=== PATIENT | female | born 1960 | race Caucasian/White ===

== ENCOUNTER → 2018-08-06 | Outpatient (CLI) | payer OTHER ==
--- NOTE | 2018-08-07 08:54 | MM ---
Reason for exam: screening (asymptomatic). Last mammogram was performed 2 years and 10 months ago. History: Patient history of endometrial cancer. Family history of breast cancer in mother. Excisional biopsy of the right breast. Physical Findings: A clinical breast exam by your physician is recommended on an annual basis and results should be correlated with mammographic findings. MG 3D Screening Mammo W/Cad Bilateral CC and MLO view(s) were taken. Prior study comparison: October 12, 2015, bilateral MG screening mammo w CAD. February 17, 2014, mammogram, performed at [facility]. The breast tissue is heterogeneously dense. This may lower the sensitivity of mammography. No suspicious abnormality. No significant changes when compared with prior studies. ASSESSMENT: Negative, BI-RAD 1 RECOMMENDATION: Routine screening mammogram of both breasts in 1 year.
== END | disposition home or self-care (01) ==
LOC: RADMAMWWP 07:30
PROVIDERS: ATTEND Family Medicine
DX: Z12.31 Encounter for screening mammogram for malignant neoplasm of breast (principal)
CPT/HCPCS: 77063; 77067

== ENCOUNTER → 2019-09-16 | Outpatient (CLI) | payer OTHER ==
--- NOTE | 2019-09-16 14:07 | US ---
EXAMINATION TYPE: US thyroid st tissue head/neck DATE OF EXAM: 09/16/2019 COMPARISON: NONE CLINICAL HISTORY: R13.10 dysphagia. Difficulty swallowing medication per patient GLAND SIZE: Right Lobe: 3.7 x 1.4 x 1.8 cm Overall Parenchyma: homogenous Left Lobe: 3.2 x 1.2 x 1.1 cm Overall Parenchyma: homogeneous Isthmus Thickness: 0.3 cm NODULES RIGHT: # of nodules measured on right: 2 largest of multiple 1. 0.7 X 0.8 x 0.4 cm hypoechoic mixed nodule at the mid pole with well-defined margins; present wi th microcalcifications. This nodule is wider than tall and shows intranodular vascularity. 2. 0.2 X 0.2 x 0.2 cm hypoechoic cystic nodule at the mid lower pole with well-defined margins. Th is nodule is wide as is tall and shows no intranodular vascularity. LEFT: # of nodules measured on left: 2 largest of multiple 1. 0.6 X 0.7 x 0.4 cm isoechoic solid nodule at the mid pole with well-defined margins. This nodul e is wider than tall and shows intranodular vascularity. 2. 0.8 X 0.7 x 0.7 cm hypoechoic mixed nodule at the lower pole with well-defined margins; present w ith microcalcifications. This nodule is wide as is tall and shows intranodular vascularity. ISTHMUS: # of nodules measured in the isthmus: 1 1. 0.2 X 0.2 x 0.1 cm hypoechoic cystic nodule at the lower isthmus with well-defined margins. Thi s nodule is wide as is tall and shows no intranodular vascularity. Bilateral neck scanned: prominent lymph node = 1.2 x 0.9 x 0.5cm is seen inferior to left submandibu lar gland . IMPRESSION: Nonspecific thyroid nodularity. Clinical correlation and progress studies are advised.
--- NOTE | 2019-09-17 12:16 | ECHOF ---
Referral Reason:R13.10 dysphagia, R01.1 cardiac murmur MEASUREMENTS -------- HEIGHT: 165.1 cm WEIGHT: 97.5 kg BP: RVIDd: 3.5 cm (< 3.3) IVSd: 1.0 cm (0.6 - 1.1) LVIDd: 4.2 cm (3.9 - 5.3) LVPWd: 1.1 cm (0.6 - 1.1) IVSs: 1.4 cm LVIDs: 3.8 cm LVPWs: 1.2 cm LA Diam: 3.6 cm (2.7 - 3.8) LAESV Index (A-L): 22.54 ml/m Ao Diam: 2.9 cm (2.0 - 3.7) AV Cusp: 1.9 cm (1.5 - 2.6) LA Diam: 3.7 cm (2.7 - 3.8) MV EXCURSION: 11.453 mm (> 18.000) MV EF SLOPE: 85 mm/s (70 - 150) EPSS: 0.2 cm MV E Marlon: 0.76 m/s MV DecT: 287 ms MV A Marlon: 0.97 m/s MV E/A Ratio: 0.78 RAP: 5.00 mmHg RVSP: 16.46 mmHg FINDINGS -------- Sinus rhythm. This was a technically adequate study. LV size, wall thickness and systolic function are normal, with an EF greater than 55%. The left bulmaro tricular size is normal. The right ventricle is normal in size. The left atrial size is normal. The right atrial size is normal. There is mild aortic valve sclerosis. There is no evidence of aortic regurgitation. Mild mitral annular calcification present. Mild mitral regurgitation is present. Mild tricuspid regurgitation present. Right ventricular systolic pressure is normal at < 35 mmHg. There is no pulmonic regurgitation present. The aortic root size is normal. There is no pericardial effusion. CONCLUSIONS -------- 1. Sinus rhythm. 2. This was a technically adequate study. 3. LV size, wall thickness and systolic function are normal, with an EF greater than 55%. 4. The left ventricular size is normal. 5. The right ventricle is normal in size. 6. The left atrial size is normal. 7. The right atrial size is normal. 8. There is mild aortic valve sclerosis. 9. Mild mitral annular calcification present. 10. Mild mitral regurgitation is present. 11. Mild tricuspid regurgitation present. 12. Right ventricular systolic pressure is normal at < 35 mmHg. 13. There is no pulmonic regurgitation present. 14. The aortic root size is normal. 15. There is no pericardial effusion. [employer]: Jazmyn Razo RDCS
== END | disposition home or self-care (01) ==
LOC: RADUSWWP 12:52
PROVIDERS: ATTEND Family Medicine
DX: I08.1 Rheumatic disorders of both mitral and tricuspid valves (principal); R13.10 Dysphagia, unspecified
CPT/HCPCS: 76536; 93306

== ENCOUNTER → 2019-11-04 | Outpatient (CLI) | payer OTHER ==
--- NOTE | 2019-11-05 08:47 | MM ---
Reason for exam: screening (asymptomatic). Last mammogram was performed 1 year and 3 months ago. History: Patient is postmenopausal and history of endometrial cancer. Family history of breast cancer in mother. Excisional biopsy of the right breast. Took hormonal contraceptives for 14 years. Physical Findings: A clinical breast exam by your physician is recommended on an annual basis and results should be correlated with mammographic findings. MG 3D Screening Mammo W/Cad Bilateral CC and MLO view(s) were taken. Prior study comparison: August 06, 2018, bilateral MG 3d screening mammo w/cad. October 12, 2015, bilateral MG screening mammo w CAD. The breast tissue is heterogeneously dense. This may lower the sensitivity of mammography. No significant changes when compared with prior studies. ASSESSMENT: Benign, BI-RAD 2 RECOMMENDATION: Routine screening mammogram of both breasts in 1 year.
== END | disposition home or self-care (01) ==
LOC: RADMAMWWP 13:19
PROVIDERS: ATTEND Family Medicine
DX: Z12.31 Encounter for screening mammogram for malignant neoplasm of breast (principal)
CPT/HCPCS: 77063; 77067

== ENCOUNTER 2020-01-19 13:23 | Emergency (ER) | payer OTHER ==
[2020-01-19 13:32] VITALS: RESP 18; TEMP 99.1
[2020-01-19 13:37] LABS: Glucose,Whole Blood 94 mg/dL (75-99)
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
[2020-01-19 13:57] LABS: Basophils % (A) 0 %; Eosinophils # (A) 0.1 k/uL (0-0.7); Eosinophils % (A) 1 %; HCT 37.1 % (34.0-46.0); HGB 12.8 gm/dL (11.4-16.0); Lymphocytes # (A) 2.2 k/uL (1.0-4.8); Lymphocytes % (A) 27 %; MCH 30.3 pg (25.0-35.0); MCHC 34.5 g/dL (31.0-37.0); MCV 87.8 fL (80.0-100.0); Mean Platelet Volume 6.5; Monocytes # (A) 0.4 k/uL (0-1.0); Monocytes % (A) 5 %; Neutrophils # (A) 5.6 k/uL (1.3-7.7); Neutrophils % (A) 66 %; Platelet Count 238 k/uL (150-450); RBC 4.22 m/uL (3.80-5.40); RDW 13.6 % (11.5-15.5); WBC 8.5 k/uL (3.8-10.6)
[2020-01-19 14:05] LABS: Prothrombin Time 10.1 sec (9.0-12.0)
[2020-01-19 14:06] LABS: Partial Thromboplastin Time 23.4 sec (22.0-30.0)
[2020-01-19 14:12] LABS: ALT 30 U/L (4-34); AST 52 U/L (14-36); African American GFR (CKD) >90 (>60 ml/min/1.73 sqM); Albumin 4.1 g/dL (3.5-5.0); Alcohol <10 mg/dL; Alkaline Phosphatase 131 U/L (38-126); Anion Gap 5 mmol/L; Blood Urea Nitrogen 16 mg/dL (7-17); Calcium 8.9 mg/dL (8.4-10.2); Carbon Dioxide 29 mmol/L (22-30); Chloride 102 mmol/L (98-107); Creatine Kinase 296 U/L (30-135); Glucose 99 mg/dL (74-99); Non-African American GFR(CKD) >90 (>60 ml/min/1.73 sqM); Potassium 4.2 mmol/L (3.5-5.1); Sodium 136 mmol/L (137-145); Total Bilirubin 0.3 mg/dL (0.2-1.3); Total Protein 7.2 g/dL (6.3-8.2)
[2020-01-19] MEDS ORDERED: HYDROmorphone 1 MG/ML 1 ML SYRINGE IVP STA (14:13)
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
[2020-01-19 15:40] VITALS: BP 148/88; PULSE 98
== END 2020-01-19 20:25 | disposition home or self-care (01) ==
LOC: EC 13:23
DX: S93.401A Sprain of unspecified ligament of right ankle, initial encounter (principal); S81.811A Laceration without foreign body, right lower leg, initial encounter; S81.831A Puncture wound without foreign body, right lower leg, initial encounter; S20.219A Contusion of unspecified front wall of thorax, initial encounter; S80.01XA Contusion of right knee, initial encounter; Z79.82 Long term (current) use of aspirin; Z79.899 Other long term (current) drug therapy; Z88.1 Allergy status to other antibiotic agents; V59.40XA Driver of pick-up truck or van injured in collision with unspecified motor vehicles in traffic accident, initial encounter; Y92.410 Unspecified street and highway as the place of occurrence of the external cause
CPT/HCPCS: 36415; 93005; 86900; 86901; 80053; 82550; 83605; 84484; 85025; 85610; 85730; 86850; 80320; 72170; 73502; 73590; 73610; 71045; 72125; 70450; 71260; 74177; 99284; 96374; 96375; J0690; J1170; Q9967

== ENCOUNTER → 2020-01-25 | Outpatient (CLI) | payer OTHER ==
--- NOTE | 2020-01-25 15:55 | US ---
EXAMINATION TYPE: US venous doppler duplex LE RT DATE OF EXAM: 01/25/2020 3:37 PM COMPARISON: NONE CLINICAL HISTORY: R22.41 Swelling, M52.561 Pain. Edema SIDE PERFORMED: Right TECHNIQUE: The lower extremity deep venous system is examined utilizing real time linear array sonog tre with graded compression, doppler sonography and color-flow sonography. VESSELS IMAGED: External Iliac Vein (EIV) Common Femoral Vein Deep Femoral Vein Greater Saphenous Vein * Femoral Vein Popliteal Vein Small Saphenous Vein * Proximal Calf Veins (* superficial vessels) Right Leg: Negative for DVT IMPRESSION: No evidence for DVT at this time.
== END | disposition home or self-care (01) ==
LOC: RADUSWWP 15:17
PROVIDERS: ATTEND Orthopaedic Surgery Orthopaedic Surgery of the Spine
DX: I80.01 Phlebitis and thrombophlebitis of superficial vessels of right lower extremity (principal)

== ENCOUNTER 2020-02-09 15:45 | Inpatient (IN) | payer MEDICAID, OTHER ==
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
[2020-02-09 16:40] LABS: Basophils % (A) 0 %; Eosinophils # (A) 0.1 k/uL (0-0.7); Eosinophils % (A) 1 %; HCT 37.6 % (34.0-46.0); Lymphocytes % (A) 28 %; MCH 29.7 pg (25.0-35.0); MCHC 34.7 g/dL (31.0-37.0); MCV 85.5 fL (80.0-100.0); Mean Platelet Volume 6.6; Monocytes # (A) 0.4 k/uL (0-1.0); Monocytes % (A) 5 %; Neutrophils # (A) 4.7 k/uL (1.3-7.7); Neutrophils % (A) 64 %; Platelet Count 283 k/uL (150-450); RBC 4.39 m/uL (3.80-5.40); RDW 13.6 % (11.5-15.5); WBC 7.3 k/uL (3.8-10.6)
[2020-02-09 16:48] LABS: ALT 26 U/L (4-34); AST 38 U/L (14-36); African American GFR (CKD) >90 (>60 ml/min/1.73 sqM); Albumin 4.3 g/dL (3.5-5.0); Alkaline Phosphatase 149 U/L (38-126); Anion Gap 9 mmol/L; Blood Urea Nitrogen 16 mg/dL (7-17); Calcium 9.3 mg/dL (8.4-10.2); Carbon Dioxide 26 mmol/L (22-30); Chloride 102 mmol/L (98-107); Glucose 96 mg/dL (74-99); Magnesium 1.7 mg/dL (1.6-2.3); Non-African American GFR(CKD) >90 (>60 ml/min/1.73 sqM); Potassium 4.1 mmol/L (3.5-5.1); Sodium 137 mmol/L (137-145); Total Bilirubin 0.4 mg/dL (0.2-1.3)
--- NOTE | 2020-02-09 16:54 | XR ---
EXAMINATION TYPE: XR ribs RT w pa chest xray DATE OF EXAM: 02/09/2020 COMPARISON: 01/19/2020 HISTORY: Pain TECHNIQUE: 5 views FINDINGS: Heart and mediastinum are normal. Lungs are clear. Diaphragm is normal. Bony thorax appears normal. There are chest leads. Pulmonary vascularity is normal. IMPRESSION: Normal chest. No change.
[2020-02-09 16:56] LABS: Prothrombin Time 10.1 sec (9.0-12.0)
[2020-02-09 16:58] LABS: Amphetamine Screen,Urine Not Detected (NotDetected); Barbiturate Screen,Urine Not Detected (NotDetected); Benzodiazepines Screen,Urine Detected (NotDetected); Cocaine Screen,Urine Not Detected (NotDetected); Methadone Screen, Urine Not Detected (NotDetected); Opiate Screen,Urine Detected (NotDetected); Oxycodone Screen, Urine Not Detected (NotDetected); Phencyclidine Screen,Urine Not Detected (NotDetected); Tricyclic Antidepressant,Urine Not Detected (NotDetected); Urn Cannabinoid Scrn Not Detected (NotDetected)
[2020-02-09 17:10] LABS: D-Dimer 1.41 mg/L FEU (<0.60)
--- NOTE | 2020-02-09 18:03 | CT ---
EXAMINATION TYPE: CT angio chest DATE OF EXAM: 02/09/2020 COMPARISON: None HISTORY: Right sided chest pain. CT DLP: 351 mGycm Automated exposure control for dose reduction was used. CONTRAST: Performed with IV Contrast, patient injected with 100 mL of Isovue 370. There are 3-D post processed images. The lungs are clear of consolidation. There is no evidence of a pulmonary mass. There is no pleural e ffusion. There is no pericardial effusion. Heart size is normal. There is normal contrast opacification of the pulmonary arteries. There are no filling defects. There are no hilar masses. There is no mediastinal adenopathy. Thoracic aorta is intact. There is no aneurysm or dissection. Ascending aorta measures 3 cm. The bony thorax is intact. Sternum is intact. Upper abdominal soft tissues are intact. IMPRESSION: Negative exam. No evidence of pulmonary embolism.
[2020-02-09] MEDS ORDERED: traMADol 50 MG TAB PO PRN (23:14)
[2020-02-09] MEDS ORDERED: MAG HYDROX/AL HYDROX/SIMETH 30 ML CUP PO PRN (23:15)
[2020-02-09] MEDS ORDERED: MAGNESIUM HYDROXIDE 2,400 MG/10 ML CUP PO PRN (23:15)
[2020-02-09] MEDS ORDERED: LORazepam 1 MG TAB PO PRN (23:15)
[2020-02-09] MEDS ORDERED: LORazepam 2 MG/ML INJ IM PRN (23:17)
[2020-02-09] MEDS ORDERED: HALOPERIDOL LACTATE 5 MG/ML 1 ML VIAL IM PRN (23:18)
[2020-02-10] MEDS: FLUoxetine HCL 20 MG CAP PO SCH ×3 (00:29→10:32)
[2020-02-10 07:51] LABS: Basophils % (A) 1 %; Eosinophils # (A) 0.1 k/uL (0-0.7); Eosinophils % (A) 1 %; HCT 38.5 % (34.0-46.0); HGB 12.9 gm/dL (11.4-16.0); Lymphocytes # (A) 2.3 k/uL (1.0-4.8); Lymphocytes % (A) 34 %; MCH 29.1 pg (25.0-35.0); MCHC 33.5 g/dL (31.0-37.0); MCV 86.9 fL (80.0-100.0); Mean Platelet Volume 6.6; Monocytes # (A) 0.3 k/uL (0-1.0); Monocytes % (A) 5 %; Neutrophils # (A) 3.9 k/uL (1.3-7.7); Neutrophils % (A) 58 %; Platelet Count 303 k/uL (150-450); RBC 4.43 m/uL (3.80-5.40); RDW 13.9 % (11.5-15.5); WBC 6.8 k/uL (3.8-10.6)
[2020-02-10 08:06] LABS: ALT 26 U/L (4-34); AST 39 U/L (14-36); African American GFR (CKD) >90 (>60 ml/min/1.73 sqM); Albumin 4.4 g/dL (3.5-5.0); Alkaline Phosphatase 125 U/L (38-126); Anion Gap 9 mmol/L; Blood Urea Nitrogen 15 mg/dL (7-17); Calcium 9.4 mg/dL (8.4-10.2); Carbon Dioxide 30 mmol/L (22-30); Chloride 99 mmol/L (98-107); Glucose 100 mg/dL (74-99); HDL Cholesterol 39 mg/dL (40-60); Non-African American GFR(CKD) >90 (>60 ml/min/1.73 sqM); Potassium 4.2 mmol/L (3.5-5.1); Sodium 138 mmol/L (137-145); Total Bilirubin 0.6 mg/dL (0.2-1.3)
[2020-02-10 08:17] LABS: Cholesterol 377 mg/dL (<200); Triglycerides 924 mg/dL (<150)
[2020-02-10] MEDS ORDERED: PNEUMOCOCCAL VACC-PNEUMOVAX 23 25 MCG/0.5 ML VIAL IM ONE (09:00)
[2020-02-10] MEDS ORDERED: NON FORMULARY DRUG (Potassium Gluconate [Potassium Gluconate] 99 MG Tablet.Er) PO SCH (09:00)
[2020-02-10] MEDS ORDERED: NON FORMULARY DRUG (Cholecalciferol (Vitamin D3) [Vitamin D3] 125 MCG Capsule) PO SCH (09:00)
[2020-02-10] MEDS ORDERED: NON FORMULARY DRUG (Vitamin C/Biotin [Hair, Skin And Nails] 1 EACH Tab.Chew) PO SCH (09:00)
[2020-02-10] MEDS: ASPIRIN 81 MG PO SCH (10:27)
[2020-02-10] MEDS: PANTOPRAZOLE 40 MG TABLET PO SCH (10:28)
[2020-02-10] MEDS: CALCIUM CARB-VIT D 500MG-200UN 1 EACH TAB PO SCH (10:28)
[2020-02-10] MEDS: MAGNESIUM OXIDE 400 MG TAB PO SCH (10:28)
[2020-02-10] MEDS: hydroCHLOROthiazide 25 MG TAB PO SCH (10:28)
[2020-02-10] MEDS: MULTIVITAMINS, THERA 1 EACH TAB PO SCH (10:28)
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
[2020-02-10 12:53] LABS: Hemoglobin A1C 5.7 % (4.0-6.0)
[2020-02-10] MEDS: ACETAMINOPHEN TAB 325 MG TAB PO PRN (16:28)
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
--- NOTE | 2020-02-10 18:24 | XR ---
EXAMINATION TYPE: XR ankle complete RT DATE OF EXAM: 02/10/2020 COMPARISON: NONE HISTORY: Ankle pain TECHNIQUE: 3 views FINDINGS: Ankle mortise is anatomic. I see no fracture nor dislocation. Joint spaces are fairly ramiro l. There are small degenerative cysts in the lateral dome of the talus. IMPRESSION: No fracture seen.
[2020-02-10] MEDS: PRAVASTATIN SODIUM 20 MG TAB PO SCH (19:56)
[2020-02-10] MEDS: TEMAZEPAM 15 MG CAP PO PRN (19:56)
[2020-02-11] MEDS: MAGNESIUM OXIDE 400 MG TAB PO SCH (09:07)
[2020-02-11] MEDS: CALCIUM CARB-VIT D 500MG-200UN 1 EACH TAB PO SCH (09:07)
[2020-02-11] MEDS: ASPIRIN 81 MG PO SCH (09:07)
[2020-02-11] MEDS: MULTIVITAMINS, THERA 1 EACH TAB PO SCH (09:07)
[2020-02-11] MEDS: hydroCHLOROthiazide 25 MG TAB PO SCH (09:07)
[2020-02-11] MEDS: VENLAFAXINE HCL ER 37.5 MG CAP PO SCH (09:07)
[2020-02-11] MEDS: FLUoxetine HCL 20 MG CAP PO SCH (09:07)
[2020-02-11] MEDS: PANTOPRAZOLE 40 MG TABLET PO SCH (09:07)
[2020-02-11] MEDS: ACETAMINOPHEN TAB 325 MG TAB PO PRN ×2 (09:09→20:24)
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
[2020-02-11] MEDS: PRAVASTATIN SODIUM 20 MG TAB PO SCH (20:23)
[2020-02-11] MEDS: TEMAZEPAM 15 MG CAP PO PRN (20:24)
[2020-02-12] MEDS: ACETAMINOPHEN TAB 325 MG TAB PO PRN ×2 (08:18→19:55)
[2020-02-12] MEDS: ASPIRIN 81 MG PO SCH (08:18)
[2020-02-12] MEDS: CALCIUM CARB-VIT D 500MG-200UN 1 EACH TAB PO SCH (08:18)
[2020-02-12] MEDS: FLUoxetine HCL 20 MG CAP PO SCH (08:19)
[2020-02-12] MEDS: hydroCHLOROthiazide 25 MG TAB PO SCH (08:19)
[2020-02-12] MEDS: PANTOPRAZOLE 40 MG TABLET PO SCH (08:19)
[2020-02-12] MEDS: MAGNESIUM OXIDE 400 MG TAB PO SCH (08:19)
[2020-02-12] MEDS: VENLAFAXINE HCL ER 37.5 MG CAP PO SCH (08:19)
[2020-02-12] MEDS: MULTIVITAMINS, THERA 1 EACH TAB PO SCH (08:19)
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
[2020-02-12 19:28] LABS: Appearance,Urine Clear (Clear); Bilirubin,Urine Negative (Negative); Blood,Urine Negative (Negative); Color,Urine Light Yellow; Glucose,Urine (UA) Negative (Negative); Ketones,Urine Negative (Negative); Leukocyte Esterase,Urine Negative (Negative); Nitrite,Urine Negative (Negative); PH, Urine 5.5 (5.0-8.0); Protein,Urine Negative (Negative); Specific Gravity,Urine 1.016 (1.001-1.035); Urobilinogen,Urine <2.0 mg/dL (<2.0)
[2020-02-12] MEDS: TEMAZEPAM 15 MG CAP PO PRN (19:55)
[2020-02-12] MEDS: PRAVASTATIN SODIUM 20 MG TAB PO SCH (19:55)
[2020-02-13] MEDS: ASPIRIN 81 MG PO SCH (08:08)
[2020-02-13] MEDS: MAGNESIUM OXIDE 400 MG TAB PO SCH (08:08)
[2020-02-13] MEDS: MULTIVITAMINS, THERA 1 EACH TAB PO SCH (08:08)
[2020-02-13] MEDS: PANTOPRAZOLE 40 MG TABLET PO SCH (08:09)
[2020-02-13] MEDS: CALCIUM CARB-VIT D 500MG-200UN 1 EACH TAB PO SCH (08:09)
[2020-02-13] MEDS: VENLAFAXINE HCL ER 75 MG CAP PO SCH (08:09)
[2020-02-13] MEDS: hydroCHLOROthiazide 25 MG TAB PO SCH (08:09)
[2020-02-13] MEDS: ACETAMINOPHEN TAB 325 MG TAB PO PRN ×2 (08:11→20:03)
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
[2020-02-13] MEDS: PRAVASTATIN SODIUM 20 MG TAB PO SCH (20:03)
[2020-02-13] MEDS: TEMAZEPAM 15 MG CAP PO PRN (20:03)
[2020-02-14] MEDS: CALCIUM CARB-VIT D 500MG-200UN 1 EACH TAB PO SCH (08:01)
[2020-02-14] MEDS: MULTIVITAMINS, THERA 1 EACH TAB PO SCH (08:01)
[2020-02-14] MEDS: hydroCHLOROthiazide 25 MG TAB PO SCH (08:01)
[2020-02-14] MEDS: PANTOPRAZOLE 40 MG TABLET PO SCH (08:01)
[2020-02-14] MEDS: ASPIRIN 81 MG PO SCH (08:01)
[2020-02-14] MEDS: VENLAFAXINE HCL ER 75 MG CAP PO SCH (08:01)
[2020-02-14] MEDS: MAGNESIUM OXIDE 400 MG TAB PO SCH (08:02)
[2020-02-14 08:05] VITALS: RESP 20
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
[2020-02-14] MEDS: ACETAMINOPHEN TAB 325 MG TAB PO PRN ×2 (16:41→20:00)
[2020-02-14] MEDS: PRAVASTATIN SODIUM 20 MG TAB PO SCH (20:01)
[2020-02-15 06:25] VITALS: BP 115/80; PULSE 65; TEMP 97.7
[2020-02-15] MEDS: ASPIRIN 81 MG PO SCH (07:49)
[2020-02-15] MEDS: CALCIUM CARB-VIT D 500MG-200UN 1 EACH TAB PO SCH (07:49)
[2020-02-15] MEDS: MAGNESIUM OXIDE 400 MG TAB PO SCH (07:50)
[2020-02-15] MEDS: hydroCHLOROthiazide 25 MG TAB PO SCH (07:50)
[2020-02-15] MEDS: ACETAMINOPHEN TAB 325 MG TAB PO PRN (07:51)
[2020-02-15] MEDS: VENLAFAXINE HCL ER 75 MG CAP PO SCH (07:51)
[2020-02-15] MEDS: MULTIVITAMINS, THERA 1 EACH TAB PO SCH (07:51)
[2020-02-15] MEDS: PANTOPRAZOLE 40 MG TABLET PO SCH (07:51)
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
== END 2020-02-15 12:05 | disposition home or self-care (01) | DRG 882 ==
LOC: EC 15:45 → 3MHU 21:53
PROVIDERS: ADMIT Psychiatry & Neurology Psychiatry; ATTEND Psychiatry & Neurology Psychiatry
PROC: 3E0234Z Introduction of Serum, Toxoid and Vaccine into Muscle, Percutaneous Approach (ICD-10-PCS; principal; 2020-02-10)
DX: F43.11 Post-traumatic stress disorder, acute (principal); R45.851 Suicidal ideations; F31.32 Bipolar disorder, current episode depressed, moderate; Z23 Encounter for immunization; Z20.828 Contact with and (suspected) exposure to other viral communicable diseases; S20.219A Contusion of unspecified front wall of thorax, initial encounter; S80.01XA Contusion of right knee, initial encounter; K21.9 Gastro-esophageal reflux disease without esophagitis; I10 Essential (primary) hypertension; E78.5 Hyperlipidemia, unspecified; E04.1 Nontoxic single thyroid nodule; G47.00 Insomnia, unspecified; G89.29 Other chronic pain; R26.2 Difficulty in walking, not elsewhere classified; E66.9 Obesity, unspecified; Z68.38 Body mass index [BMI] 38.0-38.9, adult; Z79.82 Long term (current) use of aspirin; Z79.899 Other long term (current) drug therapy; Z90.49 Acquired absence of other specified parts of digestive tract; Z87.19 Personal history of other diseases of the digestive system; Z98.890 Other specified postprocedural states; Z88.1 Allergy status to other antibiotic agents; Z88.8 Allergy status to other drugs, medicaments and biological substances; V43.52XA Car driver injured in collision with other type car in traffic accident, initial encounter; Y92.410 Unspecified street and highway as the place of occurrence of the external cause; Z81.8 Family history of other mental and behavioral disorders
CPT/HCPCS: 36415; 71275; 80053; 80061; 80306; 81003; 82075; 83036; 83735; 84443; 84484; 85025; 85379; 85610; 85730; 87635; 90732; 93005; 99285

== ENCOUNTER → 2020-02-09 | Outpatient (CLI) | payer OTHER ==
--- NOTE | 2020-02-09 17:55 | US ---
EXAMINATION TYPE: US venous doppler duplex LE RT DATE OF EXAM: 02/09/2020 3:36 PM COMPARISON: 01/25/2020 CLINICAL HISTORY: 59-year-old female R22.41 Localized swelling. SIDE PERFORMED: Right TECHNIQUE: The lower extremity deep venous system is examined utilizing real time linear array sonog tre with graded compression, doppler sonography and color-flow sonography. FINDINGS: VESSELS IMAGED: Common Femoral Vein Deep Femoral Vein Greater Saphenous Vein * Femoral Vein Popliteal Vein Small Saphenous Vein * Proximal Calf Veins PTV's and GSV* in entirety scanned per order. (* superficial vessels) Right Leg: Negative for DVT IMPRESSION: No evidence for DVT within the right lower extremity.
== END | disposition home or self-care (01) ==
LOC: RADUSWWP 15:03
PROVIDERS: ATTEND Orthopaedic Surgery
DX: I80.3 Phlebitis and thrombophlebitis of lower extremities, unspecified (principal)

== ENCOUNTER → 2020-04-06 | Outpatient (CLI) | payer OTHER ==
[2020-04-06 15:43] VITALS: BP 144/85; PULSE 103; RESP 18; TEMP 98.5; BMI 39.6
--- NOTE | 2020-04-06 16:05 | P.HPBAR ---
Bariatric H&P - History & Physicial H&P Date: 04/06/20 History & Physicial: Visit/CC: initial visit Patient initial contact: Initial weight: Initial weight in pounds: Height: 5 ft 4 in Initial BMI: Last weight: Current weight: 104.78 kg Current weight in pounds: 231.00 Current BMI: 39.6 [place] body weight (based on NIH guidelines): 54.431 kg Excess body weight loss: The patient is a 60 year-old F who presents for Bariatric Assessment. DATE OF SERVICE: 04/06/2020 REASON FOR CONSULTATION: Initial bariatric evaluation. HISTORY OF PRESENT ILLNESS: Vangie Spears is a 60-year-old female who comes with lifelong morbid obesity. She comes in looking into the gastric bypass. She has tried Weight watchers, Ali diet programs for weight loss and Vesna Patrice. Her highest weight is at present. Most of her past attempted weight loss was with [employer] of 60 pounds. She has sisters and her mother with troubles with weight loss and obesity. She denies personal or family history of stomach cancer. Her aunt had esophageal cancer. She has gastroesophageal reflux disease and takes Omeprazole. She reports food gets stuck in her throat. She had her colonoscopy. She reports troubles with poor sleep. She has arthritis of the lower back, hips, and knee from her obesity. She presents today first time in consultation for surgical weight loss options. At height of 5 feet 4 inches, her ideal body weight is 144 pounds. She comes in 231 pounds. Her body mass index is 39.7. She is 87 pounds overweight. PAST MEDICAL HISTORY: 1. Morbid obesity due to excess calories 2. Body mass index of 39.7, initial 3. Osteoarthritis of the knees. 4. Osteoarthritis of the lower back 5. Hypertensive heart disease. 6. Gastroesophageal reflux disease 7. Hyperlipidemia 8. Depressive disorder 9. Osteoarthritis of the hips PAST SURGICAL HISTORY: 1. Thyroid biopsy 2. Right breast lumpectomy 3. Tonsillectomy 4. Dilation and curettage 5. Cholecystectomy HOME MEDICATIONS: Home Medications Medication Instructions Recorded Confirmed Aspirin [Adult Low Dose Aspirin EC] 81 mg PO DAILY 10/24/15 04/06/20 Omeprazole 20 mg PO DAILY 10/24/15 04/06/20 Calcium Carbonate/Vitamin D3 1 cap PO DAILY 02/09/20 04/06/20 [Calcium 600-Vit D3 12.5 Mcg (500 Iu)] Cholecalciferol (Vitamin D3) 125 mcg PO DAILY 02/09/20 04/06/20 [Vitamin D3 (5000 Iu)] Magnesium Oxide [[place]] 500 mg PO DAILY 02/09/20 04/06/20 Multivit-Min/Iron/Folic/Lutein 1 tab PO DAILY 02/09/20 04/06/20 [Centrum Silver Women Tablet] Potassium Gluconate 99 mg PO DAILY 02/09/20 04/06/20 Pravastatin Sodium [Pravachol] 20 mg PO HS 02/09/20 04/06/20 Vitamin C/Biotin [Hair, Skin and 1 tab PO DAILY 02/09/20 04/06/20 Nails] hydroCHLOROthiazide [Hydrodiuril] 25 mg PO DAILY 02/09/20 04/06/20 traMADol HCL 50 mg PO TID PRN 02/09/20 04/06/20 Butalbital/Aspirin/Caffeine 1 - 2 tab PO Q8H PRN 04/06/20 04/06/20 [Ffgaxw-Eetjujd-Fwguooui 50-325-40 mg] Fenofibrate Nanocrystallized 145 mg PO DAILY 04/06/20 04/06/20 [Tricor] Previous Rx's Medication Instructions Recorded Venlafaxine HCl ER [Effexor XR] 75 mg PO DAILY #30 cap.er.24h 02/15/20 ALLERGIES: Allergies Allergy/AdvReac Type Severity Reaction Status Date / Time atorvastatin [From Lipitor] AdvReac Unknown Verified 04/06/20 17:01 cephalexin [From Keflex] AdvReac Unknown Verified 04/06/20 17:01 SOCIAL HISTORY: Past tobacco use. FAMILY HISTORY: No family history of ulcerative colitis disease or Crohn's disease. Family history of morbid obesity. No lupus in the family. No reports of stomach cancer. Aunt with stomach cancer. REVIEW OF ORGAN SYSTEMS: CONSTITUTIONAL: At height of 5 feet 4 inches, her ideal body weight is 144 pounds. She comes in 231 pounds. Her body mass index is 39.7. She is 87 pounds overweight. HEENT: Denies any active troubles with vision or hearing. Has troubles with swallowing. ENDOCRINE: Denies diabetes. No hypothyroidism. CARDIOVASCULAR: Denies reports of palpitations or heart attacks or chest pain. RESPIRATORY: Has daytime somnolence. Has troubles with sleep. Denies shortness of breath. GASTROINTESTINAL: Denies any bright red blood per rectum. No diarrhea. No constipation. Past colonoscopy MUSCULOSKELETAL: Has lower back pain and joint pain. Has osteoarthritis of the knees. NEURO: No headaches. No seizure disorders. PSYCH: Has depression. No suicidal ideation. RHEUMATOLOGIC: No lupus. No rheumatoid arthritis. HEMATOLOGIC: Denies any abnormal bleeding or bruising. No personal history of DVTs. SKIN: No rash. No skin cancer. PHYSICAL EXAM: VITAL SIGNS: Height 5 foot 4 inches, weight 231 pounds. BMI 39.7 Vital Signs Temp 98.5 F 04/06/20 15:35 Pulse 103 H 04/06/20 15:35 Resp 18 04/06/20 15:35 BP 144/85 04/06/20 15:35 Pulse Ox GENERAL: Well-developed in no acute distress. HEENT: No scleral icterus. Extraocular movements grossly intact. Hears conversational speech. No nasal drainage. NECK: Supple without lymphadenopathy. CHEST: Nonlabored respirations with equal bilateral excursions. CARDIOVASCULAR: Tachycardic. Distal 2+ pulses. ABDOMEN: Obese, soft, nontender, nondistended. MUSCULOSKELETAL: No clubbing, cyanosis. NEURO: No focal or lateralizing signs. Cranial nerves 2 through 12 grossly within normal limits. PSYCH: Appropriate affect. Alert and oriented to person, place and time. SKIN: Good skin turgor. Well perfused. ASSESSMENT: 1. Morbid obesity due to excess calories 2. Body mass index of 39.7, initial 3. Osteoarthritis of the knees. 4. Osteoarthritis of the lower back 5. Hypertensive heart disease. 6. Gastroesophageal reflux disease 7. Hyperlipidemia 8. Depressive disorder 9. Osteoarthritis of the hips PLAN: 1. Surgical options including a band, gastric bypass, sleeve gastrectomy were described in detail. Alternatives such as gastric balloon including duodenal switch were described. She is looking into the gastric bypass. 2. The [place] bariatric surgical collaborative data and outcomes calculator were described with surgical options. 3. Recommend a bariatric metabolic panel to evaluate for micro- including m acronutrient deficiencies. 4. For history of daytime somnolence, recommend evaluation and treatment for sleep apnea. 5. Dietary surveillance and counseling was reviewed. Increased protein intake over 65 grams daily advised. 6. Will need cardiac risk assessment. 7. Recommend medical risk assessment. 8. Psych assessment per insurance guidelines. 9. Recommend upper endoscopy. 10. Recommend 12-lead EKG. 11. Recommend esophagram for dysphagia Thank you for this consultation. Laboratory Last Values WBC 6.8 k/uL (3.8-10.6) 04/06/20 16:44 RBC 4.30 m/uL (3.80-5.40) 04/06/20 16:44 Hgb 12.6 gm/dL (11.4-16.0) 04/06/20 16:44 Hct 37.5 % (34.0-46.0) 04/06/20 16:44 MCV 87.2 fL (80.0-100.0) 04/06/20 16:44 MCH 29.3 pg (25.0-35.0) 04/06/20 16:44 MCHC 33.6 g/dL (31.0-37.0) 04/06/20 16:44 RDW 13.0 % (11.5-15.5) 04/06/20 16:44 Plt Count 252 k/uL (150-450) 04/06/20 16:44 MPV 6.9 04/06/20 16:44 PT 11.1 sec (9.9-11.9) 04/06/20 16:44 INR 1.03 (0.90-1.11) 04/06/20 16:44 APTT 31.2 sec (23.5-31.0) H 04/06/20 16:44 Sodium 140 mmol/L (135-145) 04/06/20 16:44 Potassium 3.6 mmol/L (3.5-5.5) 04/06/20 16:44 Chloride 100 mmol/L (96-109) 04/06/20 16:44 Carbon Dioxide 29.4 mmol/L (21.6-31.8) 04/06/20 16:44 Anion Gap 10.60 mmol/L (4.00-12.00) 04/06/20 16:44 BUN 24.0 mg/dL (9.0-27.0) 04/06/20 16:44 Creatinine 0.9 mg/dL (0.6-1.5) 04/06/20 16:44 Est GFR (CKD-EPI)AfAm 81.7 (60.0-200.0) 04/06/20 16:44 Est GFR (CKD-EPI)NonAf 70.5 (60.0-200.0) 04/06/20 16:44 BUN/Creatinine Ratio 26.67 Ratio (12.00-20.00) H 04/06/20 16:44 Glucose 115 mg/dL (70-110) H 04/06/20 16:[address] Glu mg/dL 126 04/06/20 16:44 Hemoglobin A1c 6.0 % (4.0-6.0) 04/06/20 16:44 Calcium 9.6 mg/dL (8.7-10.3) 04/06/20 16:44 Phosphorus 3.1 mg/dL (2.4-5.1) 04/06/20 16:44 Magnesium 1.7 mg/dL (1.5-2.4) 04/06/20 16:44 Iron 88 ug/dL (50-170) 04/06/20 16:44 TIBC 341 ug/dL (228-460) 04/06/20 16:44 % Saturation 25.81 (12.00-45.00) 04/06/20 16:44 Ferritin 96.2 ng/mL (10.0-291.0) 04/06/20 16:44 Total Bilirubin 0.2 mg/dL (0.3-1.2) L 04/06/20 16:44 AST 48 U/L (13-35) H 04/06/20 16:44 ALT 41 U/L (8-44) 04/06/20 16:44 Alkaline Phosphatase 154 U/L (41-126) H 04/06/20 16:44 Total Protein 7.3 g/dL (6.2-8.2) 04/06/20 16:44 Albumin 4.80 g/dL (3.80-4.90) 04/06/20 16:44 Globulin 2.5 g/dL (1.6-3.3) 04/06/20 16:44 Albumin/Globulin Ratio 1.92 g/dL (1.60-3.17) 04/06/20 16:44 Prealbumin 30.0 mg/dL (18.0-42.0) 04/06/20 16:44 Triglycerides 782.0 mg/dL (0.0-149.0) H 04/06/20 16:44 Cholesterol 295 mg/dL (0-200) H 04/06/20 16:44 LDL Cholesterol Direct 112.0 04/06/20 16:44 LDL Cholesterol, Calc mg/dL (0.0-131.0) 04/06/20 16:44 VLDL Cholesterol, Calc mg/dL (5.00-40.00) 04/06/20 16:44 HDL Cholesterol 52.0 mg/dL (40.0-60.0) 04/06/20 16:44 Cholesterol/HDL Ratio 5.67 04/06/20 16:44 Vitamin A 88 ug/dL (38-106) 04/06/20 16:44 Vitamin B1 68 ug/L (38-122) 04/06/20 16:44 Vitamin B12 527.0 pg/mL (200.0-944.0) 04/06/20 16:44 Vitamin D 25-Hydroxy 26.9 ng/mL (30.0-100.0) L 04/06/20 16:44 Folate 15.3 ng/mL 04/06/20 16:44 TSH 1.200 uIU/mL (0.350-5.500) 04/06/20 16:44 PTH Intact 31.1 pg/mL (14.0-72.0) 04/06/20 16:44 Copper 1470 ug/L (810-1990) 04/06/20 16:44 Selenium 129 mcg/L (63-160) 04/06/20 16:44 Zinc 57 ug/dL (60-130) L 04/06/20 16:44 EKG EKG PERFORMED 04/06/20 16:44 Past Medical History Past Medical History: GERD/Reflux, Hyperlipidemia, Hypertension History of Any Multi-Drug Resistant Organisms: None Reported Past Surgical History: Cholecystectomy, Tonsillectomy Additional Past Surgical History / Comment(s): lumpectomy (R) breast; thyroid biopsy 2019; D&C during menopause (2014?) Past Anesthesia/Blood Transfusion Reactions: No Reported Reaction Past Psychological History: Depression Smoking Status: Former smoker Past Alcohol Use History: None Reported Past Drug Use History: None Reported Surgical - Exam Vital Signs Temp Pulse Resp BP 98.5 F 103 H 18 144/85 04/06/20 15:35 04/06/20 15:35 04/06/20 15:35 04/06/20 15:35 Results - Labs 04/06/20 16:44 04/06/20 16:44 Bariatric Checklist Checklist: Plan: Checklist: EGD: 1. Hiatal hernia: 2. H. Pylori: HgbA1c: Vitamin D: Smoking: Primary care physician referral: [facility] Psychiatry clearance: Cardiology clearance: Sleep study: Diet journal: VTE risk score: VTE risk level: Rehab needs at discharge:
[2020-04-06 17:54] LABS: HCT 37.5 % (34.0-46.0); HGB 12.6 gm/dL (11.4-16.0); MCH 29.3 pg (25.0-35.0); MCHC 33.6 g/dL (31.0-37.0); MCV 87.2 fL (80.0-100.0); Mean Platelet Volume 6.9; Platelet Count 252 k/uL (150-450); WBC 6.8 k/uL (3.8-10.6)
[2020-04-07 03:17] LABS: Ferritin 96.2 ng/mL (10.0-291.0)
[2020-04-07 03:40] LABS: % Iron Saturation 25.81 (12.00-45.00); African American GFR (CKD) 81.7 (60.0-200.0); Albumin 4.8 g/dL (3.80-4.90); Albumin/Globulin Ratio 1.92 (1.60-3.17); Anion Gap 10.6 mmol/L (4.00-12.00); BUN/Creat Ratio 26.67 Ratio (12.00-20.00); Calcium 9.6 mg/dL (8.7-10.3); Carbon Dioxide 29.4 mmol/L (21.6-31.8); Chol/HDL Ratio 5.67; Folate, Serum 15.3 ng/mL; Globulin 2.5 g/dL (1.6-3.3); Magnesium 1.7 mg/dL (1.5-2.4); Non-African American GFR(CKD) 70.5 (60.0-200.0); Phosphorus 3.1 mg/dL (2.4-5.1); Potassium 3.6 mmol/L (3.5-5.5); Total Bilirubin 0.2 mg/dL (0.3-1.2); Total Protein 7.3 g/dL (6.2-8.2)
[2020-04-07 04:31] LABS: INR 1.03 (0.90-1.11); Partial Thromboplastin Time 31.2 sec (23.5-31.0); Prothrombin Time 11.1 sec (9.9-11.9)
[2020-04-08 06:14] LABS: Zinc, Serum 57 ug/dL (60-130)
[2020-04-08 08:28] LABS: Vit B1(Thiamine) 68 ug/L (38-122)
[2020-04-11 07:47] LABS: Vitamin A 88 ug/dL (38-106)
[2020-04-11 18:06] LABS: Selenium 129 mcg/L (63-160)
== END | disposition home or self-care (01) ==
LOC: BARWHC3 14:42
PROVIDERS: ATTEND Surgery Plastic and Reconstructive Surgery
DX: E66.01 Morbid (severe) obesity due to excess calories (principal); M17.0 Bilateral primary osteoarthritis of knee; M47.9 Spondylosis, unspecified; I11.9 Hypertensive heart disease without heart failure; K21.9 Gastro-esophageal reflux disease without esophagitis; E78.5 Hyperlipidemia, unspecified; F32.9 Major depressive disorder, single episode, unspecified; M16.0 Bilateral primary osteoarthritis of hip; D50.8 Other iron deficiency anemias; E44.0 Moderate protein-calorie malnutrition; E55.9 Vitamin D deficiency, unspecified; K74.1 Hepatic sclerosis; N19 Unspecified kidney failure; K50.90 Crohn's disease, unspecified, without complications; Z88.8 Allergy status to other drugs, medicaments and biological substances; Z88.1 Allergy status to other antibiotic agents; Z79.899 Other long term (current) drug therapy; Z68.39 Body mass index [BMI] 39.0-39.9, adult; Z79.84 Long term (current) use of oral hypoglycemic drugs; Z79.1 Long term (current) use of non-steroidal anti-inflammatories (NSAID); Z79.82 Long term (current) use of aspirin
CPT/HCPCS: 84255; 84134; 84425; 80061; 80053; 82607; 82728; 82525; 82746; 83540; 83550; 83735; 84100; 84443; 84590; 84630; 85027; 85610; 85730; 83721; 82306; 83970; 83036; 93005; G0463; 99211

== ENCOUNTER 2020-05-11 07:50 | Day surgery (SDC) | payer OTHER ==
[2020-05-05 16:10] VITALS: BMI 39.2
[~2020-05-11 07:50] MED LIST: LACTATED RINGERS 1,000 ML IV SCH; LIDOCAINE 1% (10MG/ML) FOR IV START INTRADERMA PRN
[2020-05-11 08:36] VITALS: TEMP 98.4
[2020-05-11] MEDS: LACTATED RINGERS 1,000 ML IV SCH ×2 (08:47→09:23)
--- NOTE | 2020-05-11 08:47 | P.GSHP ---
History of Present Illness H&P Date: 05/11/20 CHIEF COMPLAINT: GERD HISTORY OF PRESENT ILLNESS: The patient is a 60-year-old female who presents reports gastroesophageal reflux disease. Upper endoscopy was offered for further evaluation and management. PAST MEDICAL HISTORY: Please see list. PAST SURGICAL HISTORY: Please see list. MEDICATIONS: Please see list. ALLERGIES: Please see list. SOCIAL HISTORY: No illicit drug use FAMILY HISTORY: No reports of Crohn disease or ulcerative colitis. REVIEW OF ORGAN SYSTEMS: CONSTITUTIONAL: No reports of fevers or chills. GI: Denies any blood in stools or constipation. PHYSICAL EXAM: VITAL SIGNS: Stable GENERAL: Well-developed and pleasant in no acute distress. HEENT: No scleral icterus. Extraocular movements grossly intact. Moist buccal mucosa. NECK: Supple without lymphadenopathy. CHEST: Unlabored respirations. Equal bilateral excursions. CARDIOVASCULAR: Regular rate and rhythm. Distal 2+ pulses. ABDOMEN: Soft, nondistended. MUSCULOSKELETAL: No clubbing, cyanosis, or edema. ASSESSMENT: 1. Gastroesophageal reflux disease PLAN: 1. Recommend proceeding with an upper endoscopy Past Medical History Past Medical History: GERD/Reflux, Hyperlipidemia, Hypertension, Osteoarthritis (OA) History of Any Multi-Drug Resistant Organisms: None Reported Past Surgical History: Breast Surgery, Cholecystectomy, Tonsillectomy Additional Past Surgical History / Comment(s): Right breast lumpectomy, thyroid biopsy, D&C. Past Anesthesia/Blood Transfusion Reactions: No Reported Reaction Past Psychological History: Anxiety, Depression Smoking Status: Former smoker Past Alcohol Use History: Rare Additional Past Alcohol Use History / Comment(s): Quit smoking 15 yrs ago. Past Drug Use History: None Reported - Past Family History Mother Family Medical History: Cancer Additional Family Medical History / Comment(s): Thyroid and breast cancer. Medications and Allergies Home Medications Medication Instructions Recorded Confirmed Type Aspirin [Adult Low Dose Aspirin EC] 81 mg PO DAILY 10/24/15 05/11/20 History Omeprazole 20 mg PO DAILY 10/24/15 05/11/20 History Calcium Carbonate/Vitamin D3 1 cap PO DAILY 02/09/20 05/11/20 History [Calcium 600-Vit D3 12.5 Mcg (500 Iu)] Cholecalciferol (Vitamin D3) 250 mcg PO DAILY 02/09/20 05/11/20 History [Vitamin D3 (5000 Iu)] Multivit-Min/Iron/Folic/Lutein 1 tab PO DAILY 02/09/20 05/11/20 History [Centrum Silver Women Tablet] Potassium Gluconate 99 mg PO DAILY 02/09/20 05/11/20 History Pravastatin Sodium [Pravachol] 20 mg PO HS 02/09/20 05/11/20 History Vitamin C/Biotin [Hair, Skin and 1 tab PO DAILY 02/09/20 05/11/20 History Nails] hydroCHLOROthiazide [Hydrodiuril] 25 mg PO DAILY 02/09/20 05/11/20 History Venlafaxine HCl ER [Effexor XR] 75 mg PO DAILY #30 cap.er.24h 02/15/20 05/11/20 Rx Fenofibrate Nanocrystallized 145 mg PO DAILY 04/06/20 05/11/20 History [Tricor] Cyclobenzaprine [Flexeril] 10 mg PO HS 05/05/20 05/11/20 History Ibuprofen [Motrin] 800 mg PO HS 05/05/20 05/11/20 History Magnesium 400 mg PO DAILY 05/05/20 05/11/20 History Metoprolol Succinate [Toprol XL] 25 mg PO HS 05/05/20 05/11/20 History Zinc 50 mg PO DAILY 05/05/20 05/11/20 History Allergies Allergy/AdvReac Type Severity Reaction Status Date / Time atorvastatin [From Lipitor] AdvReac Severe Verified 05/11/20 08:32 Muscle Spasms cephalexin [From Keflex] AdvReac Yeast Verified 05/11/20 08:32 Infection Surgical - Exam Vital Signs Temp Pulse Resp BP Pulse Ox 98.4 F 91 20 144/75 96 05/11/20 08:34 05/11/20 08:34 05/11/20 08:34 05/11/20 08:34 05/11/20 08:34
[2020-05-11] MEDS ORDERED: PROPOFOL 10 MG/ML 20 ML VIAL IV ONE (09:24)
--- NOTE | 2020-05-11 09:42 | P.PCN ---
Date of Procedure: 05/11/20 Description of Procedure: PREOPERATIVE DIAGNOSIS: Gastroesophageal reflux disease. Morbid obesity. POSTOPERATIVE DIAGNOSIS: Morbid obesity. Gastritis. Gastroesophageal reflux disease. OPERATION: Esophagogastroduodenoscopy with biopsies along antrum. SURGEON: Amber Bowen MD ANESTHESIA: MAC. INDICATIONS: The patient is a 60-year-old female who presents with a history of reflux disease. Benefits and risks of the procedure were described. Informed consent was obtained. DESCRIPTION: The patient was brought into the endoscopy suite and laid in the left lateral decubitus position. An Olympus gastroscope was passed along the posterior oropharynx down to the distal esophagus where the squamocolumnar junction was encountered at 36 cm from the incisors. The stomach was entered and no bile reflux was found. Additional findings are listed below. Biopsies with cold forceps were obtained of the antrum. The first through third portion of the duodenum was examined and unremarkable. Retroflexion of the scope confirmed Hill grade 1 lower esophageal valve. The squamocolumnar junction demonstrated LA grade B erosive esophagitis. The stomach was desufflated. The patient tolerated the procedure well. FINDINGS: Squamocolumnar junction 36 cm from the incisors. Diaphragmatic hiatus at 36 cm. Hill grade 1 lower esophageal valve. LA grade B erosive esophagitis. No active duodenitis. Chronic gastritis RECOMMENDATIONS: Upper endoscopy as needed. Plan - Discharge Summary Discharge Rx Participant: No New Discharge Prescriptions: Continue Omeprazole 20 mg PO DAILY Aspirin [Adult Low Dose Aspirin EC] 81 mg PO DAILY Vitamin C/Biotin [Hair, Skin and Nails] 1 tab PO DAILY Potassium Gluconate 99 mg PO DAILY Cholecalciferol (Vitamin D3) [Vitamin D3 (5000 Iu)] 250 mcg PO DAILY Calcium Carbonate/Vitamin D3 [Calcium 600-Vit D3 12.5 Mcg (500 Iu)] 1 cap PO DAILY hydroCHLOROthiazide [Hydrodiuril] 25 mg PO DAILY Pravastatin Sodium [Pravachol] 20 mg PO HS Multivit-Min/Iron/Folic/Lutein [Centrum Silver Women Tablet] 1 tab PO DAILY Venlafaxine HCl ER [Effexor XR] 75 mg PO DAILY #30 cap.er.24h Fenofibrate Nanocrystallized [Tricor] 145 mg PO DAILY Magnesium 400 mg PO DAILY Metoprolol Succinate [Toprol XL] 25 mg PO HS Ibuprofen [Motrin] 800 mg PO HS Cyclobenzaprine [Flexeril] 10 mg PO HS Zinc 50 mg PO DAILY Discharge Medication List Aspirin [Adult Low Dose Aspirin EC] 81 mg PO DAILY 10/24/15 [History] Omeprazole 20 mg PO DAILY 10/24/15 [History] Calcium Carbonate/Vitamin D3 [Calcium 600-Vit D3 12.5 Mcg (500 Iu)] 1 cap PO DAILY 02/09/20 [History] Cholecalciferol (Vitamin D3) [Vitamin D3 (5000 Iu)] 250 mcg PO DAILY 02/09/20 [History] Multivit-Min/Iron/Folic/Lutein [Centrum Silver Women Tablet] 1 tab PO DAILY 02/09/20 [History] Potassium Gluconate 99 mg PO DAILY 02/09/20 [History] Pravastatin Sodium [Pravachol] 20 mg PO HS 02/09/20 [History] Vitamin C/Biotin [Hair, Skin and Nails] 1 tab PO DAILY 02/09/20 [History] hydroCHLOROthiazide [Hydrodiuril] 25 mg PO DAILY 02/09/20 [History] Venlafaxine HCl ER [Effexor XR] 75 mg PO DAILY #30 cap.er.24h 02/15/20 [Rx] Fenofibrate Nanocrystallized [Tricor] 145 mg PO DAILY 04/06/20 [History] Cyclobenzaprine [Flexeril] 10 mg PO HS 05/05/20 [History] Ibuprofen [Motrin] 800 mg PO HS 05/05/20 [History] Magnesium 400 mg PO DAILY 05/05/20 [History] Metoprolol Succinate [Toprol XL] 25 mg PO HS 05/05/20 [History] Zinc 50 mg PO DAILY 05/05/20 [History] [place] [facility] [facility] [place] [facility] [place] [facility] Patient Instructions/Handouts: *[facility] - (Anesthesia) Endoscopy Discharge Instructions, Upper Endoscopy (DC) Discharge Disposition: HOME SELF-CARE
[2020-05-11 09:44] VITALS: RESP 16
[2020-05-11 09:55] VITALS: BP 145/79; PULSE 85
== END 2020-05-11 10:05 | disposition home or self-care (01) ==
LOC: ORWHC2ENDO 07:50
PROVIDERS: ATTEND Surgery Plastic and Reconstructive Surgery
DX: K29.50 Unspecified chronic gastritis without bleeding (principal); K21.00 Gastro-esophageal reflux disease with esophagitis, without bleeding; K22.10 Ulcer of esophagus without bleeding; I10 Essential (primary) hypertension; E78.5 Hyperlipidemia, unspecified; F32.9 Major depressive disorder, single episode, unspecified; M19.90 Unspecified osteoarthritis, unspecified site; E66.01 Morbid (severe) obesity due to excess calories; Z79.82 Long term (current) use of aspirin; Z79.1 Long term (current) use of non-steroidal anti-inflammatories (NSAID); Z79.899 Other long term (current) drug therapy; Z88.1 Allergy status to other antibiotic agents; Z88.8 Allergy status to other drugs, medicaments and biological substances; Z87.891 Personal history of nicotine dependence; Z90.49 Acquired absence of other specified parts of digestive tract; Z98.890 Other specified postprocedural states; Z83.49 Family history of other endocrine, nutritional and metabolic diseases; Z80.3 Family history of malignant neoplasm of breast; Z68.39 Body mass index [BMI] 39.0-39.9, adult
CPT/HCPCS: 88305; 43239; J2704

== ENCOUNTER → 2020-05-16 | Outpatient (CLI) | payer OTHER ==
--- NOTE | 2020-05-16 08:50 | US ---
EXAMINATION TYPE: US duplex aorta DATE OF EXAM: 05/16/2020 COMPARISON: NONE CLINICAL HISTORY: 60-year-old female I70.8 Atherosclerosis of other arteries. TECHNIQUE: Multiple sonographic images of the abdominal aorta are obtained. FINDINGS: EXAM MEASUREMENTS: Abdominal Aorta: Proximal: 2.2 x 2.1 cm Mid: 2.0 x 2.0 cm Distal: 1.7 x 1.4 cm Bifurcation: 1.2 cm and 1.0 cm on the right and left sides, respectively. Incidental echogenic liver. IMPRESSION: 1. No sonographic evidence for AAA. 2. Incidental echogenic appearance to the liver suggesting hepatic steatosis.
== END ==
LOC: RADUSWWP 07:21
PROVIDERS: ATTEND Nurse Practitioner
DX: I70.8 Atherosclerosis of other arteries (principal)
CPT/HCPCS: 93979

== ENCOUNTER → 2020-06-01 | Outpatient (CLI) | payer OTHER ==
[2020-06-01 15:08] VITALS: BP 158/77; PULSE 101; RESP 16; TEMP 98; BMI 39.9
--- NOTE | 2020-06-01 15:24 | P.PN ---
Subjective Progress Note Date: 06/01/20 DATE OF SERVICE: 06/01/2020 CHIEF COMPLAINT: Morbid obesity HISTORY OF PRESENT ILLNESS: Vangie Spears is a 60-year-old female who comes with lifelong morbid obesity. She is looking into the gastric bypass. She has not started her supervised weight loss. She has completed her upper endoscopy. She has high cholesterol and triglycerides. Labs were reviewed. Plan for gastric bypass. 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 At height of 5 feet 4 inches, her ideal body weight is 144 pounds. Her highest weight is present 233 pounds, BMI 40.0. She comes in 233 pounds from 231 pounds, 2 months ago. She has gained 2 pounds in 2 months. Her body mass index is 39.7. She is 87 pounds overweight. PAST MEDICAL HISTORY: 1. Morbid obesity due to excess calories 2. Body mass index of 39.7, initial 3. Osteoarthritis of the knees. 4. Osteoarthritis of the lower back 5. Hypertensive heart disease. 6. Gastroesophageal reflux disease 7. Hyperlipidemia 8. Depressive disorder 9. Osteoarthritis of the hips PAST SURGICAL HISTORY: 1. Thyroid biopsy 2. Right breast lumpectomy 3. Tonsillectomy 4. Dilation and curettage 5. Cholecystectomy HOME MEDICATIONS: Home Medications Medication Instructions Recorded Confirmed Aspirin [Adult Low Dose Aspirin EC] 81 mg PO DAILY 10/24/15 04/06/20 Omeprazole 20 mg PO DAILY 10/24/15 04/06/20 Calcium Carbonate/Vitamin D3 1 cap PO DAILY 02/09/20 04/06/20 [Calcium 600-Vit D3 12.5 Mcg (500 Iu)] Cholecalciferol (Vitamin D3) 125 mcg PO DAILY 02/09/20 04/06/20 [Vitamin D3 (5000 Iu)] Magnesium Oxide [[place]] 500 mg PO DAILY 02/09/20 04/06/20 Multivit-Min/Iron/Folic/Lutein 1 tab PO DAILY 02/09/20 04/06/20 [Centrum Silver Women Tablet] Potassium Gluconate 99 mg PO DAILY 02/09/20 04/06/20 Pravastatin Sodium [Pravachol] 20 mg PO HS 02/09/20 04/06/20 Vitamin C/Biotin [Hair, Skin and 1 tab PO DAILY 02/09/20 04/06/20 Nails] hydroCHLOROthiazide [Hydrodiuril] 25 mg PO DAILY 02/09/20 04/06/20 traMADol HCL 50 mg PO TID PRN 02/09/20 04/06/20 Butalbital/Aspirin/Caffeine 1 - 2 tab PO Q8H PRN 04/06/20 04/06/20 [Rhbvih-Bkgwqrc-Kwohgkag 50-325-40 mg] Fenofibrate Nanocrystallized 145 mg PO DAILY 04/06/20 04/06/20 [Tricor] Previous Rx's Medication Instructions Recorded Venlafaxine HCl ER [Effexor XR] 75 mg PO DAILY #30 cap.er.24h 02/15/20 ALLERGIES: Allergies Allergy/AdvReac Type Severity Reaction Status Date / Time atorvastatin [From Lipitor] AdvReac Unknown Verified 04/06/20 17:01 cephalexin [From Keflex] AdvReac Unknown Verified 04/06/20 17:01 SOCIAL HISTORY: Past tobacco use. FAMILY HISTORY: No family history of ulcerative colitis disease or Crohn's disease. Family history of morbid obesity. No lupus in the family. No reports of stomach cancer. Aunt with stomach cancer. Her aunt had esophageal cancer. REVIEW OF ORGAN SYSTEMS: CONSTITUTIONAL: At height of 5 feet 4 inches, her ideal body weight is 144 pounds. She comes in 233 pounds. Her body mass index is 40.0. She is 89 pounds overweight. HEENT: Denies any active troubles with vision or hearing. Has troubles with swallowing. ENDOCRINE: Denies diabetes. No hypothyroidism. CARDIOVASCULAR: Denies reports of palpitations or heart attacks or chest pain. RESPIRATORY: Has daytime somnolence. Has troubles with sleep. Denies shortness of breath. GASTROINTESTINAL: Denies any bright red blood per rectum. No diarrhea. No constipation. Past colonoscopy MUSCULOSKELETAL: Has lower back pain and joint pain. Has osteoarthritis of the knees. NEURO: No headaches. No seizure disorders. PSYCH: Has depression. No suicidal ideation. RHEUMATOLOGIC: No lupus. No rheumatoid arthritis. HEMATOLOGIC: Denies any abnormal bleeding or bruising. No personal history of DVTs. SKIN: No rash. No skin cancer. PHYSICAL EXAM: VITAL SIGNS: Height 5 foot 4 inches, weight 233 pounds. BMI 40.0 Vital Signs Temp 98 F 06/01/20 15:05 Pulse 101 H 06/01/20 15:05 Resp 16 06/01/20 15:05 BP 158/77 06/01/20 15:05 Pulse Ox GENERAL: Well-developed in no acute distress. HEENT: No scleral icterus. Extraocular movements grossly intact. Hears conversational speech. No nasal drainage. NECK: Supple without lymphadenopathy. CHEST: Nonlabored respirations with equal bilateral excursions. CARDIOVASCULAR: Tachycardic. Distal 2+ pulses. ABDOMEN: Obese, soft, nontender, nondistended. MUSCULOSKELETAL: No clubbing, cyanosis. NEURO: No focal or lateralizing signs. Cranial nerves 2 through 12 grossly within normal limits. PSYCH: Appropriate affect. Alert and oriented to person, place and time. SKIN: Good skin turgor. Well perfused. LABS: AST and alkaline phosphatase is elevated. Triglycerides elevated over 780. Cholesterol elevated over 290. Vitamin D deficiency. Zinc is low. EKG: Normal sinus rhythm. EGD FINDINGS: Squamocolumnar junction 36 cm from the incisors. Diaphragmatic hiatus at 36 cm. Hill grade 1 lower esophageal valve. LA grade B erosive esophagitis. No active duodenitis. Chronic gastritis Final Pathologic Diagnosis GASTRIC ANTRUM, BIOPSY: Mild chronic gastritis. Helicobacter pylori organisms are not identified on routine H+E sections. ASSESSMENT: 1. Morbid obesity due to excess calories 2. Body mass index of 39.7, initial 3. Osteoarthritis of the knees. 4. Osteoarthritis of the lower back 5. Hypertensive heart disease. 6. Gastroesophageal reflux disease with esophagitis 7. Hyperlipidemia 8. Depressive disorder 9. Osteoarthritis of the hips 10. Hypertriglyceridemia 11. Hypercholesterolemia 12. Elevated liver enzymes 13. Vitamin D deficiency 14. Zinc deficiency 15. Chronic gastritis PLAN: 1. Recommend dietary surveillance and counseling was reviewed. 2. Recommend esophagram for dysphagia 3. Recommend cardiac risk assessment secondary to hypertensive heart disease. 4. She has high cholesterol and triglycerides and recommend pharmacological treatment. 5. Recommend follow-up upon completion of dietary assessment and cardiac assessment. Objective - Vital Signs Vital signs: Vital Signs Temp 98 F 06/01/20 15:05 Pulse 101 H 06/01/20 15:05 Resp 16 06/01/20 15:05 BP 158/77 06/01/20 15:05 Pulse Ox Intake & Output 05/31/20 06/01/20 06/01/20 18:59 06:59 18:59 Weight 105.687 kg
== END ==
LOC: BARWHC3 14:00
PROVIDERS: ATTEND Surgery Plastic and Reconstructive Surgery
DX: E66.01 Morbid (severe) obesity due to excess calories (principal); M47.816 Spondylosis without myelopathy or radiculopathy, lumbar region; I11.9 Hypertensive heart disease without heart failure; K21.00 Gastro-esophageal reflux disease with esophagitis, without bleeding; E78.5 Hyperlipidemia, unspecified; F32.9 Major depressive disorder, single episode, unspecified; M16.0 Bilateral primary osteoarthritis of hip; E78.00 Pure hypercholesterolemia, unspecified; E78.1 Pure hyperglyceridemia; E55.9 Vitamin D deficiency, unspecified; M17.0 Bilateral primary osteoarthritis of knee; R94.5 Abnormal results of liver function studies; E60 Dietary zinc deficiency; K29.50 Unspecified chronic gastritis without bleeding; Z68.41 Body mass index [BMI] 40.0-44.9, adult; Z79.82 Long term (current) use of aspirin; Z79.899 Other long term (current) drug therapy; Z87.891 Personal history of nicotine dependence; Z98.84 Bariatric surgery status
CPT/HCPCS: 99211

== ENCOUNTER → 2020-07-18 | Outpatient (CLI) | payer OTHER ==
[2020-07-18 14:10] VITALS: BMI 39.8
== END ==
LOC: BARWHC3 08:35
PROVIDERS: ATTEND Surgery Plastic and Reconstructive Surgery
DX: E66.01 Morbid (severe) obesity due to excess calories (principal); Z71.3 Dietary counseling and surveillance; Z68.39 Body mass index [BMI] 39.0-39.9, adult; Z87.891 Personal history of nicotine dependence
CPT/HCPCS: 97804

== ENCOUNTER → 2020-08-12 | Outpatient (CLI) | payer OTHER ==
--- NOTE | 2020-08-12 13:57 | FL ---
EXAMINATION TYPE: FL barium swallow DATE OF EXAM: 08/12/2020 CLINICAL HISTORY: Dysphasia swallowing pills or food for years. TECHNIQUE: A double contrast esophagram is performed utilizing air and barium. A total of 1 minute 13 seconds of fluoroscopic time was utilized during procedure. COMPARISON: None FINDINGS: The esophagus shows normal motility and emptying into the stomach. Minimal tertiary contrac tions of the mid to distal esophagus. Small sliding hiatal hernia. No definite evidence of gastroesop hageal reflux. Contrast freely flows from the stomach into the proximal duodenum. IMPRESSION: 1. Small sliding-type hiatal hernia. No definite evidence of gastroesophageal reflux. 2. Minimal tertiary contractions of the mid to distal esophagus.
== END | disposition home or self-care (01) ==
LOC: RADUSWWP 10:56
PROVIDERS: ATTEND Surgery Plastic and Reconstructive Surgery
DX: K44.9 Diaphragmatic hernia without obstruction or gangrene (principal)
CPT/HCPCS: 74220

== ENCOUNTER → 2020-10-05 | Outpatient (CLI) | payer OTHER ==
--- NOTE | 2020-10-05 15:07 | P.PN ---
Subjective Progress Note Date: 10/05/20 She wants the gastric bypass. NSQIP reviewed. Consent obtained. Alternative to bypass discussed.
[2020-10-05 15:15] VITALS: BP 156/92; PULSE 98; RESP 18; TEMP 98.4; BMI 39.1
== END | disposition home or self-care (01) ==
LOC: BARWHC3 14:04
PROVIDERS: ATTEND Surgery Plastic and Reconstructive Surgery
DX: Z98.84 Bariatric surgery status (principal)
CPT/HCPCS: 99211

== ENCOUNTER → 2020-10-05 | Outpatient (CLI) | payer OTHER ==
--- NOTE | 2020-10-05 14:39 | XR ---
EXAMINATION TYPE: XR chest 1V DATE OF EXAM: 10/05/2020 COMPARISON: 02/09/2020 HISTORY: Sleep apnea TECHNIQUE: Single frontal view of the chest is obtained. FINDINGS: There is no focal air space opacity, pleural effusion, or pneumothorax seen. The cardiac silhouette size is within normal limits. The osseous structures are intact. IMPRESSION: No acute process.
== END | disposition home or self-care (01) ==
LOC: RADXRMAIN 14:16
PROVIDERS: ATTEND Surgery Plastic and Reconstructive Surgery
DX: G47.30 Sleep apnea, unspecified (principal)
CPT/HCPCS: 71045

== ENCOUNTER → 2020-10-26 | Outpatient (CLI) | payer OTHER ==
[2020-10-26 14:15] LABS: Basophils % (A) 0 %; Eosinophils % (A) 0 %; HGB 13.5 gm/dL (11.4-16.0); Lymphocytes # (A) 2.5 k/uL (1.0-4.8); Lymphocytes % (A) 26 %; MCH 29.6 pg (25.0-35.0); MCHC 33.7 g/dL (31.0-37.0); MCV 88.1 fL (80.0-100.0); Mean Platelet Volume 7.4; Monocytes # (A) 0.4 k/uL (0-1.0); Monocytes % (A) 4 %; Neutrophils # (A) 6.4 k/uL (1.3-7.7); Neutrophils % (A) 68 %; Platelet Count 333 k/uL (150-450); RBC 4.54 m/uL (3.80-5.40); RDW 13.6 % (11.5-15.5); WBC 9.4 k/uL (3.8-10.6)
[2020-10-26 14:32] LABS: ALT 50 U/L (4-34); AST 63 U/L (14-36); African American GFR (CKD) >90 (>60 ml/min/1.73 sqM); Albumin 4.9 g/dL (3.5-5.0); Alkaline Phosphatase 89 U/L (38-126); Anion Gap 10 mmol/L; Blood Urea Nitrogen 25 mg/dL (7-17); Carbon Dioxide 31 mmol/L (22-30); Chloride 95 mmol/L (98-107); Glucose 120 mg/dL (74-99); Non-African American GFR(CKD) 78 (>60 ml/min/1.73 sqM); Potassium 3.5 mmol/L (3.5-5.1); Sodium 136 mmol/L (137-145); Total Bilirubin 0.3 mg/dL (0.2-1.3); Total Protein 7.8 g/dL (6.3-8.2)
== END | disposition home or self-care (01) ==
LOC: LABPAT 13:17
PROVIDERS: ATTEND Surgery Plastic and Reconstructive Surgery
DX: Z01.812 Encounter for preprocedural laboratory examination (principal)
CPT/HCPCS: 36415; 80053; 85025

== ENCOUNTER 2020-10-31 10:07 | Inpatient (IN) | payer OTHER ==
--- NOTE | 2020-10-31 05:47 | P.GSHP ---
History of Present Illness H&P Date: 10/31/20 CHIEF COMPLAINT: Morbid obesity HISTORY OF PRESENT ILLNESS: Vangie Spears is a 60-year-old female who comes with lifelong morbid obesity. She is looking into the gastric bypass. She has completed medical risk assessment including bariatric assessment and cardiac risk assessment. She has completed bariatric education. At height of 5 feet 4 inches, her ideal body weight is 144 pounds. Her highest weight is 233 pounds, BMI 40.0. PAST MEDICAL HISTORY: 1. Morbid obesity due to excess calories 2. Body mass index of 39.7, initial 3. Osteoarthritis of the knees. 4. Osteoarthritis of the lower back 5. Hypertensive heart disease. 6. Gastroesophageal reflux disease 7. Hyperlipidemia 8. Depressive disorder 9. Osteoarthritis of the hips PAST SURGICAL HISTORY: 1. Thyroid biopsy 2. Right breast lumpectomy 3. Tonsillectomy 4. Dilation and curettage 5. Cholecystectomy HOME MEDICATIONS: Home Medications Medication Instructions Recorded Confirmed Aspirin [Adult Low Dose Aspirin EC] 81 mg PO DAILY 10/24/15 04/06/20 Omeprazole 20 mg PO DAILY 10/24/15 04/06/20 Calcium Carbonate/Vitamin D3 1 cap PO DAILY 02/09/20 04/06/20 [Calcium 600-Vit D3 12.5 Mcg (500 Iu)] Cholecalciferol (Vitamin D3) 125 mcg PO DAILY 02/09/20 04/06/20 [Vitamin D3 (5000 Iu)] Magnesium Oxide [[place]] 500 mg PO DAILY 02/09/20 04/06/20 Multivit-Min/Iron/Folic/Lutein 1 tab PO DAILY 02/09/20 04/06/20 [Centrum Silver Women Tablet] Potassium Gluconate 99 mg PO DAILY 02/09/20 04/06/20 Pravastatin Sodium [Pravachol] 20 mg PO HS 02/09/20 04/06/20 Vitamin C/Biotin [Hair, Skin and 1 tab PO DAILY 02/09/20 04/06/20 Nails] hydroCHLOROthiazide [Hydrodiuril] 25 mg PO DAILY 02/09/20 04/06/20 traMADol HCL 50 mg PO TID PRN 02/09/20 04/06/20 Butalbital/Aspirin/Caffeine 1 - 2 tab PO Q8H PRN 04/06/20 04/06/20 [Rmgreb-Eelnlay-Kmqjtxgf 50-325-40 mg] Fenofibrate Nanocrystallized 145 mg PO DAILY 04/06/20 04/06/20 [Tricor] Previous Rx's Medication Instructions Recorded Venlafaxine HCl ER [Effexor XR] 75 mg PO DAILY #30 cap.er.24h 02/15/20 ALLERGIES: Allergies Allergy/AdvReac Type Severity Reaction Status Date / Time atorvastatin [From Lipitor] AdvReac Unknown Verified 04/06/20 17:01 cephalexin [From Keflex] AdvReac Unknown Verified 04/06/20 17:01 SOCIAL HISTORY: Past tobacco use. FAMILY HISTORY: No family history of ulcerative colitis disease or Crohn's disease. Family history of morbid obesity. No lupus in the family. No reports of stomach cancer. Aunt with stomach cancer. Her aunt had esophageal cancer. REVIEW OF ORGAN SYSTEMS: CONSTITUTIONAL: At height of 5 feet 4 inches, her ideal body weight is 144 pounds. She comes in 233 pounds. Her body mass index is 40.0. She is 89 pounds overweight. HEENT: Denies any active troubles with vision or hearing. Has troubles with swallowing. ENDOCRINE: Denies diabetes. No hypothyroidism. CARDIOVASCULAR: Denies reports of palpitations or heart attacks or chest pain. RESPIRATORY: Has daytime somnolence. Has troubles with sleep. Denies shortness of breath. GASTROINTESTINAL: Denies any bright red blood per rectum. No diarrhea. No constipation. Past colonoscopy MUSCULOSKELETAL: Has lower back pain and joint pain. Has osteoarthritis of the knees. NEURO: No headaches. No seizure disorders. PSYCH: Has depression. No suicidal ideation. RHEUMATOLOGIC: No lupus. No rheumatoid arthritis. HEMATOLOGIC: Denies any abnormal bleeding or bruising. No personal history of DVTs. SKIN: No rash. No skin cancer. PHYSICAL EXAM: VITAL SIGNS: Height 5 foot 4 inches, weight 233 pounds. BMI 40.0 GENERAL: Well-developed in no acute distress. HEENT: No scleral icterus. Extraocular movements grossly intact. Hears conversational speech. No nasal drainage. NECK: Supple without lymphadenopathy. CHEST: Nonlabored respirations with equal bilateral excursions. CARDIOVASCULAR: Distal 2+ pulses. ABDOMEN: Obese, soft, nontender, nondistended. MUSCULOSKELETAL: No clubbing, cyanosis. NEURO: No focal or lateralizing signs. Cranial nerves 2 through 12 grossly within normal limits. PSYCH: Appropriate affect. Alert and oriented to person, place and time. SKIN: Good skin turgor. Well perfused. ASSESSMENT: 1. Morbid obesity due to excess calories 2. Body mass index of 39.7, initial 3. Osteoarthritis of the knees. 4. Osteoarthritis of the lower back 5. Hypertensive heart disease. 6. Gastroesophageal reflux disease with esophagitis 7. Hyperlipidemia 8. Depressive disorder 9. Osteoarthritis of the hips 10. Hypertriglyceridemia 11. Hypercholesterolemia 12. Elevated liver enzymes 13. Vitamin D deficiency 14. Zinc deficiency 15. Chronic gastritis PLAN: 1. Bariatric options between a sleeve, band and a Wagner-en-Y gastric bypass were reviewed in detail. The patient elected for a gastric bypass. Robotic assisted approach described. 2. The [place] [facility] Data was also reviewed with benefits and risks as described. 3. An 8 page second-generation bariatric consent form was reviewed in detail including potential of bleeding, infection, leaks, adequate weight loss, nutritional deficiencies which the patient demonstrated understanding of the risks. 4. A 2 week high-protein low caloric 800 kcal diet described to address hepatomegaly. 5. Preoperative labs including complete metabolic panel and CBC with type and screen recommended. 6. DVT prophylaxis per [place] [facility]. 7. Antibiotic prophylaxis. 8. Inpatient hospitalization anticipated for more than 2 nights. 9. All questions and concerns were addressed with the patient. 10. Overall, patient has expressed understanding of bariatric care including postoperative diet and commitment of lifestyle. Patient should benefit from surgical intervention for correction of her morbid obesity. Past Medical History Past Medical History: GERD/Reflux, Hyperlipidemia, Hypertension, Osteoarthritis (OA) History of Any Multi-Drug Resistant Organisms: None Reported Past Surgical History: Breast Surgery, Cholecystectomy, Tonsillectomy Additional Past Surgical History / Comment(s): Right breast lumpectomy, thyroid biopsy, D&C. , EGD, COLONOSCOPY, LT BREAST NEEDLE BX, D & C Past Anesthesia/Blood Transfusion Reactions: No Reported Reaction Smoking Status: Former smoker - Past Family History Mother Family Medical History: Cancer Additional Family Medical History / Comment(s): Thyroid and breast cancer. Medications and Allergies Home Medications Medication Instructions Recorded Confirmed Type Aspirin [Adult Low Dose Aspirin EC] 81 mg PO DAILY 10/24/15 10/24/20 History Omeprazole 20 mg PO DAILY 10/24/15 10/24/20 History Calcium Carbonate/Vitamin D3 1 cap PO DAILY 02/09/20 10/24/20 History [Calcium 600-Vit D3 12.5 Mcg (500 Iu)] Cholecalciferol (Vitamin D3) 500 mcg PO DAILY 02/09/20 10/24/20 History [Vitamin D3 (5000 Iu)] Multivit-Min/Iron/Folic/Lutein 1 tab PO DAILY 02/09/20 10/24/20 History [Centrum Silver Women Tablet] Potassium Gluconate 99 mg PO DAILY 02/09/20 10/24/20 History Vitamin C/Biotin [Hair, Skin and 2 tab PO DAILY 02/09/20 10/24/20 History Nails] Venlafaxine HCl ER [Effexor XR] 75 mg PO DAILY #30 cap.er.24h 02/15/20 10/24/20 Rx Fenofibrate Nanocrystallized 145 mg PO DAILY 04/06/20 10/24/20 History [Tricor] Cyclobenzaprine [Flexeril] 10 mg PO HS 05/05/20 10/24/20 History Ibuprofen [Motrin] 800 mg PO HS 05/05/20 10/24/20 History Magnesium 400 mg PO DAILY 05/05/20 10/24/20 History Metoprolol Succinate [Toprol XL] 50 mg PO HS 05/05/20 10/24/20 History Zinc 50 mg PO DAILY 05/05/20 10/24/20 History Triamterene-Hctz 37.5-25Mg 1 cap PO DAILY 07/18/20 10/24/20 History [Dyazide 37.5-25 Capsule] Vitamin K2 100 mcg PO DAILY 07/18/20 10/24/20 History Rosuvastatin [Crestor] 20 mg PO HS 10/24/20 10/24/20 History Allergies Allergy/AdvReac Type Severity Reaction Status Date / Time atorvastatin [From Lipitor] AdvReac Severe Verified 10/24/20 14:55 Muscle Spasms cephalexin [From Keflex] AdvReac Yeast Verified 10/24/20 14:55 Infection
[~2020-10-31 10:07] MED LIST changes: +CHLORHEXIDINE GLUCONATE 15 ML CUP MUCOUS MEM PRN; +DEXAMETHASONE SOD PHOSPHATE 4 MG/ML 1 ML VIAL IV ONE; -LACTATED RINGERS 1,000 ML IV SCH; +ONDANSETRON 4 MG/2 ML VIAL IVP ONE; +PANTOPRAZOLE 40 MG/10 ML VIAL IVP PRN
[2020-10-31] MEDS: LACTATED RINGERS 1,000 ML IV SCH ×2 (11:00→17:40)
[2020-10-31 11:32] LABS: ALT 66 U/L (4-34); AST 98 U/L (14-36); African American GFR (CKD) >90 (>60 ml/min/1.73 sqM); Albumin 4.8 g/dL (3.5-5.0); Alkaline Phosphatase 89 U/L (38-126); Anion Gap 8 mmol/L; Blood Urea Nitrogen 14 mg/dL (7-17); Calcium 9.5 mg/dL (8.4-10.2); Carbon Dioxide 28 mmol/L (22-30); Chloride 104 mmol/L (98-107); Glucose 94 mg/dL (74-99); Non-African American GFR(CKD) >90 (>60 ml/min/1.73 sqM); Potassium 3.8 mmol/L (3.5-5.1); Sodium 140 mmol/L (137-145); Total Bilirubin 0.4 mg/dL (0.2-1.3); Total Protein 7.6 g/dL (6.3-8.2)
[2020-10-31] MEDS ORDERED: HYDROmorphone (PF) 1 MG/ML ONE (12:45)
[2020-10-31] MEDS ORDERED: PROPOFOL 10 MG/ML 20 ML VIAL IV ONE (12:45)
[2020-10-31] MEDS ORDERED: LIDOCAINE 1% INJ 10MG/ML (20 ML MDV) ONE (12:45)
[2020-10-31] MEDS ORDERED: ePHEDrine SULFATE/0.9% NACL/PF 50 MG/5 ML SYRINGE IV ONE (12:45)
[2020-10-31] MEDS ORDERED: SUCCINYLCHOLINE CHLORIDE 100 MG/5 ML SYR IV ONE (12:45)
[2020-10-31] MEDS ORDERED: GLYCOPYRROLATE 0.2 MG/ML 2 ML VIAL ONE (12:45)
[2020-10-31] MEDS ORDERED: NEOSTIGMINE 1 MG/ML 10 ML VIAL ONE (12:45)
[2020-10-31] MEDS ORDERED: ROCURONIUM 10 MG/ML (5 ML VIAL) IV ONE (12:45)
[2020-10-31] MEDS ORDERED: fentaNYL (PF) 50 MCG/ML 2 ML AMP ONE (12:45)
[2020-10-31] MEDS ORDERED: MIDAZOLAM 2 MG/2 ML VIAL ONE (12:45)
[2020-10-31] MEDS ORDERED: LIDOCAINE 2%-EPI 1:100,000 20 ML VIAL SQ ONE (13:42)
[2020-10-31] MEDS ORDERED: LACTATED RINGERS 1,000 ML IV ONE (14:06)
[2020-10-31] MEDS ORDERED: diphenhydrAMINE 50 MG/ML 1 ML VIAL IVP PRN (16:14)
[2020-10-31] MEDS ORDERED: HYDROmorphone 1 MG/ML 1 ML SYRINGE IVP PRN (16:14)
[2020-10-31] MEDS ORDERED: NALOXONE 0.4 MG/ML 1 ML VIAL IV PRN (16:14)
--- NOTE | 2020-10-31 16:25 | P.OP ---
Date of Procedure: 10/31/20 Description of Procedure: SURGEON: ADOLPH LO MD PREOPERATIVE DIAGNOSES: 1. Morbid obesity due to excess calories 2. Body mass index of 40.0, initial 3. Osteoarthritis of the knees. 4. Osteoarthritis of the lower back 5. Hypertensive heart disease. 6. Gastroesophageal reflux disease with esophagitis 7. Hyperlipidemia 8. Depressive disorder 9. Osteoarthritis of the hips 10. Hypertriglyceridemia 11. Hypercholesterolemia 12. Elevated liver enzymes 13. Vitamin D deficiency 14. Zinc deficiency 15. Chronic gastritis POSTOPERATIVE DIAGNOSES: 1. Morbid obesity due to excess calories 2. Body mass index of 40.0, initial 3. Osteoarthritis of the knees. 4. Osteoarthritis of the lower back 5. Hypertensive heart disease 6. Gastroesophageal reflux disease with esophagitis 7. Hyperlipidemia 8. Depressive disorder 9. Osteoarthritis of the hips 10. Hypertriglyceridemia 11. Hypercholesterolemia 12. Elevated liver enzymes 13. Vitamin D deficiency 14. Zinc deficiency 15. Chronic gastritis OPERATION: 1. Robotic assisted da Dank Xi laparoscopic Diana-en-Y gastric bypass, 100 cm antecolic antegastric Idana limb, with 25 mm EEA. 2. Intraoperative esophagogastrojejunoscopy. ANESTHESIA: GETA and local ESTIMATED BLOOD LOSS: 20 mL SPECIMENS REMOVED: None. COMPLICATIONS: NONE. Operative Findings: 1. Biliopancreatic limb 60 cm 2. Bypass performed using 100 cm diana limb secondary to avoid increased tension at 150 cm. 3. Jejunojejunostomy and Beckford's defect closed by her intra-abdominal fat. 4. Leak test negative with gastrojejunal anastomosis patent and hemostatic. 5. Reinforcement sutures were placed along the gastrojejunal anastomosis at 9 :00, 12:00 and 3:00 6. No fatty liver disease 7. Thoracic length 13 cm 8. Sharp liver edge consistent with 2-week protein diet. INDICATIONS: Vangie Spears is a 60-year-old female who comes with lifelong morbid obesity. She is looking into the gastric bypass. She has completed medical risk assessment including bariatric assessment and cardiac risk assessment. She has completed bariatric education. At height of 5 feet 4 inches, her ideal body weight is 144 pounds. Her highest weight is 233 pounds, BMI 40.0. She had lost 17 pounds with medical supervised weight loss and comes in 216 pounds. A second-generation bariatric consent form was described in detail including the possibility of protein malnutrition, leaks, gastrojejunal stricture, venous thrombosis, need for further surgery for which she demonstrated understanding. Benefits and risks of the procedure were described at length. Informed consent was obtained. DESCRIPTION: The patient was brought into the operating room theater. She was placed supine. She had received Lovenox subcutaneously for DVT prophylaxis. Additionally she Peridex oral solution as an oral decontaminant was placed per anesthesia. After general induction, the abdomen was prepped and draped in standard sterile fashion. Ioban draping was placed along the abdomen. Urbina catheter was placed A robotic da Dank Xi system was prepped and primed. Incisions were proposed at 15 cm from the xiphoid. Proposed port sites were marked with indelible marker along the anterior axillary line bilaterally, mid clavicular line bilaterally with each port marked 10 cm from each other. The robotic stapler port was marked for the right midclavicular line including along the left midclavicular line. A 5 mm 0 degrees laparoscopic trocar entry was performed along the left upper quadrant. The abdomen was insufflated to 15 mmHg pressure, which she tolerated well. Diagnostic laparoscopy demonstrated no injury to bowel, viscera, or mesentery. The liver edge was sharp consistent with her 2-week protein diet. An 8 mm camera port was placed left lateral to the umbilicus at the epigastrium, 15 cm distal to the xiphoid. Next, 12-mm robot stapler port was placed along the right mid abdomen. An 12 mm port was exchanged along the left upper quadrant. An 8 mm port was placed on the left lateral abdominal wall under direct visualization Please note that the ports were placed 18 to 20 cm away from the target anatomy of the stomach. Care was taken to check that each robotic arm was safely away from collision with the bed or the patient. At the epigastrium, a medium sized Zoey liver retractor was placed under direct visualization with the Iron Trimmer Sawyer placed under the right shoulder of the patient. The patient was repositioned in reverse Trendelenburg position at 21-degrees after lowering the bed. The robot was docked over the patient. Using grasper for arm 3, a grasper for arm 1, including vessel sealer for arm 4, the robotic system was docked and primed as described. Instruments were interchanged by the reference library assistant including endoscissors, the needle batch mixing truck driver, and stapler. I had sat at the console. Next, the transverse mesocolon was reflected into the upper abdomen after dividing the mesentery and preparing for the jejunojejunostomy portion of the case. The ligament of Treitz was identified and measured 60 cm antegrade and marked using 3-0 Silk. The jejunum was divided at the 60 cm point using 60-mm blue loads above the suture measurement. The biliopancreatic limb was held in place. The Diana limb was measured 100 cm in an antegrade fashion to avoid tension along the proposed gastrojejunal anastomosis. At 100 cm along the anti-mesenteric border of the Diana limb, a jejunojejunostomy was proposed whereby enterotomies were created along the biliopancreatic limb including the Diana limb using a Bovie cautery. A stay suture of 3-0 Slik was placed to align and create the anastomosis. The enterotomies along the anti- mesenteric borders were created followed by unidirectional fire from the patient's right side using 60 mm blue loads Smart technology robotic stapler. The jejunojejunostomy was found to be hemostatic. The enterotomy was closed after horizontal mattress stitch of 3-0 silk used to elevate the enterotomy followed by closure with the robotic stapler blue load. The jejunal limb was temporarily tacked along the left upper quadrant. Attention was now brought to the creation of the gastrojejunostomy. Along the lesser curvature of the stomach, dissection was made along the retrogastric space to allow first firing of the robotic staple. Green loads of 60 mm staplers were used to divide the stomach to create the gastric pouch. The patient was then prepared for placement of a Orvil. The patient was Mallampati 2. A 25-mm Orvil was selected for placement by the nurse shrimping boat captain. The Orvil tubing was placed anterior to the staple line of the gastric pouch and brought out through the left inferior lateral port. I re-scrubbed into the case. The robotic arms were temporarily undocked. The Orvil was then carefully and successfully navigated with the help of the nurse shrimping boat captain into the gastric pouch. The sutures were identified and divided. The tubing was from the 25 mm anvil. As the Orvil had been placed, the blind jejunal limb was brought proximally into the upper abdomen. No torsion was found upon the Diana limb. No tension was identified as the limb was brought along the upper abdomen. The blind jejunal limb was previously opened using endo-scissors with cautery. The 25-mm EEA stapler was brought through the left anterior lateral port site from the left side. The EEA stapler was brought through the open jejunal limb and its needle was deployed at the antimesenteric border where the anvil were mated for approximately 1 minute upon firing. The stapler was removed after irrigating the shaft of the instrument with warm normal saline. Donuts were found to be intact and on both sides. The da Dank Xi robot arms were then re-docked. I sat at the console. The open jejunal limb defect was closed using 60 mm blue loads after releasing any tension from the blind jejunal limb. Care was taken to avoid any long blind limb to avoid candycane syndrome. Reinforcement sutures were placed along the gastrojejunal anastomosis and placed along the 9:00, 12 o'clock and 3 o'clock position using 3-0 Vicryl. The jejunojejunostomy and Beckford's defect were covered by her intra-abdominal fat. I then went to the head of the bed to perform the esophagogastrojejunoscopy and a leak test. An Olympus gastroscope was passed alongthe posterior oropharynx which was unremarkable for any injury to the vocal cords. The scope was passed down to the proximal portion of the pouch, whereby no active bleeding was encountered. Excellent visualization of the gastrojejunostomy anastomosis, including the Diana limb was encountered with endoscopic image obtained. The anastomosis was found to be patent. The gastrointestinal tract was desufflated. No evidence of intraoperative leak was encountered as the gastric pouch and anastomosis were submerged under normal saline solution. The robot was then undocked. I then went back to the bedside of the patient, whereby with coordinated effort of the reference library assistant, irrigation was aspirated from the upper abdominal cavity. Tisseel was placed circumferentially over the anastomosis of the gastrojejunostomy. The fascial defect of the EEA stapler was closed using Raj Ayala and 0 Vicryl. All instruments and pneumoperitoneum were evacuated from the abdominal cavity. The port correlating with the EEA stapler device was cleansed with normal saline solution and hydrogen peroxide. The rest of incisions were reapproximated using 4-0 Monocryl in an interrupted subcuticular fashion. Local anesthetic was infiltrated along the skin for postop analgesia. Liquid glue was applied to the skin. OptiFoam dressing was placed along the EEA stapler site. At the end of the procedure, needle, sponge and instrument count had been verified correct by the instructor adjunct surgical technician. The patient had tolerated the procedure well and was extubated and taken to the postanesthesia unit in stable condition. Intraoperative findings were described to the patient's family who were very pleased with the level of care.
[2020-10-31] MEDS: HYDROmorphone 0.5 MG/0.5 ML SYRINGE IVP ONE ×2 (16:58→17:39)
[2020-10-31] MEDS: METOPROLOL SUCCINATE (ER) 50 MG TAB.ER.24H PO SCH (19:57)
[2020-10-31] MEDS: ACETAMINOPHEN IV (For NPO) 1,000 MG in EMPTY BAG 1 BAG IVPB SCH (21:00)
[2020-10-31] MEDS: ONDANSETRON 4 MG/2 ML VIAL IVP SCH ×2 (21:00→23:40)
[2020-10-31] MEDS: SIMETHICONE 40 MG/0.6 ML DROPS 2,000 MG/30 ML BOTTLE PO SCH (21:01)
[2020-10-31] MEDS: HYOSCYAMINE ORAL DROPS 1.875 MG/15 ML BOTTLE PO SCH (21:01)
[2020-10-31] MEDS: ALBUTEROL NEBULIZED 2.5 MG/3 ML INHALATION SCH (21:02)
[2020-11-01] MEDS: 0.9% NACL WITH KCL 20 MEQ/L 1,000 ML IV SCH ×2 (02:01→02:24)
[2020-11-01] MEDS: HYOSCYAMINE ORAL DROPS 1.875 MG/15 ML BOTTLE PO SCH ×4 (02:02→21:26)
[2020-11-01] MEDS: SIMETHICONE 40 MG/0.6 ML DROPS 2,000 MG/30 ML BOTTLE PO SCH ×4 (02:02→21:26)
[2020-11-01] MEDS: ACETAMINOPHEN IV (For NPO) 1,000 MG in EMPTY BAG 1 BAG IVPB SCH ×3 (02:02→15:25)
[2020-11-01] MEDS: ONDANSETRON 4 MG/2 ML VIAL IVP SCH ×3 (06:06→18:10)
[2020-11-01] MEDS ORDERED: ENOXAPARIN 40 MG/0.4 ML SYRINGE SQ PRN (07:00)
[2020-11-01] MEDS: ENOXAPARIN 40 MG/0.4 ML SYRINGE SQ SCH (07:30)
[2020-11-01] MEDS: PANTOPRAZOLE 40 MG/10 ML VIAL IV SCH (07:30)
[2020-11-01] MEDS: ALBUTEROL NEBULIZED 2.5 MG/3 ML INHALATION SCH ×3 (08:58→21:05)
[2020-11-01] MEDS: 1: MVI, ADULT NO.4 WITH VIT K 10 ML, THIAMINE 100 MG, FOLIC ACID 1 MG, POTASSIUM CHLORID IV SCH ×12 (09:02→21:26)
[2020-11-01 10:55] LABS: Basophils # (A) 0.01 X 10*3/uL (0.00-0.10); Basophils % (A) 0.1 %; Eosinophils # (A) 0.01 X 10*3/uL (0.04-0.35); Eosinophils % (A) 0.1 %; HCT 37.3 % (37.2-46.3); Lymphocytes # (A) 1.45 X 10*3/uL (0.90-5.00); Lymphocytes % (A) 18.1 %; MCHC 32.2 g/dL (32.0-37.0); MCV 90.1 fL (80.0-97.0); Monocytes # (A) 0.66 X 10*3/uL (0.20-1.00); Monocytes % (A) 8.3 %; Neutrophils # (A) 5.84 X 10*3/uL (1.80-7.70); Platelet Count 232 X 10*3/uL (140-440); RBC 4.14 X 10*6/uL (4.10-5.20); RDW 13.4 % (11.5-14.5)
[2020-11-01 12:00] LABS: African American GFR (CKD) 94.2 (60.0-200.0); Anion Gap 8.2 mmol/L (4.00-12.00); Calcium 8.5 mg/dL (8.7-10.3); Carbon Dioxide 28.8 mmol/L (21.6-31.8); Magnesium 1.8 mg/dL (1.5-2.4); Non-African American GFR(CKD) 81.3 (60.0-200.0); Phosphorus 2.6 mg/dL (2.4-5.1); Potassium 4.2 mmol/L (3.5-5.5)
[2020-11-01 13:44] VITALS: BMI 36.6
[2020-11-01] MEDS ORDERED: ACETAMINOPHEN ORAL SUSP 160 MG/5 ML CUP PO ONE (15:15)
[2020-11-01] MEDS: LACTATED RINGERS 1,000 ML IV SCH (18:09)
[2020-11-01] MEDS ORDERED: ACETAMINOPHEN ORAL SUSP 160 MG/5 ML CUP PO PRN ×2 (20:16→22:00)
[2020-11-01] MEDS: METOPROLOL SUCCINATE (ER) 50 MG TAB.ER.24H PO SCH (23:41)
[2020-11-02] MEDS: ONDANSETRON 4 MG/2 ML VIAL IVP SCH ×3 (01:19→07:13)
[2020-11-02] MEDS: SIMETHICONE 40 MG/0.6 ML DROPS 2,000 MG/30 ML BOTTLE PO SCH ×3 (04:29→13:21)
[2020-11-02] MEDS: HYOSCYAMINE ORAL DROPS 1.875 MG/15 ML BOTTLE PO SCH ×3 (04:29→13:22)
[2020-11-02] MEDS: 1: MVI, ADULT NO.4 WITH VIT K 10 ML, THIAMINE 100 MG, FOLIC ACID 1 MG, POTASSIUM CHLORID IV SCH ×12 (04:30→14:48)
[2020-11-02] MEDS: ENOXAPARIN 40 MG/0.4 ML SYRINGE SQ SCH (07:08)
[2020-11-02] MEDS: PANTOPRAZOLE 40 MG/10 ML VIAL IV SCH (07:12)
[2020-11-02 07:25] VITALS: RESP 16
[2020-11-02] MEDS ORDERED: bisacodyL 5 MG TABLET.DR PO PRN (08:00)
[2020-11-02] MEDS: ALBUTEROL NEBULIZED 2.5 MG/3 ML INHALATION SCH ×2 (08:50→11:43)
[2020-11-02] MEDS ORDERED: PIPERACILLIN-TAZOBACTAM 3.375 GM in SODIUM CHLORIDE 0.9% 100 ML IVPB SCH (09:45)
[2020-11-02] MEDS ORDERED: ACETAMINOPHEN ORAL SUSP (PEDS) 3,840 MG/120 ML BOTTLE PO PRN (10:00)
--- NOTE | 2020-11-02 10:24 | XR ---
EXAMINATION TYPE: XR chest 1V portable DATE OF EXAM: 11/02/2020 HISTORY: Shortness of breath. COMPARISON: 10/05/2020 TECHNIQUE: Single view of the chest is submitted. FINDINGS: Demonstrated are scattered senescent parenchymal change. There is no evidence for focal infiltrate. The heart is stable. Hilar and mediastinal structures are within normal limits. Degenerative changes are seen of the dorsal spine. IMPRESSION: 1. Chronic changes without evidence for acute pulmonary disease.
[2020-11-02 10:41] LABS: Basophils % (A) 0 %; Eosinophils # (A) 0.1 k/uL (0-0.7); Eosinophils % (A) 1 %; HCT 35.8 % (34.0-46.0); HGB 12.1 gm/dL (11.4-16.0); Lymphocytes # (A) 1.5 k/uL (1.0-4.8); Lymphocytes % (A) 18 %; MCH 30.2 pg (25.0-35.0); MCHC 33.7 g/dL (31.0-37.0); MCV 89.6 fL (80.0-100.0); Mean Platelet Volume 7.3; Monocytes # (A) 0.4 k/uL (0-1.0); Monocytes % (A) 4 %; Neutrophils # (A) 6.6 k/uL (1.3-7.7); Neutrophils % (A) 76 %; Platelet Count 212 k/uL (150-450); RDW 13.8 % (11.5-15.5); WBC 8.6 k/uL (3.8-10.6)
[2020-11-02 13:17] VITALS: BP 123/76; PULSE 83; TEMP 97.7
--- NOTE | 2020-11-02 21:23 | P.PN ---
Progress Note - Text Progress Note Date: 11/01/20 Notified by RN that patient had initially been doing well earlier and was seeking discharge following loss of IV line. Patient then developed abdominal pain. Continued hospitalization advised.
--- NOTE | 2020-11-02 21:30 | P.PN ---
Subjective Progress Note Date: 11/02/20 CHIEF COMPLAINT: Morbid obesity HISTORY OF PRESENT ILLNESS: Vangie Spears is a 60-year-old female status post gastric bypass. Overnight, she had temperature over 100.0. No reports of nausea and vomiting. Abdominal pain is controlled. REVIEW OF ORGAN SYSTEMS: No nausea and vomiting. No chest pain. No dyspnea on exertion. PHYSICAL EXAM: VITAL SIGNS: Reviewed. GENERAL: Well-developed in no acute distress. HEENT: No scleral icterus. Extraocular movements grossly intact. Hears conversational speech. No nasal drainage. NECK: Supple without lymphadenopathy. CHEST: Nonlabored respirations with equal bilateral excursions. CARDIOVASCULAR: Distal 2+ pulses. ABDOMEN: Incisions intact. No peritonitis. MUSCULOSKELETAL: No clubbing, cyanosis. NEURO: No focal or lateralizing signs. Cranial nerves 2 through 12 grossly within normal limits. PSYCH: Appropriate affect. Alert and oriented to person, place and time. SKIN: Good skin turgor. Well perfused. LABS: Reviewed, prior CBC within normal limits. ASSESSMENT: 1. Morbid obesity due to excess calories 2. Body mass index of 40.0 3. Osteoarthritis of the knees. 4. Osteoarthritis of the lower back 5. Hypertensive heart disease. 6. Gastroesophageal reflux disease with esophagitis 7. Hyperlipidemia 8. Depressive disorder 9. Osteoarthritis of the hips 10. Hypertriglyceridemia 11. Hypercholesterolemia 12. Elevated liver enzymes 13. Vitamin D deficiency 14. Zinc deficiency 15. Chronic gastritis 16. Status post gastric bypass PLAN: 1. Recommend chest x-ray for elevated temperature 2. Recommend use of incentive spirometer 3. Discharge pending results of repeat CBC Objective - Vital Signs Vital signs: Vital Signs Temp 99.2 F 11/02/20 07:24 Pulse 95 11/02/20 07:24 Resp 16 11/02/20 07:24 BP 115/66 11/02/20 07:24 Pulse Ox 96 11/02/20 08:49 Intake & Output 11/01/20 11/02/20 11/02/20 18:59 06:59 18:59 Intake Total 240 Balance 240 Weight 98.2 kg Intake: Oral 240 Other: Voiding Method Toilet Toilet Toilet - Labs CBC & Chem 7: 11/02/20 10:25 11/01/20 08:02 Labs: Abnormal Lab Results - Last 24 Hours (Table) 11/01/20 11/01/20 Range/Units 08:02 08:02 Eosinophils # 0.01 L (0.04-0.35) X 10*3/uL Calcium 8.5 L (8.7-10.3) mg/dL
--- NOTE | 2020-11-02 21:45 | P.DS ---
Providers Date of admission: 10/31/20 10:07 Expected date of discharge: 11/02/20 Attending physician: Amber Bowen Primary care physician: Roseann Veras - Discharge Diagnosis(es) (1) Morbid obesity due to excess calories Status: Acute (2) BMI 40.0-44.9, adult Status: Acute (3) Hypertensive heart disease Status: Acute (4) Osteoarthritis of knees, bilateral Status: Acute Hospital Course: POSTOPERATIVE DIAGNOSES: 1. Morbid obesity due to excess calories 2. Body mass index of 40.0, initial 3. Osteoarthritis of the knees. 4. Osteoarthritis of the lower back 5. Hypertensive heart disease 6. Gastroesophageal reflux disease with esophagitis 7. Hyperlipidemia 8. Depressive disorder 9. Osteoarthritis of the hips 10. Hypertriglyceridemia 11. Hypercholesterolemia 12. Elevated liver enzymes 13. Vitamin D deficiency 14. Zinc deficiency 15. Chronic gastritis 16. Status post gastric bypass COURSE: Vangie Spears is a 60-year-old female who comes with lifelong morbid obesity. She completed medical supervised weight loss. She underwent robotic gastric bypass. Postoperatively, she was tolerating diet. She denied nausea and vomiting. Post-bariatric instructions were reviewed in detail. Patient was stable for discharge. Procedures: OPERATION: 1. Robotic assisted da Dank Xi laparoscopic Diana-en-Y gastric bypass, 100 cm antecolic antegastric Diana limb, with 25 mm EEA. 2. Intraoperative esophagogastrojejunoscopy. ANESTHESIA: GETA and local ESTIMATED BLOOD LOSS: 20 mL SPECIMENS REMOVED: None. COMPLICATIONS: NONE. Operative Findings: 1. Biliopancreatic limb 60 cm 2. Bypass performed using 100 cm diana limb secondary to avoid increased tension at 150 cm. 3. Jejunojejunostomy and Beckford's defect closed by her intra-abdominal fat. 4. Leak test negative with gastrojejunal anastomosis patent and hemostatic. 5. Reinforcement sutures were placed along the gastrojejunal anastomosis at 9:00, 12:00 and 3:00 6. No fatty liver disease 7. Thoracic length 13 cm 8. Sharp liver edge consistent with 2-week protein diet. Patient Condition at Discharge: Stable Plan - Discharge Summary Discharge Rx Participant: Yes New Discharge Prescriptions: New Simethicone 40 mg/0.6 ml Drops [Mylicon Drops] 40 mg PO PCHS PRN #30 ml PRN Reason: Gas bisacodyL [Dulcolax] 5 mg PO DAILY PRN #10 tablet. PRRhys Reason: Constipation Omeprazole [PriLOSEC] 40 mg PO DAILY #30 capsule. Ondansetron Odt [Zofran Odt] 4 mg PO Q8HR PRN #9 tab PRN Reason: Nausea Acetaminophen Tab [Tylenol Tab] 1,000 mg PO Q6HR PRN #30 tablet PRN Reason: Pain Continue Potassium Gluconate 99 mg PO DAILY Venlafaxine HCl ER [Effexor XR] 75 mg PO DAILY #30 cap.er.24h Magnesium 400 mg PO DAILY Metoprolol Succinate [Toprol XL] 50 mg PO HS Cyclobenzaprine [Flexeril] 10 mg PO HS Discontinued Omeprazole 20 mg PO DAILY Aspirin [Adult Low Dose Aspirin EC] 81 mg PO DAILY Vitamin C/Biotin [Hair, Skin and Nails] 2 tab PO DAILY Cholecalciferol (Vitamin D3) [Vitamin D3 (5000 Iu)] 500 mcg PO DAILY Calcium Carbonate/Vitamin D3 [Calcium 600-Vit D3 12.5 Mcg (500 Iu)] 1 cap PO DAILY Multivit-Min/Iron/Folic/Lutein [Centrum Silver Women Tablet] 1 tab PO DAILY Fenofibrate Nanocrystallized [Tricor] 145 mg PO DAILY Ibuprofen [Motrin] 800 mg PO HS Zinc 50 mg PO DAILY Rosuvastatin [Crestor] 20 mg PO HS Triamterene-Hctz 37.5-25Mg [Dyazide 37.5-25 Capsule] 1 cap PO DAILY Vitamin K2 100 mcg PO DAILY Discharge Medication List Potassium Gluconate 99 mg PO DAILY 02/09/20 [History] Venlafaxine HCl ER [Effexor XR] 75 mg PO DAILY #30 cap.er.24h 02/15/20 [Rx] Cyclobenzaprine [Flexeril] 10 mg PO HS 05/05/20 [History] Magnesium 400 mg PO DAILY 05/05/20 [History] Metoprolol Succinate [Toprol XL] 50 mg PO HS 05/05/20 [History] Acetaminophen Tab [Tylenol Tab] 1,000 mg PO Q6HR PRN #30 tablet 11/02/20 [Rx] Omeprazole [PriLOSEC] 40 mg PO DAILY #30 capsule. 11/02/20 [Rx] Ondansetron Odt [Zofran Odt] 4 mg PO Q8HR PRN #9 tab 11/02/20 [Rx] Simethicone 40 mg/0.6 ml Drops [Mylicon Drops] 40 mg PO PCHS PRN #30 ml 11/02/20 [Rx] bisacodyL [Dulcolax] 5 mg PO DAILY PRN #10 tablet. 11/02/20 [Rx] Follow up Appointment(s)/Referral(s): Amber Bowen MD [STAFF PHYSICIAN] - 11/04/20 9:00 am Patient Instructions/Handouts: How to Use an Incentive Spirometer (DC), Nutrition after Bariatric Surgery (DC), Diana-en-Y Gastric Bypass (DC) Activity/Diet/Wound Care/Special Instructions: Continue to use incentive spirometry to prevent pneumonias. Please continue to ambulate at home to prevent blood clots in legs. Please notify your surgeon if you develop nausea and vomiting including new onset of abdominal pain. No lifting over 4 pounds in 4 weeks, December 01. Follow-up at the bariatric center. May shower. No soaking in bath tubs, until November 14 Drink 64 oz of fluid daily. Notify bariatric center for temp over 101.0, increased pain, drainage from incisions. No straws or carbonated beverages. Liquid diet only. Sugar content should be less than 6 g to avoid dumping syndrome. Take MOM for constipation. CRUSH, OPEN, OR CUT TABLETS LARGER THAN A SIZE OF A TIC TAC Discharge Disposition: HOME SELF-CARE
== END 2020-11-02 16:00 | disposition home or self-care (01) | DRG 621 ==
LOC: 2ORMAIN 10:07 → 4SSUR 18:33
PROVIDERS: ADMIT Surgery Plastic and Reconstructive Surgery; ATTEND Surgery Plastic and Reconstructive Surgery
PROC: 0DQV4ZZ Repair Mesentery, Percutaneous Endoscopic Approach (ICD-10-PCS; principal; 2020-10-31 11:35)
PROC: 8E0W4CZ Robotic Assisted Procedure of Trunk Region, Percutaneous Endoscopic Approach (ICD-10-PCS; principal; 2020-10-31 11:35)
PROC: 0DJ08ZZ Inspection of Upper Intestinal Tract, Via Natural or Artificial Opening Endoscopic (ICD-10-PCS; principal; 2020-10-31 11:35)
PROC: 0D164ZA Bypass Stomach to Jejunum, Percutaneous Endoscopic Approach (ICD-10-PCS; principal; 2020-10-31 11:35)
DX: E66.01 Morbid (severe) obesity due to excess calories (principal); Z68.36 Body mass index [BMI] 36.0-36.9, adult; I11.9 Hypertensive heart disease without heart failure; R16.0 Hepatomegaly, not elsewhere classified; E55.9 Vitamin D deficiency, unspecified; E78.00 Pure hypercholesterolemia, unspecified; E78.5 Hyperlipidemia, unspecified; F32.9 Major depressive disorder, single episode, unspecified; M17.0 Bilateral primary osteoarthritis of knee; M16.0 Bilateral primary osteoarthritis of hip; M47.9 Spondylosis, unspecified; K29.50 Unspecified chronic gastritis without bleeding; K21.00 Gastro-esophageal reflux disease with esophagitis, without bleeding; E78.1 Pure hyperglyceridemia; E60 Dietary zinc deficiency; Z79.1 Long term (current) use of non-steroidal anti-inflammatories (NSAID); Z79.82 Long term (current) use of aspirin; Z79.899 Other long term (current) drug therapy; Z90.49 Acquired absence of other specified parts of digestive tract; Z87.19 Personal history of other diseases of the digestive system; Z87.2 Personal history of diseases of the skin and subcutaneous tissue; Z87.891 Personal history of nicotine dependence; Z98.890 Other specified postprocedural states; Z71.3 Dietary counseling and surveillance; Z88.1 Allergy status to other antibiotic agents; Z88.8 Allergy status to other drugs, medicaments and biological substances; Z83.49 Family history of other endocrine, nutritional and metabolic diseases; Z80.0 Family history of malignant neoplasm of digestive organs; Z80.3 Family history of malignant neoplasm of breast; Z80.8 Family history of malignant neoplasm of other organs or systems
CPT/HCPCS: 71045; 80051; 80053; 82310; 82565; 83735; 84100; 84520; 85025; 86850; 86900; 86901; 94760; 94762

== ENCOUNTER → 2020-11-16 | Outpatient (CLI) | payer OTHER ==
[2020-11-16 14:59] VITALS: BP 127/80; PULSE 67; RESP 18; TEMP 98.1; BMI 35.3
--- NOTE | 2020-11-16 15:08 | P.BASOAP ---
Subjective Progress Note Date: 11/16/20 She reports constipation. She used to talk Metamucil for constipation. She can take milk of magnesia. She is taking protein shakes of premier protein 60 grams daily. Incisions are okay. She met with the dietitian. Objective - Vital Signs Vital signs: Vital Signs Temp 98.1 F 11/16/20 14:34 Pulse 67 11/16/20 14:34 Resp 18 11/16/20 14:34 BP 127/80 11/16/20 14:34 Pulse Ox Intake & Output 11/15/20 11/16/20 11/16/20 18:59 06:59 18:59 Weight 93.44 kg Assessment/Plan Plan: Date: 11/16/20 Initial Weight: 104.78 kg Initial BMI: 39.6 Current Weight: 93.44 kg Current BMI: 35.3 Type of Surgery: Total Volume in Band: Previous Volume: Volume Removed: Volume Added: Band Size:
== END ==
LOC: BARWHC3 14:21
PROVIDERS: ATTEND Surgery Plastic and Reconstructive Surgery
DX: E66.01 Morbid (severe) obesity due to excess calories (principal); Z71.3 Dietary counseling and surveillance; Z68.35 Body mass index [BMI] 35.0-35.9, adult; Z88.8 Allergy status to other drugs, medicaments and biological substances; Z88.1 Allergy status to other antibiotic agents; Z87.891 Personal history of nicotine dependence
CPT/HCPCS: 97803; G0463; 99211

== ENCOUNTER → 2021-01-10 | Outpatient (CLI) | payer OTHER ==
[2021-01-10 15:50] LABS: Partial Thromboplastin Time 25.8 sec (22.0-30.0); Prothrombin Time 10.7 sec (9.0-12.0)
[2021-01-10 18:51] LABS: HCT 42.9 % (37.2-46.3); MCH 28.7 pg (27.0-32.0); MCHC 32.6 g/dL (32.0-37.0); MCV 87.9 fL (80.0-97.0); Mean Platelet Volume 10.3 fL (9.5-12.2); Platelet Count 301 X 10*3/uL (140-440); RBC 4.88 X 10*6/uL (4.10-5.20); RDW 13.1 % (11.5-14.5); WBC 5.95 X 10*3/uL (4.50-10.00)
[2021-01-11 00:35] LABS: ALT 34 U/L (8-44); AST 32 U/L (13-35); African American GFR (CKD) 101.3 (60.0-200.0); Albumin 4.9 g/dL (3.8-4.9); Albumin/Globulin Ratio 1.95 (1.60-3.17); Alkaline Phosphatase 146 U/L (41-126); BUN/Creat Ratio 21.12 Ratio (12.00-20.00); Blood Urea Nitrogen 15.9 mg/dL (9.0-27.0); Calcium 9.9 mg/dL (8.7-10.3); Carbon Dioxide 26.9 mmol/L (21.6-31.8); Chloride 102 mmol/L (96-109); Chol/HDL Ratio 5.63 Ratio; Globulin 2.5 g/dL (1.6-3.3); Glucose 104 mg/dL (70-110); LDL Cholesterol,Calculated 121.3 mg/dL (0.0-131.0); Magnesium 2.3 mg/dL (1.5-2.4); Non-African American GFR(CKD) 87.4 (60.0-200.0); Potassium 5.3 mmol/L (3.5-5.5); Sodium 141 mmol/L (135-145); Total Bilirubin <0.20 mg/dL (0.30-1.20); Total Protein 7.4 g/dL (6.2-8.2)
[2021-01-11 00:36] LABS: % Iron Saturation 19.11 (12.00-45.00); Iron 64 ug/dL (50-170); Phosphorus 4.3 mg/dL (2.4-5.1); Total Iron Binding Capacity 336 ug/dL (228-460)
[2021-01-11 13:03] LABS: Zinc, Serum 84 ug/dL (60-130)
[2021-01-12 07:03] LABS: Vit B1(Thiamine) 57 ug/L (38-122)
[2021-01-12 13:13] LABS: Vitamin A 56 ug/dL (38-106)
[2021-01-13 04:22] LABS: Selenium 122 mcg/L (63-160)
== END | disposition home or self-care (01) ==
LOC: LABWHC1 14:40
PROVIDERS: ATTEND Surgery Plastic and Reconstructive Surgery
DX: E66.01 Morbid (severe) obesity due to excess calories (principal); E89.1 Postprocedural hypoinsulinemia; D50.8 Other iron deficiency anemias; K90.89 Other intestinal malabsorption; E55.9 Vitamin D deficiency, unspecified; N19 Unspecified kidney failure; K74.1 Hepatic sclerosis; K50.90 Crohn's disease, unspecified, without complications
CPT/HCPCS: 36415; 80053; 80061; 82306; 82525; 82607; 82728; 82746; 83036; 83540; 83550; 83735; 83970; 84100; 84134; 84255; 84425; 84443; 84590; 84630; 85027; 85610; 85730

== ENCOUNTER → 2021-02-01 | Outpatient (CLI) | payer OTHER ==
--- NOTE | 2021-02-02 12:32 | MM ---
Reason for exam: screening (asymptomatic). Last mammogram was performed 1 year and 3 months ago. History: Patient is postmenopausal and history of endometrial cancer. Family history of breast cancer in mother. Excisional biopsy of the right breast. Took hormonal contraceptives for 14 years. Physical Findings: A clinical breast exam by your physician is recommended on an annual basis and results should be correlated with mammographic findings. MG 3D Screening Mammo W/Cad Bilateral CC and MLO view(s) were taken. Prior study comparison: November 04, 2019, bilateral MG 3d screening mammo w/cad. August 06, 2018, bilateral MG 3d screening mammo w/cad. The breast tissue is heterogeneously dense. This may lower the sensitivity of mammography. There is no discrete abnormality. No significant changes when compared with prior studies. ASSESSMENT: Negative, BI-RAD 1 RECOMMENDATION: Routine screening mammogram of both breasts in 1 year.
== END ==
LOC: RADMAMWWP 12:43
PROVIDERS: ATTEND Family Medicine
DX: Z12.31 Encounter for screening mammogram for malignant neoplasm of breast (principal); Z80.3 Family history of malignant neoplasm of breast
CPT/HCPCS: 77063; 77067

== ENCOUNTER → 2021-02-01 | Outpatient (CLI) | payer OTHER ==
--- NOTE | 2021-02-01 14:05 | US ---
EXAMINATION TYPE: US thyroid st tissue head/neck DATE OF EXAM: 02/01/2021 COMPARISON: 09/16/2019 CLINICAL HISTORY: 60-year-old female E04.2 Nontoxic multinodular goiter. Patient with a previous thyr oid biopsy TECHNIQUE: Multiple sonographic images of the thyroid gland are obtained. FINDINGS: GLAND SIZE: Right Lobe: 4.9 x 1.2 x 1.2 cm Overall Parenchyma: heterogenous Left Lobe: 4.3 x 1.3 x 1.2 cm Overall Parenchyma: heterogeneous Isthmus Thickness: 0.2 cm NODULES RIGHT: # of nodules measured on right: 2 1. 0.7 X 0.8 x 0.4 cm, mid pole, mixed, primarily solid nodule, which is wider than tall, with smoo th margins, with echogenic foci. Prior size: 0.7 x 0.8 x 0.4 cm 2. 0.2 X 0.2 x 0.2 cm, mid lower pole, tiny colloid cyst. Prior size: 0.2 x 0.2 x 0.2 cm (Additionally, multiple subcentimeter nodules seen in right thyroid) LEFT: # of nodules measured on left: 2 1. 0.7 X 0.8 x 0.4 cm, lower pole, hypoechoic nodule, which is wider than tall, with smooth margins , with echogenic foci. Prior size: 0.6 x 0.7 x 0.6 cm 2. 0.7 X 0.7 x 0.6 cm, lower lateral pole, hypoechoic nodule, which is wider than tall, with irregu lar margins, with echogenic foci. Prior size: 0.8 x 0.7 x 0.7 cm ISTHMUS: # of nodules measured in the isthmus: 0 Bilateral neck scanned: superior to right thyroid lymph node is seen = 0.9 x 0.7 x 0.4cm; superior to left thyroid a lymph node is imaged = 0.8 x 0.7 x 0.3cm. IMPRESSION: 1. Borderline thyromegaly, possible multinodular goiter. Dominant nodules measuring up to 8 mm on the right and 8 mm on the left remain unchanged. 2. A couple prominent but nonenlarged lymph nodes noted above the thyroid gland on either side measur ing up to 7 mm short axis.
== END ==
LOC: RADUSWWP 10:09
PROVIDERS: ATTEND Internal Medicine
DX: E04.2 Nontoxic multinodular goiter (principal)
CPT/HCPCS: 76536

== ENCOUNTER → 2021-05-03 | Outpatient (CLI) | payer OTHER ==
--- NOTE | 2021-05-03 14:30 | P.BASOAP ---
Subjective Progress Note Date: 05/03/21 DATE OF SERVICE: 05/03/2021 CHIEF COMPLAINT: Status post gastric bypass HISTORY OF PRESENT ILLNESS: Vangie Spears is a 60-year-old female status post gastric bypass, 10/31/2020. She is over 6 months out. She denies abdominal pain. She is off medications. She is doing fantastic. She is not aware of her protein intake. Her hair is falling out. At height of 5 feet 4 inches, her ideal body weight is 144 pounds. Her highest weight is present 233 pounds, BMI 40.1. She comes in 165 pounds from 178 pounds, 3 months ago. She has lost 13 pounds in 3 months. Her body mass index is 28.3. She is 21 pounds overweight. Lifetime weight loss is 68 pounds. Percent lifetime weight loss is 77 %. PHYSICAL EXAM: VITAL SIGNS: Height 5 foot 4 inches, weight 165 pounds. BMI 28.3 Vital Signs Temp 98.1 F 05/03/21 14:32 Pulse 76 05/03/21 14:32 Resp BP 121/78 05/03/21 14:32 Pulse Ox GENERAL: Well-developed in no acute distress. Vital signs are excellent. HEENT: No scleral icterus. Extraocular movements grossly intact. Hears conversational speech. No nasal drainage. NECK: Supple without lymphadenopathy. CHEST: Nonlabored respirations with equal bilateral excursions. CARDIOVASCULAR: Regular rate and rhythm. Distal 2+ pulses. ABDOMEN: No infection. No hernia. Non-tender MUSCULOSKELETAL: No clubbing, cyanosis. NEURO: No focal or lateralizing signs. Cranial nerves 2 through 12 grossly within normal limits. PSYCH: Appropriate affect. Alert and oriented to person, place and time. SKIN: Good skin turgor. Well perfused. ASSESSMENT: 1. Morbid obesity due to excess calories 2. Body mass index of 39.7 to 28.3 3. Osteoarthritis of the knees. 4. Osteoarthritis of the lower back 5. Hypertensive heart disease. 6. Gastroesophageal reflux disease with esophagitis 7. Hyperlipidemia 8. Depressive disorder 9. Osteoarthritis of the hips 10. Hypertriglyceridemia 11. Hypercholesterolemia 12. Elevated liver enzymes 13. Vitamin D deficiency 14. Zinc deficiency 15. Chronic gastritis 16. Hiatal hernia 17. Status post gastric bypass PLAN: 1. Recommend bariatric labs. 2. Recommend protein intake 75 grams daily. Assessment/Plan Plan: Date: Initial Weight: 104.78 kg Initial BMI: Current Weight: Current BMI: Type of Surgery: Total Volume in Band: Previous Volume: Volume Removed: Volume Added: Band Size:
[2021-05-03 14:34] VITALS: BP 121/78; PULSE 76; TEMP 98.1; BMI 28.3
== END ==
LOC: BARWHC3 13:12
PROVIDERS: ATTEND Surgery Plastic and Reconstructive Surgery
DX: E66.01 Morbid (severe) obesity due to excess calories (principal); M17.0 Bilateral primary osteoarthritis of knee; M47.9 Spondylosis, unspecified; I11.9 Hypertensive heart disease without heart failure; K21.00 Gastro-esophageal reflux disease with esophagitis, without bleeding; E78.5 Hyperlipidemia, unspecified; F32.A Depression, unspecified; E78.00 Pure hypercholesterolemia, unspecified; R94.5 Abnormal results of liver function studies; E55.9 Vitamin D deficiency, unspecified; E60 Dietary zinc deficiency; K29.50 Unspecified chronic gastritis without bleeding; K44.9 Diaphragmatic hernia without obstruction or gangrene; Z98.84 Bariatric surgery status; Z68.28 Body mass index [BMI] 28.0-28.9, adult; Z88.1 Allergy status to other antibiotic agents; Z88.8 Allergy status to other drugs, medicaments and biological substances; Z87.891 Personal history of nicotine dependence
CPT/HCPCS: 99211

== ENCOUNTER → 2021-05-03 | Outpatient (CLI) | payer OTHER ==
[2021-05-03 20:15] LABS: ALT 24 U/L (8-44); AST 28 U/L (13-35); Chol/HDL Ratio 6.04 Ratio; LDL Cholesterol,Calculated 135.4 mg/dL (0.0-131.0)
== END | disposition home or self-care (01) ==
LOC: LABWHC1 12:29
PROVIDERS: ATTEND Internal Medicine Interventional Cardiology
DX: E78.2 Mixed hyperlipidemia (principal)
CPT/HCPCS: 36415; 80061; 84450; 84460

== ENCOUNTER → 2021-07-17 | Outpatient (CLI) | payer OTHER ==
--- NOTE | 2021-07-17 14:28 | XR ---
EXAMINATION TYPE: XR Hip Complete RT DATE OF EXAM: 07/17/2021 CLINICAL HISTORY: pain TECHNIQUE: AP and frogleg views of the right hip are obtained. COMPARISON: 01/19/2020 FINDINGS: There is no acute fracture/dislocation evident. The joint space appears mildly narrowed. The overlying soft tissue appears unremarkable. IMPRESSION: 1. There is no acute fracture or dislocation. ICD 10 NO FRACTURE, INITIAL EVALUATION
== END | disposition home or self-care (01) ==
LOC: RADXRMAIN 13:50
PROVIDERS: ATTEND Family Medicine
DX: M25.551 Pain in right hip (principal)
CPT/HCPCS: 73502

== ENCOUNTER → 2021-07-17 | Outpatient (CLI) | payer OTHER ==
[2021-07-17 15:59] LABS: Partial Thromboplastin Time 26.1 sec (22.0-30.0); Prothrombin Time 10.9 sec (9.0-12.0)
== END | disposition home or self-care (01) ==
LOC: LABWHC1 14:10
PROVIDERS: ATTEND Surgery Plastic and Reconstructive Surgery
DX: E66.01 Morbid (severe) obesity due to excess calories (principal); K90.89 Other intestinal malabsorption; K90.9 Intestinal malabsorption, unspecified
CPT/HCPCS: 36415; 85610; 85730

== ENCOUNTER → 2021-09-12 | Outpatient (CLI) | payer OTHER ==
[2021-09-12 11:54] LABS: Partial Thromboplastin Time 25.5 sec (22.0-30.0); Prothrombin Time 10.7 sec (9.0-12.0)
[2021-09-12 14:32] LABS: HCT 41.6 % (37.2-46.3); HGB 14.2 g/dL (12.0-15.0); MCHC 34.1 g/dL (32.0-37.0); MCV 84.9 fL (80.0-97.0); NRBC Per 100 WBC 0 /100 WBCS (0.0-0.0); Platelet Count 263 X 10*3/uL (140-440); RDW 11.9 % (11.5-14.5); WBC 5.93 X 10*3/uL (4.50-10.00)
[2021-09-12 15:34] LABS: LDL Cholesterol,Calculated 150.6 mg/dL (0.0-131.0); Prealbumin 24.3 mg/dL (18.0-42.0)
[2021-09-12 15:49] LABS: Iron 83 ug/dL (50-170); Phosphorus 4.1 mg/dL (2.4-5.1)
[2021-09-12 15:50] LABS: % Iron Saturation 23.67 (12.00-45.00); ALT 27 U/L (8-44); AST 31 U/L (13-35); African American GFR (CKD) 115.6 (60.0-200.0); Albumin 4.9 g/dL (3.8-4.9); Albumin/Globulin Ratio 1.81 (1.60-3.17); Alkaline Phosphatase 167 U/L (41-126); BUN/Creat Ratio 33.33 Ratio (12.00-20.00); Calcium 9.6 mg/dL (8.7-10.3); Carbon Dioxide 26.6 mmol/L (20.0-27.5); Chloride 102 mmol/L (96-109); Ferritin 71.7 ng/mL (10.0-291.0); Globulin 2.7 g/dL (1.6-3.3); Glucose 89 mg/dL (70-110); Non-African American GFR(CKD) 99.8 (60.0-200.0); Potassium 4.1 mmol/L (3.5-5.5); Sodium 141 mmol/L (135-145); Total Iron Binding Capacity 349 ug/dL (228-460); Total Protein 7.6 g/dL (6.2-8.2)
[2021-09-13 12:04] LABS: Zinc, Serum 73 ug/dL (60-130)
== END | disposition home or self-care (01) ==
LOC: LABWHC1 10:58
PROVIDERS: ATTEND Surgery Plastic and Reconstructive Surgery
DX: E66.01 Morbid (severe) obesity due to excess calories (principal); D50.8 Other iron deficiency anemias; K91.2 Postsurgical malabsorption, not elsewhere classified; E44.0 Moderate protein-calorie malnutrition; E45 Retarded development following protein-calorie malnutrition; K74.1 Hepatic sclerosis; N19 Unspecified kidney failure; T56.894A Toxic effect of other metals, undetermined, initial encounter; K50.90 Crohn's disease, unspecified, without complications
CPT/HCPCS: 36415; 80053; 80061; 82306; 82525; 82607; 82728; 82746; 83036; 83540; 83550; 83735; 83970; 84100; 84134; 84255; 84425; 84443; 84590; 84630; 85027; 85610; 85730

== ENCOUNTER → 2021-09-21 | Outpatient (CLI) | payer OTHER ==
--- NOTE | 2021-09-21 12:36 | P.SLEEP ---
History of Present Illness DATE: 09/21/2021 CONSULTATION/NEW PATIENT EVALUATION HISTORY OF PRESENT ILLNESS/SLEEP-WAKE EVALUATION: 61year old lady had been evaluated in the sleep center for possible obstructive sleep apnea hypopnea syndrome and insomnia. SLEEP SCHEDULE: Usually sleep schedule on weekdays from 8- 9 PM until 6 -7 AM, during days off from 10 PM until 9 AM. FALLING ASLEEP: Patient does have problems with falling asleep although there is no TV in bedroom and she does not read in bedroom. DURING SLEEP: Patient sleeps in different positions. Has significant amount of movements during the night. She wakes up 2 times with nocturia. She snores, has episodes of heartburn and sweating No history of hypnogogical hallucinations, sleep paralysis, or cataplexy. DURING THE DAY/WAKE STATE: In the morning patient wake up tired, has difficulties to pay attention, has problems with concentration, irritability, depression, and anxiety. [place] sleepiness scale is 8. She does not take any naps. PAST MEDICAL HISTORY: History of hypertension, acid reflux, episodes of depression and anxiety, history of anemia. PAST SURGICAL HISTORY: Gastric bypass surgery patient lost weight on around 80 pounds, tonsillectomy, right breast lumpectomy for benign issue, cholecystectomy. MEDICATIONS: Effexor 150 mg once a day, omeprazole 40 mg once a day. SOCIAL HISTORY: Negative for smoking or using alcohol. FAMILY HISTORY: Stroke, cancer, diabetes mellitus REVIEW OF SYSTEMS: Snoring, multiple awakenings from sleep, difficulties to i nitiate sleep, restless leg symptoms. No fevers. No double vision. No recent chest pain. No shortness of breath. No abdominal pain. No bleeding episodes. No blood in urine. No seizure episodes. PHYSICAL EXAMINATION: GENERAL: A pleasant patient without any distress. VITAL SIGNS: BP 133/80 , HR 70 , RR 12 , weight 161.2 pounds, height 5 foot 4- 1/2 inches, body mass index 27.2 . HEENT: PERRLA, EOMI. Evaluation of oropharynx showed tongue protrudes midline, wide pillars, short distance between soft palate and posterior pharyngeal wall. NECK: Supple. No JVD. Thyroid is not palpable. 13-1/2 inches in circumference. LUNGS: Clear to percussion and to auscultation. Good air exchange. No wheezing or rhonchi. HEART: S1, S2 regular. No murmurs, gallops or rubs. ABDOMEN: Soft and nontender. Bowel sounds are present. No organomegaly appreciated. EXTREMITIES: No clubbing or cyanosis. PRESSFITTER: Awake, alert, and oriented x3. Cranial nerves 2 to 7 intact. There is no fasciculation or atrophy noted. No focal deficits observed. ASSESSMENT: 1. Snoring, multiple awakenings from sleep, small oropharyngeal air space. Possible obstructive sleep apnea hypopnea syndrome. 2. Significant amount of movements during the night possibly periodic limb movements. 3 restless leg symptoms. 4. Difficulties to initiate sleep secondary to psychophysiological insomnia, but also could be secondary to restless leg symptoms. 5 history of anemia. 6. History of hypertension. 7. History of depression and anxiety. 8. Acid reflux. 9. Status post tonsillectomy. 10. Status post cholecystectomy. 11. Status post right breast lumpectomy for benign tumor. 12. Status post gastric bypass surgery in 2020. 13. Status post thyroid needle biopsy revealed benign results. PLAN: 1. Polysomnography for evaluation of patient's breathing and possibly leg movements during sleep. 2. I discussed with patient psychological techniques for treatment of insomnia including stimulus control, paradoxical intention, no watching clock in bedroom. 3. Preferable position during sleep on the side. 4. No driving if patient feels any sleepiness. Patient is aware of civil and criminal liability for unsafe driving. 5. Sleep hygiene with regular sleep time for 7.5 hours. 6. Watching weight. Sincerely, Chapin Allison MD, PhD, FAASM. Diplomat of [employer], Sleep Medicine Board by [employer] [employer] Business Process Representative of [facility] Past Medical History Past Medical History: GERD/Reflux, Hyperlipidemia, Hypertension, Osteoarthritis (OA) History of Any Multi-Drug Resistant Organisms: None Reported Past Surgical History: Bariatric Surgery, Breast Surgery, Cholecystectomy, Tonsillectomy Additional Past Surgical History / Comment(s): Right breast lumpectomy, thyroid biopsy, D&C. , EGD, COLONOSCOPY, LT BREAST NEEDLE BX, D & C GAstric Bypass 10-31-20 Past Anesthesia/Blood Transfusion Reactions: No Reported Reaction Past Psychological History: Anxiety, Depression Smoking Status: Former smoker Past Alcohol Use History: Rare Additional Past Alcohol Use History / Comment(s): Quit smoking 2005 Past Drug Use History: None Reported - Past Family History Mother Family Medical History: Cancer Additional Family Medical History / Comment(s): Thyroid and breast cancer. Medications and Allergies Home Medications Medication Instructions Recorded Confirmed Type Omeprazole [PriLOSEC] 40 mg PO DAILY #30 capsule. 11/02/20 08/02/21 Rx Biotin [Biotin Disolve] 6,000 mcg PO DAILY 08/02/21 08/02/21 History Ergocalciferol [Vitamin D2 (1250 5,000 mcg PO DAILY 08/02/21 08/02/21 History Mcg = 43053 Iu)] Inulin/Chromium Picolinate [Fiber 1 tab PO DAILY 08/02/21 08/02/21 History Gummies Chew] Multivitamin [Multivitamins Adult 1 each PO DAILY 08/02/21 08/02/21 History Gummies] Nystatin 100,000 Unit/gm Powd 1 applic TOPICAL BID #60 gm 08/02/21 Rx [Mycostatin Powder] Venlafaxine HCl ER [Effexor XR] 150 mg PO DAILY 08/02/21 08/02/21 History Allergies Allergy/AdvReac Type Severity Reaction Status Date / Time atorvastatin [From Lipitor] AdvReac Severe Verified 02/01/21 14:04 Muscle Spasms cephalexin [From Keflex] AdvReac Yeast Verified 02/01/21 14:04 Infection Sleep Note - Sleep Note Sleep Note: Temperature: Pulse Rate: Respiratory Rate: Blood Pressure: SpO2: Height: Weight: BMI: Neck Circumference:
== END ==
LOC: SLEEP 11:50
PROVIDERS: ATTEND Internal Medicine
DX: F51.04 Psychophysiologic insomnia (principal); R06.83 Snoring; G47.61 Periodic limb movement disorder; G25.81 Restless legs syndrome; Z86.2 Personal history of diseases of the blood and blood-forming organs and certain disorders involving the immune mechanism; I10 Essential (primary) hypertension; F41.8 Other specified anxiety disorders; K21.9 Gastro-esophageal reflux disease without esophagitis; Z90.49 Acquired absence of other specified parts of digestive tract; Z98.890 Other specified postprocedural states; Z86.018 Personal history of other benign neoplasm; E78.5 Hyperlipidemia, unspecified; M19.90 Unspecified osteoarthritis, unspecified site; Z87.891 Personal history of nicotine dependence; Z98.84 Bariatric surgery status; Z79.899 Other long term (current) drug therapy; Z88.1 Allergy status to other antibiotic agents; Z88.8 Allergy status to other drugs, medicaments and biological substances
CPT/HCPCS: 99211

== ENCOUNTER → 2021-10-09 | Outpatient (CLI) | payer OTHER ==
--- NOTE | 2021-10-09 12:43 | MR ---
MRI right hip without contrast HISTORY: Right hip pain Multiplanar multisequence imaging obtained through the pelvis with small ponsx-bu-pawk imaging obtain ed through the right hip. Correlation to plain film right hip 07/17/2021 Bone marrow signal is maintained. Articular cartilage signal is are symmetric. No definite labral tea r. No sizable joint effusion. Origins of the hamstring musculature is stable. At the level of the ins ertion of the gluteus minimus tendon there is some abnormal increased signal on T2-weighted sequences . Muscular signal is symmetric bilaterally. There is no fracture or dislocation. No evident adenopath y. Uterus shows some questionable thickening of the endometrium, fluid signal present along the endometr ium. Ovaries are not well seen. No significant free fluid. IMPRESSION: Findings suggest partial tear or strain of the gluteus minimus tendon. Question abnormal thickening of the endometrial canal, consider pelvic ultrasound, STOCK TURNER consult as indicated.
== END | disposition home or self-care (01) ==
LOC: RADMRIMAIN 10:22
PROVIDERS: ATTEND Family Medicine
DX: M25.551 Pain in right hip (principal)

== ENCOUNTER → 2021-11-01 | Outpatient (CLI) | payer OTHER ==
[2021-11-01 14:11] VITALS: BP 128/79; PULSE 58; TEMP 98.7; BMI 27.1
--- NOTE | 2021-11-01 14:12 | P.BASOAP ---
Subjective Progress Note Date: 11/01/21 NO GERD. No abdominal pain. Protein intake is 60 grams at least. No dumping. Recommend labs. No dysphagia. One year anniversary. Objective - Vital Signs Vital signs: Vital Signs Temp 98.7 F 11/01/21 13:12 Pulse 58 L 11/01/21 13:12 Resp BP 128/79 11/01/21 13:12 Pulse Ox FiO2 Intake & Output 10/31/21 11/01/21 11/01/21 18:59 06:59 18:59 Weight 71.668 kg Assessment/Plan Plan: Date: 11/01/21 Initial Weight: 104.78 kg Initial BMI: 39.6 Current Weight: 71.668 kg Current BMI: 27.1 Type of Surgery: Total Volume in Band: Previous Volume: Volume Removed: Volume Added: Band Size:
== END | disposition home or self-care (01) ==
LOC: BARWHC3 12:43
PROVIDERS: ATTEND Surgery Plastic and Reconstructive Surgery
DX: E66.01 Morbid (severe) obesity due to excess calories (principal); Z68.39 Body mass index [BMI] 39.0-39.9, adult
CPT/HCPCS: 97803; G0463; 99211

== ENCOUNTER → 2021-12-11 | Outpatient (CLI) | payer OTHER ==
[2021-12-11 10:01] LABS: Partial Thromboplastin Time 25.5 sec (22.0-30.0); Prothrombin Time 10.5 sec (9.0-12.0)
[2021-12-11 15:14] LABS: HCT 41.7 % (37.2-46.3); HGB 13.8 g/dL (12.0-15.0); MCHC 33.1 g/dL (32.0-37.0); MCV 84.8 fL (80.0-97.0); Mean Platelet Volume 9.6 fL (9.5-12.2); NRBC Per 100 WBC 0 /100 WBCS (0.0-0.0); Platelet Count 266 X 10*3/uL (140-440); RBC 4.92 X 10*6/uL (4.10-5.20); RDW 12.7 % (11.5-14.5); WBC 5.56 X 10*3/uL (4.50-10.00)
[2021-12-11 16:21] LABS: % Iron Saturation 30.49 (12.00-45.00); ALT 27 U/L (8-44); AST 33 U/L (13-35); African American GFR (CKD) 111.5 (60.0-200.0); Albumin 4.7 g/dL (3.8-4.9); Albumin/Globulin Ratio 1.81 (1.60-3.17); Alkaline Phosphatase 166 U/L (41-126); BUN/Creat Ratio 31.15 Ratio (12.00-20.00); Blood Urea Nitrogen 20.9 mg/dL (9.0-27.0); Calcium 9.4 mg/dL (8.7-10.3); Carbon Dioxide 27.6 mmol/L (20.0-27.5); Chloride 101 mmol/L (96-109); Ferritin 90.5 ng/mL (10.0-291.0); Globulin 2.6 g/dL (1.6-3.3); Glucose 88 mg/dL (70-110); Iron 108 ug/dL (50-170); Non-African American GFR(CKD) 96.2 (60.0-200.0); Phosphorus 3.8 mg/dL (2.4-5.1); Potassium 4.7 mmol/L (3.5-5.5); Prealbumin 24.2 mg/dL (18.0-42.0); Sodium 141 mmol/L (135-145); Total Iron Binding Capacity 354 ug/dL (228-460); Total Protein 7.2 g/dL (6.2-8.2)
[2021-12-11 16:31] LABS: Chol/HDL Ratio 5.55 Ratio; LDL Cholesterol,Calculated 199.9 mg/dL (0.0-131.0)
[2021-12-12 14:17] LABS: Zinc, Serum 99 ug/dL (60-130)
[2021-12-13 08:37] LABS: Vit B1(Thiamine) 70 ug/L (38-122)
== END | disposition home or self-care (01) ==
LOC: LABWHC1 08:28
PROVIDERS: ATTEND Surgery Plastic and Reconstructive Surgery
DX: E66.01 Morbid (severe) obesity due to excess calories (principal); E04.2 Nontoxic multinodular goiter; E89.1 Postprocedural hypoinsulinemia; D50.8 Other iron deficiency anemias; E44.0 Moderate protein-calorie malnutrition; E55.9 Vitamin D deficiency, unspecified; K74.1 Hepatic sclerosis; N19 Unspecified kidney failure; T56.894A Toxic effect of other metals, undetermined, initial encounter; K50.90 Crohn's disease, unspecified, without complications
CPT/HCPCS: 36415; 80053; 80061; 82306; 82525; 82607; 82728; 82746; 83036; 83540; 83550; 83970; 84100; 84134; 84255; 84425; 84439; 84443; 84630; 85027; 85610; 85730

== ENCOUNTER 2021-12-18 08:03 | Day surgery (SDC) | payer OTHER ==
[2021-12-14 15:14] VITALS: BMI 25.9
[~2021-12-18 08:03] MED LIST changes: -CHLORHEXIDINE GLUCONATE 15 ML CUP MUCOUS MEM PRN; -DEXAMETHASONE SOD PHOSPHATE 4 MG/ML 1 ML VIAL IV ONE; -LIDOCAINE 1% (10MG/ML) FOR IV START INTRADERMA PRN; -ONDANSETRON 4 MG/2 ML VIAL IVP ONE; -PANTOPRAZOLE 40 MG/10 ML VIAL IVP PRN; +Pre Op ABX Message 1 EACH MISC MISCELLANE ONE
[2021-12-18] MEDS ORDERED: LACTATED RINGERS 1,000 ML IV SCH (08:08)
[2021-12-18] MEDS ORDERED: SCOPOLAMINE 1 MG/72 HR PATCH TRANSDERM ONE (08:08)
[2021-12-18] MEDS ORDERED: DEXAMETHASONE SOD PHOSPHATE 4 MG/ML 1 ML VIAL IV ONE (08:08)
[2021-12-18] MEDS ORDERED: HYDROmorphone 0.5 MG/0.5 ML SYRINGE IVP PRN (08:08)
[2021-12-18] MEDS ORDERED: LIDOCAINE 1% (10MG/ML) FOR IV START INTRADERMA PRN (08:08)
[2021-12-18] MEDS ORDERED: ONDANSETRON 4 MG/2 ML VIAL IVP ONE (08:08)
[2021-12-18 09:26] VITALS: RESP 16; TEMP 97.7
[2021-12-18] MEDS ORDERED: LIDOCAINE 2% INJ 20 MG/ML (2 ML VIAL) ONE (10:28)
[2021-12-18] MEDS ORDERED: fentaNYL (PF) 50 MCG/ML 2 ML AMP ONE (10:28)
[2021-12-18] MEDS ORDERED: KETOROLAC 15 MG/ML 1 ML VIAL ONE (10:28)
[2021-12-18] MEDS ORDERED: PROPOFOL 10 MG/ML 20 ML VIAL IV ONE (10:28)
[2021-12-18] MEDS ORDERED: MIDAZOLAM 2 MG/2 ML VIAL ONE (10:28)
[2021-12-18] MEDS ORDERED: LACTATED RINGERS 1,000 ML IV ONE (10:57)
--- NOTE | 2021-12-18 11:01 | P.OP ---
Date of Procedure: 12/18/21 Preoperative Diagnosis: Thickened endometrial lining Postoperative Diagnosis: Same plus and endometrial polyp Procedure(s) Performed: Hysteroscopy, dilation and curettage Anesthesia: MAC Surgeon: Theresa Dewitt Estimated Blood Loss (ml): 5 IV fluids (ml): 600 Urine output (ml): 100 Pathology: none sent (Endometrial curettings plus polyps) Condition: stable Disposition: PACU Indications for Procedure: Thickened endometrium noted on ultrasound, endometrial biopsy in the office was nondiagnostic, polyp was suspected Operative Findings: Endometrial polyps within the endometrial cavity Description of Procedure: Patient was taken back to the operating suite where general anesthesia was obtained without difficulty by the anesthesia department. She was prepped and draped in the normal sterile fashion in the dorsal lithotomy position a red rubber catheter was used to drain the bladder of clear yellow urine. A weighted speculum was placed in the posterior vaginal vault, the anterior lip of the cervix was visualized and grasped with a single-tooth tenaculum. The endocervical canal was then serially dilated. Hysteroscope was placed through the cervix and toward the endometrial cavity. Multiple polyps were appreciated. The gutters were taken and the hysteroscope was removed. Sharp curettage was then performed and multiple polyps were removed without difficulty. The specimen was then sent to pathology for analysis. The single tooth tenaculum was taken off of the anterior lip of the cervix hemostasis was appreciated. All instruments removed from the patient's vaginal vault All counts are correct 2 patient tolerated procedure well and was taken room awake in stable condition.
[2021-12-18 12:12] VITALS: BP 141/81; PULSE 64
== END 2021-12-18 12:26 | disposition home or self-care (01) ==
LOC: OR 08:03
PROVIDERS: ATTEND Obstetrics & Gynecology Obstetrics
DX: N84.0 Polyp of corpus uteri (principal); Z90.49 Acquired absence of other specified parts of digestive tract; Z85.42 Personal history of malignant neoplasm of other parts of uterus; Z90.89 Acquired absence of other organs; Z87.42 Personal history of other diseases of the female genital tract; Z98.84 Bariatric surgery status; Z79.899 Other long term (current) drug therapy; Z80.3 Family history of malignant neoplasm of breast; Z80.0 Family history of malignant neoplasm of digestive organs; Z82.5 Family history of asthma and other chronic lower respiratory diseases
CPT/HCPCS: 81025; 88305; 58558; J2250; J1100; J2405; J3010; J1885; J2704; J2001

== ENCOUNTER → 2022-02-26 | Outpatient (CLI) | payer OTHER ==
--- NOTE | 2022-02-27 09:24 | MM ---
Reason for Exam: Screening (asymptomatic). Last mammogram was performed 1 year(s) and 1 month(s) ago. Patient History: Menarche at age 14. First Full-Term at age 21. Postmenopausal. Endometrial cancer. Patient used Hormonal Contraceptives for 14 years. Excisional Biopsy on the Right side. Mother had breast cancer. Risk Values: Elvira 5 year model risk: 3.0%. NCI Lifetime model risk: 15.8%. Prior Study Comparison: 08/06/2018 Bilateral Screening Mammogram, [facility]. 11/04/2019 Bilateral Screening Mammogram, [facility]. 02/01/2021 Bilateral Screening Mammogram, [facility]. Tissue Density: The breast tissue is heterogeneously dense. This may lower the sensitivity of mammography. Findings: Analyzed By CAD. There is no suspicious group of microcalcifications or new suspicious mass in either breast. Overall Assessment: Negative, BI-RAD 1 Management: Screening Mammogram of both breasts in 1 year. A clinical breast exam by your physician is recommended on an annual basis and results should be correlated with mammographic findings. Electronically signed and approved by: Markell Rossi M.D. Radiologis
== END | disposition home or self-care (01) ==
LOC: RADMAMWWP 10:53
PROVIDERS: ATTEND Family Medicine
DX: Z12.31 Encounter for screening mammogram for malignant neoplasm of breast (principal); Z78.0 Asymptomatic menopausal state; Z80.3 Family history of malignant neoplasm of breast; Z98.890 Other specified postprocedural states
CPT/HCPCS: 77063; 77067

== ENCOUNTER 2022-10-22 08:21 | Day surgery (SDC) | payer OTHER ==
[2022-10-12 16:59] VITALS: BMI 26.6
[~2022-10-22 08:21] MED LIST changes: +DEXAMETHASONE SOD PHOSPHATE 4 MG/ML 1 ML VIAL IV ONE; +HYDROmorphone 0.5 MG/0.5 ML SYRINGE IVP PRN; +LACTATED RINGERS 1,000 ML IV SCH; +MIDAZOLAM 2 MG/2 ML VIAL IV PRN; +ONDANSETRON 4 MG/2 ML VIAL IVP ONE; +SCOPOLAMINE 1 MG/72 HR PATCH TRANSDERM ONE
[2022-10-22] MEDS ORDERED: MIDAZOLAM 2 MG/2 ML VIAL IVP ONE (09:11)
--- NOTE | 2022-10-22 09:59 | P.HPOB ---
History of Present Illness H&P Date: 10/22/22 Chief Complaint: KATHARINE-II This is a 62-year-old female that presents for wide local excision of thin 2 lesion. Patient presented to the office early August with complaints of a new onset of a whitish lesion that it started in July. Initially she thought it was just a "pimple" but 8 she was unable to pop it. Early August biopsy was performed revealing KATHARINE-II. Patient presents today for wide local excision. Review of Systems Constitutional: Denies chills, Denies fatigue, Denies fever Ears, nose, mouth and throat: Denies headache Cardiovascular: Denies leg edema Respiratory: Denies dyspnea Gastrointestinal: Denies nausea, Denies vomiting Genitourinary: Denies Menstruation: Reports postmenopausal Past Medical History Past Medical History: GERD/Reflux, Osteoarthritis (OA), Sleep Apnea/CPAP/BIPAP Additional Past Medical History / Comment(s): heart murmur., multiple thyroid nodules, past htn-resolved with wt loss., no sleep apnea machine used History of Any Multi-Drug Resistant Organisms: None Reported Past Surgical History: Bariatric Surgery, Breast Surgery, Cholecystectomy, Tonsillectomy Additional Past Surgical History / Comment(s): Right breast lumpectomy, thyroid biopsy, D&C. , EGD, COLONOSCOPY, LT BREAST NEEDLE BX, D & C GAstric Bypass 10-31-20 Past Anesthesia/Blood Transfusion Reactions: No Reported Reaction Additional Past Anesthesia/Blood Transfusion Reaction / Comment(s): hx of blood transfusion approx 8yrs ago-denies reaction Past Psychological History: Anxiety, Depression Smoking Status: Former smoker Past Alcohol Use History: Rare Additional Past Alcohol Use History / Comment(s): Quit smoking 2005 Past Drug Use History: None Reported - Past Family History Mother Family Medical History: Cancer Additional Family Medical History / Comment(s): Thyroid and breast cancer. Medications and Allergies Home Medications Medication Instructions Recorded Confirmed Type Omeprazole [PriLOSEC] 40 mg PO DAILY #30 capsule. 11/02/20 10/22/22 Rx Biotin [Biotin Disolve] 6,000 mcg PO DAILY 08/02/21 10/22/22 History Ergocalciferol [Vitamin D2 (1250 5,000 mcg PO DAILY 08/02/21 10/22/22 History Mcg = 07527 Iu)] Multivitamin [Multivitamins Adult 1 each PO DAILY 08/02/21 10/12/22 History Gummies] Venlafaxine HCl ER [Effexor XR] 150 mg PO DAILY 08/02/21 10/22/22 History Ascorbic Acid [Vitamin C] 1,000 mg PO DAILY 10/12/22 10/22/22 History Calcium Carbonate/Vitamin D3 1 each PO DAILY 10/12/22 10/22/22 History [Calcium 600 mg-D3 20 mcg (800 unit)] Ferrous Sulfate [Feosol] 325 mg PO TID 10/12/22 10/22/22 History Inulin/Chromium Picolinate [Fiber 1 tab PO DAILY 10/12/22 10/22/22 History Gummies Chew] Magnesium Oxide [Magnesium] 500 mg PO DAILY 10/12/22 10/22/22 History Zinc Gluconate [Zinc] 50 mg PO DAILY 10/12/22 10/22/22 History Allergies Allergy/AdvReac Type Severity Reaction Status Date / Time atorvastatin [From Lipitor] AdvReac Severe Verified 10/22/22 08:35 Muscle Spasms cephalexin [From Keflex] AdvReac Yeast Verified 10/22/22 08:35 Infection Exam Osteopathic Statement: *. No significant issues noted on an osteopathic structural exam other than those noted in the History and Physical/Consult. Vital Signs Temp Pulse Resp BP Pulse Ox 10/22/22 09:25 57 L 16 93 L 10/22/22 08:43 97.3 F L 55 L 16 151/85 97 Intake and Output 10/21/22 10/22/22 10/22/22 22:59 06:59 14:59 Other: Weight 70.9 kg Targeted physical exam is performed and state in general this a well-nourished well developed female in no acute distress, breathing is nonlabored, heart has a regular rate and rhythm, abdomen is soft and nontender, on genitourinary exam external genitalia is noted to be normal for age. The area is noted with a 4 mm punch scar appreciated. No discharge is noted. Weighted tissue is surrounding the biopsy area. Assessment and Plan (1) KATHARINE II (vulvar intraepithelial neoplasia II) Current Visit: Yes Status: Acute Code(s): N90.1 - MODERATE VULVAR DYSPLASIA SNOMED Code(s): 222738213 Plan: 8-year-old female with diagnosis of KATHARINE-II on biopsy presents for wide local excision. Procedures reviewed, questions are answered. We'll proceed with wide local excision.
[2022-10-22] MEDS ORDERED: LIDOCAINE 1% INJ 10MG/ML (20 ML MDV) SQ ONE ×2 (10:22→10:43)
[2022-10-22] MEDS ORDERED: BACITRACIN ZINC 500 UNIT/GM OINT 28.4 GM TUBE TOPICAL ONE (10:41)
--- NOTE | 2022-10-22 10:53 | P.OP ---
Date of Procedure: 10/22/22 Preoperative Diagnosis: KATHARINE-II Postoperative Diagnosis: Same Procedure(s) Performed: Wide local excision Anesthesia: MAC Surgeon: Theresa Dewitt Estimated Blood Loss (ml): 2 IV fluids (ml): 200 Urine output (ml): 100 Pathology: other (Right lower vulva) Condition: stable Disposition: PACU Indications for Procedure: KATHARINE-II on biopsy Operative Findings: Elongated area approximately 0.5 cm in length of prior noted KATHARINE 2 based on biopsy specimen Description of Procedure: Patient was taken back to the operating suite where general anesthesia was obtained without difficulty by the anesthesia department. She was prepped and draped in normal sterile fashion in the dorsal lithotomy position. Goree catheter was used to drain the bladder of clear yellow urine. Area was id entified and elevated with an Allis. An elliptical incision was made with scalpel the specimen was then transected and the edges were made hemostatic with the Bovie. The subcutaneous tissue was closed with 2 simple 3-0 Rapide sutures. The skin was closed in a running suture subcuticular fashion. Hemostasis was appreciated. Bacitracin was placed along the incision site. All counts were correct 2 at the end of the procedure. Patient tolerated procedure well and was taken the recovery room awake in stable condition.
[2022-10-22] MEDS ORDERED: PROPOFOL 10 MG/ML 20 ML VIAL IV ONE (10:56)
[2022-10-22] MEDS ORDERED: fentaNYL (PF) 50 MCG/ML 2 ML AMP ONE (10:56)
[2022-10-22] MEDS ORDERED: LIDOCAINE 2% INJ 20 MG/ML (2 ML VIAL) ONE (10:56)
[2022-10-22 11:05] VITALS: TEMP 97.7
[2022-10-22 11:40] VITALS: RESP 16
[2022-10-22 11:51] VITALS: BP 128/76; PULSE 58
== END 2022-10-22 12:07 | disposition home or self-care (01) ==
LOC: OR 08:21
PROVIDERS: ATTEND Obstetrics & Gynecology Obstetrics
DX: N90.1 Moderate vulvar dysplasia (principal); K21.9 Gastro-esophageal reflux disease without esophagitis; M19.90 Unspecified osteoarthritis, unspecified site; G47.33 Obstructive sleep apnea (adult) (pediatric); I10 Essential (primary) hypertension; E04.2 Nontoxic multinodular goiter; E78.5 Hyperlipidemia, unspecified; F41.9 Anxiety disorder, unspecified; F32.A Depression, unspecified; F10.90 Alcohol use, unspecified, uncomplicated; Z88.8 Allergy status to other drugs, medicaments and biological substances; Z88.1 Allergy status to other antibiotic agents; Z87.891 Personal history of nicotine dependence; Z79.899 Other long term (current) drug therapy
CPT/HCPCS: 88305; 88342; 56620; J2250; J1100; J2405; J2001 ×2; J3010; J2704

== ENCOUNTER → 2023-01-07 | Outpatient (CLI) | payer OTHER | END | disposition home or self-care (01) | LOC: RADUSWWP 06:58 | PROVIDERS: ATTEND Internal Medicine | DX: Z53.9 Procedure and treatment not carried out, unspecified reason (principal) ==

== ENCOUNTER → 2023-02-27 | Outpatient (CLI) | payer OTHER ==
--- NOTE | 2023-02-28 11:57 | MM ---
Reason for Exam: Screening (asymptomatic). Last screening mammogram was performed 12 month(s) ago. Patient History: Menarche at age 14. First Full-Term at age 21. Postmenopausal. Endometrial cancer. Patient used Hormonal Contraceptives for 14 years. Excisional Biopsy on the Right side. Maternal aunt had breast cancer, age 40. Mother had breast cancer. Risk Values: Elvira 5 year model risk: 3.2%. NCI Lifetime model risk: 15.4%. Prior Study Comparison: 11/04/2019 Bilateral Screening Mammogram, [facility]. 02/01/2021 Bilateral Screening Mammogram, [facility]. 02/26/2022 Bilateral MG 3D screening mammo w/cad, [facility]. Tissue Density: The breast tissue is heterogeneously dense. This may lower the sensitivity of mammography. Findings: Analyzed By CAD. There is no suspicious group of microcalcifications or new suspicious mass. Overall Assessment: Negative, BI-RAD 1 Management: Screening Mammogram of both breasts in [address] [facility] will attempt to contact patient to return for supplemental views and ultrasound if indicated. Patient should continue monthly self-breast exams. A clinical breast exam by your physician is recommended on an annual basis. This exam should not preclude additional follow-up of suspicious palpable abnormalities. Note on Elvira scores and lifetime risk: 1. A Elvira score greater than 3% is considered moderate risk. If this is the case, consider specialist referral to assess eligibility for a risk reducing agent. 2. If overall lifetime risk for the development of breast cancer is 20% or higher, the patient may qualify for future screening with alternating mammogram and breast MRI. Electronically signed and approved by: Ranjeet Barrett DO
== END | disposition home or self-care (01) ==
LOC: RADMAMWWP 09:25
PROVIDERS: ATTEND Family Medicine
DX: Z12.31 Encounter for screening mammogram for malignant neoplasm of breast (principal); Z78.0 Asymptomatic menopausal state; Z80.3 Family history of malignant neoplasm of breast; Z92.0 Personal history of contraception
CPT/HCPCS: 77063; 77067

== ENCOUNTER → 2023-11-27 | Outpatient (CLI) | payer OTHER ==
[2023-11-27 13:28] LABS: INR 0.9 (<1.2); Partial Thromboplastin Time 25.4 sec (22.0-30.0); Prothrombin Time 10.5 sec (10.0-12.5)
[2023-11-27 18:55] LABS: HCT 40.4 % (37.2-46.3); HGB 13.7 g/dL (12.0-15.0); MCHC 33.9 g/dL (32.0-37.0); MCV 85.6 FL (80.0-97.0); Mean Platelet Volume 9.6 FL (9.5-12.2); NRBC Per 100 WBC 0 X 10*3/uL (0.00-0.01); Platelet Count 262 X 10*3/uL (140-440); RBC 4.72 X 10*6/uL (4.10-5.20); RDW 12.4 % (11.5-14.5); WBC 5.91 X 10*3/uL (4.50-10.00)
[2023-11-27 22:18] LABS: Chol/HDL Ratio 4.43 Ratio; Phosphorus 3.9 mg/dL (2.4-5.1)
[2023-11-27 22:19] LABS: ALT 38 U/L (8-44); AST 46 U/L (13-35); Albumin 4.8 g/dL (3.8-4.9); Alkaline Phosphatase 161 U/L (41-126); BUN/Creat Ratio 22.12 Ratio (12.00-20.00); Blood Urea Nitrogen 17.7 mg/dL (9.0-27.0); Calcium 9.4 mg/dL (8.7-10.3); Carbon Dioxide 28.5 mmol/L (21.6-31.8); Chloride 96 mmol/L (96-109); Globulin 2.4 g/dL (1.6-3.3); Glucose 93 mg/dL (70-110); Potassium 3.5 mmol/L (3.5-5.5); Sodium 138 mmol/L (135-145); Total Bilirubin 0.4 mg/dL (0.3-1.2); Total Protein 7.2 g/dL (6.2-8.2)
[2023-11-27 22:52] LABS: % Iron Saturation 31.53 (12.00-45.00); Iron 105 UG/DL (50-170); Total Iron Binding Capacity 333 UG/DL (228-460)
[2023-11-28 12:03] LABS: Zinc, Serum 104 ug/dL (60-130)
[2023-11-29 06:16] LABS: Vitamin A 74 ug/dL (38-106)
[2023-12-02 07:35] LABS: Vit B1(Thiamine) 51 ug/L (38-122)
[2023-12-07 01:44] LABS: Selenium 127 mcg/L (63-160)
== END | disposition home or self-care (01) ==
LOC: LABPAT 11:49
PROVIDERS: ATTEND Surgery Plastic and Reconstructive Surgery
DX: E66.01 Morbid (severe) obesity due to excess calories (principal); E89.1 Postprocedural hypoinsulinemia; D50.8 Other iron deficiency anemias; K91.2 Postsurgical malabsorption, not elsewhere classified; E44.0 Moderate protein-calorie malnutrition; E45 Retarded development following protein-calorie malnutrition; E55.9 Vitamin D deficiency, unspecified; K74.1 Hepatic sclerosis; N19 Unspecified kidney failure; T56.894A Toxic effect of other metals, undetermined, initial encounter; K50.90 Crohn's disease, unspecified, without complications
CPT/HCPCS: 80053; 80061; 82306; 82525; 82607; 82728; 82746; 83036; 83540; 83550; 83735; 83970; 84100; 84134; 84255; 84425; 84443; 84590; 84630; 85027; 85610; 85730

== ENCOUNTER 2023-12-23 08:38 | Day surgery (SDC) | payer OTHER ==
[2023-12-19 11:33] VITALS: BMI 27.0
--- NOTE | 2023-12-23 07:03 | P.GSHP ---
History of Present Illness H&P Date: 12/23/23 CHIEF COMPLAINT: GERD and colon screen HISTORY OF PRESENT ILLNESS: The patient is a 63-year-old female who presents with gastroesophageal reflux disease and need for colon screen. Upper and lower endoscopy were offered for further evaluation and management. PAST MEDICAL HISTORY: Please see list. PAST SURGICAL HISTORY: Please see list. MEDICATIONS: Please see list. ALLERGIES: Please see list. SOCIAL HISTORY: No illicit drug use FAMILY HISTORY: No reports of Crohn disease or ulcerative colitis. REVIEW OF ORGAN SYSTEMS: CONSTITUTIONAL: No reports of fevers or chills. GI: Denies any blood in stools or constipation. PHYSICAL EXAM: VITAL SIGNS: Stable GENERAL: Well-developed pleasant in no acute distress. HEENT: No scleral icterus. Extraocular movements grossly intact. Moist buccal mucosa. NECK: Supple without lymphadenopathy. CHEST: Unlabored respirations. Equal bilateral excursions. CARDIOVASCULAR: Regular rate and rhythm. Distal 2+ pulses. ABDOMEN: Soft, nondistended. MUSCULOSKELETAL: No clubbing, cyanosis, or edema. ASSESSMENT: 1. Gastroesophageal reflux disease 2. Colon screen. PLAN: 1. Recommend proceeding with an upper and lower endoscopy Past Medical History Past Medical History: Cancer, GERD/Reflux, Osteoarthritis (OA), Sleep Apnea/CPAP/BIPAP Additional Past Medical History / Comment(s): heart murmur., multiple thyroid nodules, past htn-resolved with wt loss., no sleep apnea machine used, vulva cancer 2022 History of Any Multi-Drug Resistant Organisms: None Reported Past Surgical History: Bariatric Surgery, Breast Surgery, Cholecystectomy, Tonsillectomy Additional Past Surgical History / Comment(s): Right breast lumpectomy, thyroid biopsy, D&C. , EGD, COLONOSCOPY, LT BREAST NEEDLE BX, D & C GAstric Bypass 10-31-20, vulva cancer removed 2022 Past Anesthesia/Blood Transfusion Reactions: No Reported Reaction Additional Past Anesthesia/Blood Transfusion Reaction / Comment(s): hx of blood transfusion-denies reaction Smoking Status: Former smoker - Past Family History Mother Family Medical History: Cancer Additional Family Medical History / Comment(s): Thyroid and breast cancer. maternal uncle colon cancer Medications and Allergies Home Medications Medication Instructions Recorded Confirmed Type Ergocalciferol [Vitamin D2 (1250 125 mcg PO DAILY 08/02/21 12/19/23 History Mcg = 36170 Iu)] Venlafaxine HCl ER [Effexor XR] 150 mg PO QAM 08/02/21 12/19/23 History Ascorbic Acid [Vitamin C] 500 mg PO DAILY 10/12/22 12/19/23 History Calcium Carbonate/Vitamin D3 1 each PO DAILY 10/12/22 12/19/23 History [Calcium 600 mg-D3 20 mcg (800 unit)] Magnesium Oxide [Magnesium] 500 mg PO HS 10/12/22 12/19/23 History Potassium Citrate 99 mg PO DAILY 10/24/22 12/19/23 History Atorvastatin [Lipitor] 20 mg PO HS 12/19/23 12/19/23 History Biotin [Jiqu-Evph-Rnmyk] 6,000 mcg PO DAILY 12/19/23 12/19/23 History Calciummgzinc 1 dose PO DAILY 12/19/23 12/19/23 History Cyclobenzaprine [Flexeril] 5 - 10 mg PO BID PRN 12/19/23 12/19/23 History Ferrous Sulfate [Feosol] 325 mg PO DAILY 12/19/23 12/19/23 History Multivit with Calcium,Iron,Min 1 each PO DAILY 12/19/23 12/19/23 History [Women's Multivitamin] Vitamin E (Dl,Tocopheryl Acet) 400 unit PO DAILY 12/19/23 12/19/23 History [Vitamin E (400 Iu = 180 mg)] bisacodyL [Dulcolax] 5 mg PO DAILY PRN 12/19/23 12/19/23 History hydrOXYzine HCL [Hydroxyzine HCl] 25 - 50 mg PO HS 12/19/23 12/19/23 History hydroCHLOROthiazide [Hydrodiuril] 25 mg PO DAILY 12/19/23 12/19/23 History traMADol HCL 50 mg PO Q6H PRN 12/19/23 12/19/23 History Allergies Allergy/AdvReac Type Severity Reaction Status Date / Time cephalexin [From Keflex] AdvReac Yeast Verified 11/20/23 13:03 Infection
[~2023-12-23 08:38] MED LIST changes: -DEXAMETHASONE SOD PHOSPHATE 4 MG/ML 1 ML VIAL IV ONE; -HYDROmorphone 0.5 MG/0.5 ML SYRINGE IVP PRN; -LACTATED RINGERS 1,000 ML IV SCH; +LIDOCAINE 1% (10MG/ML) FOR IV START INTRADERMA PRN; -MIDAZOLAM 2 MG/2 ML VIAL IV PRN; -ONDANSETRON 4 MG/2 ML VIAL IVP ONE; -Pre Op ABX Message 1 EACH MISC MISCELLANE ONE; -SCOPOLAMINE 1 MG/72 HR PATCH TRANSDERM ONE
[2023-12-23 08:58] VITALS: TEMP 97.4
[2023-12-23] MEDS: LACTATED RINGERS 1,000 ML IV SCH (09:07)
[2023-12-23] MEDS ORDERED: PROPOFOL 10 MG/ML 20 ML VIAL IV ONE (09:08)
[2023-12-23] MEDS ORDERED: LIDOCAINE 2% (PF) 20 MG/ML 5 ML VIAL ONE (09:08)
--- NOTE | 2023-12-23 09:22 | P.PCN ---
Date of Procedure: 12/23/23 Description of Procedure: PREOPERATIVE DIAGNOSES: 1. Gastroesophageal reflux disease 2. History of Wagner-en-Y gastric bypass POSTOPERATIVE DIAGNOSES: 1. Acute gastric ulcer 2. 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 SURGEON: Amber Bowen MD ANESTHESIA: MAC. INDICATIONS: The patient is a 63-year-old female with prior history of Wagner-en-Y gastric bypass. With her history of Wagner-en-Y gastric bypass, upper endoscopy was offered for further evaluation and management. Benefits and risks described. Informed consent was obtained. DESCRIPTION: Patient was brought to the endoscopy suite and laid in the left lateral decubitus position. After adequate IV sedation, a bite block was placed. An Olympus gastroscope was passed along the posterior oropharynx down to the distal esophagus where the squamocolumnar junction was found at approximately 35 cm from the incisors. Her anastomosis was found at 38 cm, consistent with approximately 3 cm gastric pouch. No evidence of foreign body was found. Active gastrojejunal ulceration acute on chronic without bleeding was encountered. Biopsies along the gastric pouch. The scope was passed to 50 cm of the Wagner limb. No remnant of blind jejunal limb was retained. The GI tract was desufflated. The patient tolerated the procedure well. FINDINGS: 1. Acute gastrojejunal ulceration of 2 mm. 2. No foreign body found along the anastomosis. 3. No elongated jejunal blind pouch. 4. Squamocolumnar junction at 35 cm from the incisors. 5. Anastomosis at 38 cm from the incisors. 6. Acute gastric ulcer with bleeding, 2 mm within gastric pouch, biopsies ob tained 7. Gastric pouch 3 cm. PLAN: 1. Recommend Protonix and Carafate 2 to 4-week course treatment
--- NOTE | 2023-12-23 09:41 | P.PCN ---
Date of Procedure: 12/23/23 Description of Procedure: PREOPERATIVE DIAGNOSIS: Colonoscopy screening POSTOPERATIVE DIAGNOSIS: Tubular adenoma ascending colon OPERATION: Colonoscopy to the ileocecal valve and appendiceal orifice, cecum Colonoscopy with hot snare polypectomy SURGEON: Amber Bowen MD. ANESTHESIA: MAC. INDICATIONS: The patient is an 63-year-old female who presents for colonic screening. Last colonoscopy over 5 years. Benefits and risks were described and informed consent was obtained. DESCRIPTION OF PROCEDURE: The patient had undergone GoLytely prep. The patient had been brought into the operating room and laid in the left lateral decubitus position. After adequate intravenous sedation, the rectum was examined with 2% lidocaine jelly. The prostate was unremarkable. No external hemorrhoids were encountered. The rectal tone was within normal limits. No lesions were palpated in the rectal vault. An Olympus colonoscope was advanced until the cecum, ileocecal valve and appendiceal orifice were clearly viewed. The prep was excellent. No large sigmoid diverticulosis was encountered. Colonic polyps were found and removed. No evidence of focal colitis was found. Retroflexion of the scope demonstrated grade 1 internal hemorrhoids without active bleeding or inflammation. The colon was desufflated. The patient had tolerated the procedure well. Withdrawal time was over 6 minutes. FINDINGS: Aronchick preparation quality scale 1 (1-5) Internal hemorrhoids, grade 1 No external hemorrhoids, grade 4. No arteriovenous malformations. No large sigmoid diverticulosis Removal of 1 polyps: - Snare polypectomy ascending colon, 8 mm adenoma No focal colitis. RECOMMENDATIONS: Repeat colonoscopy 3 years, 2026 Plan - Discharge Summary Discharge Rx Participant: No New Discharge Prescriptions: New Omeprazole [PriLOSEC] 40 mg PO DAILY #14 cap Continue Venlafaxine HCl ER [Effexor XR] 150 mg PO QAM Ferrous Sulfate [Iron (65 MG Elemental)] 325 mg PO DAILY Vitamin E (Dl,Tocopheryl Acet) [Vitamin E (400 Iu = 180 mg)] 400 unit PO DAILY traMADol HCL 50 mg PO Q6H PRN PRN Reason: Pain hydrOXYzine HCL 25 - 50 mg PO HS Ergocalciferol [Vitamin D2 (1250 Mcg = 55372 Iu)] 125 mcg PO DAILY Ascorbic Acid [Vitamin C] 500 mg PO DAILY Magnesium Oxide [Magnesium] 500 mg PO HS Calcium Carbonate/Vitamin D3 [Calcium 600 mg-D3 20 mcg (800 unit)] 1 each PO DAILY Potassium Citrate 99 mg PO DAILY bisacodyL [Dulcolax] 5 mg PO DAILY PRN PRN Reason: Constipation Calciummgzinc 1 dose PO DAILY Multivit with Calcium,Iron,Min [Women's Multivitamin] 1 each PO DAILY Biotin [Nbok-Tvgo-Pyyhe] 6,000 mcg PO DAILY Cyclobenzaprine [Flexeril] 5 - 10 mg PO BID PRN PRN Reason: Pain hydroCHLOROthiazide [Hydrodiuril] 25 mg PO DAILY Atorvastatin [Lipitor] 20 mg PO HS Discharge Medication List Ergocalciferol [Vitamin D2 (1250 Mcg = 01917 Iu)] 125 mcg PO DAILY 08/02/21 [History] Venlafaxine HCl ER [Effexor XR] 150 mg PO QAM 08/02/21 [History] Ascorbic Acid [Vitamin C] 500 mg PO DAILY 10/12/22 [History] Calcium Carbonate/Vitamin D3 [Calcium 600 mg-D3 20 mcg (800 unit)] 1 each PO DAILY 10/12/22 [History] Magnesium Oxide [Magnesium] 500 mg PO HS 10/12/22 [History] Potassium Citrate 99 mg PO DAILY 10/24/22 [History] Atorvastatin [Lipitor] 20 mg PO HS 12/19/23 [History] Biotin [Rfpy-Xgdm-Pkvmt] 6,000 mcg PO DAILY 12/19/23 [History] Calciummgzinc 1 dose PO DAILY 12/19/23 [History] Cyclobenzaprine [Flexeril] 5 - 10 mg PO BID PRN 12/19/23 [History] Ferrous Sulfate [Iron (65 MG Elemental)] 325 mg PO DAILY 12/19/23 [History] Multivit with Calcium,Iron,Min [Women's Multivitamin] 1 each PO DAILY 12/19/23 [History] Vitamin E (Dl,Tocopheryl Acet) [Vitamin E (400 Iu = 180 mg)] 400 unit PO DAILY 12/19/23 [History] bisacodyL [Dulcolax] 5 mg PO DAILY PRN 12/19/23 [History] hydrOXYzine HCL 25 - 50 mg PO HS 12/19/23 [History] hydroCHLOROthiazide [Hydrodiuril] 25 mg PO DAILY 12/19/23 [History] traMADol HCL 50 mg PO Q6H PRN 12/19/23 [History] Omeprazole [PriLOSEC] 40 mg PO DAILY #14 cap 12/23/23 [Rx] Follow up Appointment(s)/Referral(s): [facility] [NON-STAFF] - 01/15/24 3:15 pm Patient Instructions/Handouts: Colorectal Polyps (GEN), Peptic Ulcer (ED) Activity/Diet/Wound Care/Special Instructions: Repeat colonoscopy 3 years, 2026 Discharge Disposition: HOME SELF-CARE
[2023-12-23 09:53] VITALS: BP 115/67; PULSE 62; RESP 16
== END 2023-12-23 10:24 | disposition home or self-care (01) ==
LOC: ORWHC2ENDO 08:38
PROVIDERS: ATTEND Surgery Plastic and Reconstructive Surgery
DX: K25.3 Acute gastric ulcer without hemorrhage or perforation (principal); K28.3 Acute gastrojejunal ulcer without hemorrhage or perforation; K28.7 Chronic gastrojejunal ulcer without hemorrhage or perforation; K29.50 Unspecified chronic gastritis without bleeding; K21.9 Gastro-esophageal reflux disease without esophagitis; Z12.11 Encounter for screening for malignant neoplasm of colon; D12.2 Benign neoplasm of ascending colon; K64.0 First degree hemorrhoids; Z98.84 Bariatric surgery status; G47.30 Sleep apnea, unspecified; M19.90 Unspecified osteoarthritis, unspecified site; Z79.899 Other long term (current) drug therapy; Z88.1 Allergy status to other antibiotic agents; Z87.891 Personal history of nicotine dependence; Z85.44 Personal history of malignant neoplasm of other female genital organs; Z80.0 Family history of malignant neoplasm of digestive organs
CPT/HCPCS: 43239; 45385; 88305

== ENCOUNTER → 2024-01-15 | Outpatient (CLI) | payer OTHER ==
[2024-01-15 15:22] VITALS: BP 132/78; PULSE 72; RESP 16; BMI 27.3
--- NOTE | 2024-01-15 16:08 | P.BASOAP ---
Subjective Progress Note Date: 01/15/24 EGD and colon is done and reviewed. She has ulcers. Will continue. She just had teeth pulled. Needs lifelong medication. Objective - Vital Signs Vital signs: Vital Signs Temp Pulse 72 01/15/24 15:16 Resp 16 01/15/24 15:16 BP 132/78 01/15/24 15:16 Pulse Ox FiO2 Intake & Output 01/14/24 01/15/24 01/15/24 18:59 06:59 18:59 Weight 72.121 kg Assessment/Plan Plan: Date: 01/15/24 Initial Weight: 104.78 kg Initial BMI: 39.6 Current Weight: 72.121 kg Current BMI: 27.3 Type of Surgery: Total Volume in Band: Previous Volume: Volume Removed: Volume Added: Band Size:
== END ==
LOC: BARWHC3 14:29
PROVIDERS: ATTEND Surgery Plastic and Reconstructive Surgery
DX: E66.01 Morbid (severe) obesity due to excess calories (principal); Z88.1 Allergy status to other antibiotic agents; Z68.27 Body mass index [BMI] 27.0-27.9, adult; Z87.891 Personal history of nicotine dependence
CPT/HCPCS: 99211

== ENCOUNTER 2024-09-15 11:44 | Emergency (ER) | payer MEDICARE, OTHER ==
[2024-09-15 11:51] VITALS: TEMP 98.4
--- NOTE | 2024-09-15 13:14 | ED ---
Abdominal Pain HPI - General Chief Complaint: Abdominal Pain Stated Complaint: Abd pain Time Seen by Provider: 09/15/24 12:00 Source: patient, RN notes reviewed Mode of arrival: ambulatory Limitations: no limitations - History of Present Illness Initial Comments: 64-year-old female presenting to the emergency room with complaints of worsening right lower quadrant abdominal pain over the past 4 to 5 days. Patient states that she was evaluated by her primary care provider yesterday where she was prescribed antibiotics with concern for possible appendicitis. 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 States that the pain feeling mildly radiates into her back. She endorses the nausea with no reported emesis. Endorses chills with no reported fevers. Denies urinary or bowel habit complaints. Previous cholecystectomy gastric bypass. - Related Data Home Medications Medication Instructions Recorded Confirmed Ergocalciferol [Vitamin D2 (1250 125 mcg PO DAILY 08/02/21 01/15/24 Mcg = 84282 Iu)] Venlafaxine HCl ER [Effexor XR] 150 mg PO QAM 08/02/21 01/15/24 Ascorbic Acid [Vitamin C] 500 mg PO DAILY 10/12/22 01/15/24 Calcium Carbonate/Vitamin D3 1 each PO DAILY 10/12/22 01/15/24 [Calcium 600 mg-D3 20 mcg (800 unit)] Magnesium Oxide [Magnesium] 500 mg PO HS 10/12/22 01/15/24 Potassium Citrate 99 mg PO DAILY 10/24/22 01/15/24 Atorvastatin [Lipitor] 20 mg PO HS 12/19/23 01/15/24 Biotin [Fadm-Jnux-Ahizp] 6,000 mcg PO DAILY 12/19/23 01/15/24 Calciummgzinc 1 dose PO DAILY 12/19/23 01/15/24 Cyclobenzaprine [Flexeril] 5 - 10 mg PO BID PRN 12/19/23 01/15/24 Ferrous Sulfate [Iron (65 MG 325 mg PO DAILY 12/19/23 01/15/24 Elemental)] Multivit with Calcium,Iron,Min 1 each PO DAILY 12/19/23 01/15/24 [Women's Multivitamin] Vitamin E (Dl,Tocopheryl Acet) 400 unit PO DAILY 12/19/23 01/15/24 [Vitamin E (400 Iu = 180 mg)] bisacodyL [Dulcolax] 5 mg PO DAILY PRN 12/19/23 01/15/24 hydrOXYzine HCL 25 - 50 mg PO HS 12/19/23 01/15/24 hydroCHLOROthiazide [Hydrodiuril] 25 mg PO DAILY 12/19/23 01/15/24 traMADol HCL 50 mg PO Q6H PRN 12/19/23 01/15/24 Aspirin [Adult Low Dose Aspirin EC] 81 mg PO DAILY 01/15/24 01/15/24 Previous Rx's Medication Instructions Recorded Omeprazole [PriLOSEC] 40 mg PO DAILY #14 cap 12/23/23 Omeprazole [PriLOSEC] 40 mg PO DAILY #90 cap 01/15/24 Allergies Allergy/AdvReac Type Severity Reaction Status Date / Time cephalexin [From Keflex] AdvReac Yeast Verified 09/15/24 11:51 Infection Review of Systems ROS Statement: Those systems with pertinent positive or pertinent negative responses have been documented in the HPI. ROS Other: All systems not noted in ROS Statement are negative. Past Medical History Past Medical History: Cancer, GERD/Reflux, Osteoarthritis (OA), Sleep Apnea/CPAP/BIPAP Additional Past Medical History / Comment(s): heart murmur., multiple thyroid nodules, past htn-resolved with wt loss., no sleep apnea machine used, vulva c ancer 2022 History of Any Multi-Drug Resistant Organisms: None Reported Past Surgical History: Bariatric Surgery, Breast Surgery, Cholecystectomy, Ton sillectomy Additional Past Surgical History / Comment(s): Right breast lumpectomy, thyroid biopsy, D&C. , EGD, COLONOSCOPY, LT BREAST NEEDLE BX, D & C GAstric Bypass 10-31-20, vulva cancer removed 2022 Past Anesthesia/Blood Transfusion Reactions: No Reported Reaction Additional Past Anesthesia/Blood Transfusion Reaction / Comment(s): hx of blood transfusion-denies reaction Past Psychological History: Anxiety, Depression Smoking Status: Former smoker Past Alcohol Use History: Rare Past Drug Use History: None Reported - Past Family History Mother Family Medical History: Cancer Additional Family Medical History / Comment(s): Thyroid and breast cancer. maternal uncle colon cancer General Exam Limitations: no limitations Neck exam: Present: normal inspection. Absent: tenderness, meningismus, lymphadenopathy Respiratory exam: Present: normal lung sounds bilaterally. Absent: respiratory distress, wheezes, rales, rhonchi, stridor Cardiovascular Exam: Present: regular rate, normal rhythm, normal heart sounds. Absent: systolic murmur, diastolic murmur, rubs, gallop, clicks GI/Abdominal exam: Present: soft, tenderness, normal bowel sounds. Absent: guarding, rebound, rigid Expanded GI/Abdominal exam: Present: tenderness at McBurney's Point. Absent: Perez's s ign, Rovsing's sign Extremities exam: Present: normal inspection, full ROM, normal capillary refill. Absent: tenderness, pedal edema, joint swelling, calf tenderness Back exam: Present: normal inspection. Absent: CVA tenderness (R), CVA tenderness (L) Course Vital Signs 09/15/24 09/15/24 11:49 13:41 Temperature 98.4 F Pulse Rate 81 63 Respiratory 18 Rate Blood Pressure 151/80 O2 Sat by Pulse 97 94 L Oximetry Medical Decision Making - Medical Decision Making Was pt. sent in by a medical professional or institution (, PA, MOBILE HOME LOT UTILITY WORKER, urgent care, hospital, or detention...) When possible be specific @ -No Did you speak to anyone other than the patient for history (EMS, parent, family, police, friend...)? What history was obtained from this source @ -No Did you review nursing and triage notes (agree or disagree)? Why? @ -I reviewed and agree with nursing and triage notes Were old charts reviewed (outside hosp., previous admission, EMS record, old EKG, old radiological studies, urgent care reports/EKG's, detention records)? Report findings @ -No old charts were reviewed Differential Diagnosis (chest pain, altered mental status, abdominal pain women, abdominal pain men, vaginal bleeding, weakness, fever, dyspnea, syncope, headache, dizziness, GI bleed, back pain, seizure, CVA, palpatations, mental health, musculoskeletal)? @ -Differential Abdominal Pain Women: Appendicitis, Cholecystitis, diverticulosis, ischemic bowel, pancreatitis, hepatitis, UTI, gastroenteritis, AAA, incarcerated hernia, bowel obstruction, constipation, inflammatory bowel, hepatitis, peptic ulcer disease, splenic infarction, perforated viscus, vulvitis, ovarian torsion, PID, kidney stone, placenta abruption, this is not meant to be an all-inclusive list EKG interpreted by me (3pts min.). @ -None X-rays interpreted by me (1pt min.). @ -None done CT interpreted by me (1pt min.). @ -CT imaging of the abdomen and pelvis with IV contrast reveals a mildly distended uterine cavity with hyperdense fluid, no inflammatory changes identified in the bowel wall or mesentery U/S interpreted by me (1pt. min.). @ -Pelvic ultrasound reveals a thickened endometrium with an indeterminant intramuscular hypoechoic lesion identified on previous imaging What testing was considered but not performed or refused? (CT, X-rays, U/S, labs)? Why? @ -None What meds were considered but not given or refused? Why? @ -None Did you discuss the management of the patient with other professionals (steve serrano i.eNate Fierro, PA, MOBILE HOME LOT UTILITY WORKER, lab, RT, psych nurse, social media community manager, bullet lubricating machine operator, teacher, special loan officer, outsole caser)? Give summary @ -No Was smoking cessation discussed for >3mins.? @ -No Was critical care preformed (if so, how long)? @ -No Were there social determinants of health that impacted care today? How? (Homelessness, low income, unemployed, alcoholism, drug addiction, transportation, low edu. Level, literacy, decrease access to med. care, [facility], rehab)? @ -No Was there de-escalation of care discussed even if they declined (Discuss DNR or withdrawal of care, Hospice)? DNR status @ -No What co-morbidities impacted this encounter? (DM, HTN, Smoking, COPD, CAD, Cancer, CVA, ARF, Chemo, Hep., AIDS, mental health diagnosis, sleep apnea, morbid obesity)? @ -None Was patient admitted / discharged? Hospital course, mention meds given and route, prescriptions, significant lab abnormalities, going to OR and other pertinent info. @ -Discharge. 64 female presenting with complaints of right lower quadrant abdominal pain. Patient does have right lower quadrant abdominal pain over McBurney's point however negative psoas and obturator sign. She is provided with antiemetics and pain control and undergo CT imaging for further evaluation. Laboratory test including CBC, CMP, urinalysis unremarkable. CT imaging of the abdomen pelvis reveals a mildly distended uterine cavity with hyperdense fluid with no inflammatory changes identified within the bowel. Ultrasound imaging reveals a thickened endometrium. Recommend that patient follow-up with gynecology for endometrial biopsy for further evaluation. Patient is due for discharge. Return parameters discussed. Case discussed with my attending Dr. Castellano. Undiagnosed new problem with uncertain prognosis? @ -No Drug Therapy requiring intensive monitoring for toxicity (Heparin, Nitro, Insulin, Cardizem)? @ -No Were any procedures done? @ -No Diagnosis/symptom? @ -Abdominal pain unspecified, endometrial thickening Acute, or Chronic, or Acute on Chronic? @ -Acute Uncomplicated (without systemic symptoms) or Complicated (systemic symptoms)? @ -Uncomplicated Side effects of treatment? @ -No Exacerbation, Progression, or Severe Exacerbation? @ -No Poses a threat to life or bodily function? How? (Chest pain, [place], [place], pneumonia, PE, COPD, DKA, ARF, appy, cholecystitis, CVA, Diverticulitis, Homicidal, Suicidal, threat to staff... and all critical care pts) @ -No - Lab Data Result diagrams: 09/15/24 13:18 09/15/24 13:18 Lab Results 09/15/24 09/15/24 09/15/24 Range/Units 13:15 13:18 13:18 WBC 9.32 (4.50-10.00) 10*3/uL RBC 4.83 (4.10-5.20) 10*6/uL Hgb 13.8 (12.0-15.0) g/dL Hct 39.7 (37.2-46.3) % MCV 82.2 (80.0-97.0) fL MCH 28.6 (27.0-32.0) pg MCHC 34.8 (32.0-37.0) g/dL Plt Count 235 (140-440) 10*3/uL MPV 8.7 L (9.5-12.2) fL Immature Gran % (Auto) 0.4 % Neutrophils % 66.1 % Lymphocytes % 25.5 % Monocytes % 7.4 % Eosinophils % 0.2 % Basophils % 0.4 % Immature Gran # 0.04 (0.00-0.04) 10*3/uL Neutrophils # 6.15 (1.80-7.70) 10*3/uL Lymphocytes # 2.38 (0.90-5.00) 10*3/uL Monocytes # 0.69 (0.20-1.00) 10*3/uL Eosinophils # 0.02 L (0.04-0.35) 10*3/uL Basophils # 0.04 (0.00-0.10) 10*3/uL Sodium 143 (137-145) mmol/L Potassium 3.7 (3.5-5.1) mmol/L Chloride 100 (98-107) mmol/L Carbon Dioxide 37 H (22-30) mmol/L Anion Gap 6 mmol/L BUN 19 H (7-17) mg/dL Creatinine 0.61 (0.52-1.04) mg/dL Est GFR (CKD-EPI)AfAm >90 (>60 ml/min/1.73 sqM) Est GFR (CKD-EPI)NonAf >90 (>60 ml/min/1.73 sqM) Glucose 90 (74-99) mg/dL Plasma Lactic Acid Rufino (0.7-2.0) mmol/L Calcium 9.1 (8.4-10.2) mg/dL Total Bilirubin 0.5 (0.2-1.3) mg/dL AST 51 H (14-36) U/L ALT 36 H (4-34) U/L Alkaline Phosphatase 123 (38-126) U/L Total Protein 7.2 (6.3-8.2) g/dL Albumin 4.6 (3.5-5.0) g/dL Urine Color Colorless Urine Appearance Clear (Clear) Urine pH 6.5 (5.0-8.0) Ur Specific Hartman 1.008 (1.001-1.035) Urine Protein Negative (Negative) Urine Glucose (UA) Negative (Negative) Urine Ketones Negative (Negative) Urine Blood Negative (Negative) Urine Nitrite Negative (Negative) Urine Bilirubin Negative (Negative) Urine Urobilinogen <2.0 (<2.0) mg/dL Ur Leukocyte Esterase Negative (Negative) 09/15/24 Range/Units 13:18 WBC (4.50-10.00) 10*3/uL RBC (4.10-5.20) 10*6/uL Hgb (12.0-15.0) g/dL Hct (37.2-46.3) % MCV (80.0-97.0) fL MCH (27.0-32.0) pg MCHC (32.0-37.0) g/dL Plt Count (140-440) 10*3/uL MPV (9.5-12.2) fL Immature Gran % (Auto) % Neutrophils % % Lymphocytes % % Monocytes % % Eosinophils % % Basophils % % Immature Gran # (0.00-0.04) 10*3/uL Neutrophils # (1.80-7.70) 10*3/uL Lymphocytes # (0.90-5.00) 10*3/uL Monocytes # (0.20-1.00) 10*3/uL Eosinophils # (0.04-0.35) 10*3/uL Basophils # (0.00-0.10) 10*3/uL Sodium (137-145) mmol/L Potassium (3.5-5.1) mmol/L Chloride (98-107) mmol/L Carbon Dioxide (22-30) mmol/L Anion Gap mmol/L BUN (7-17) mg/dL Creatinine (0.52-1.04) mg/dL Est GFR (CKD-EPI)AfAm (>60 ml/min/1.73 sqM) Est GFR (CKD-EPI)NonAf (>60 ml/min/1.73 sqM) Glucose (74-99) mg/dL Plasma Lactic Acid Rufino 1.7 (0.7-2.0) mmol/L Calcium (8.4-10.2) mg/dL Total Bilirubin (0.2-1.3) mg/dL AST (14-36) U/L ALT (4-34) U/L Alkaline Phosphatase (38-126) U/L Total Protein (6.3-8.2) g/dL Albumin (3.5-5.0) g/dL Urine Color Urine Appearance (Clear) Urine pH (5.0-8.0) Ur Specific Hartman (1.001-1.035) Urine Protein (Negative) Urine Glucose (UA) (Negative) Urine Ketones (Negative) Urine Blood (Negative) Urine Nitrite (Negative) Urine Bilirubin (Negative) Urine Urobilinogen (<2.0) mg/dL Ur Leukocyte Esterase (Negative) Disposition Clinical Impression: Lower abdominal pain, unspecified, Thickened endometrium Disposition: HOME SELF-CARE Condition: Stable Instructions (If sedation given, give patient instructions): Acute Abdominal Pain (ED) Additional Instructions: Please return to the Emergency Department if symptoms worsen or any other concerns. Please follow-up with OB in the next few days to schedule outpatient biopsy for further evaluation of thickened endometrium. Is patient prescribed a controlled substance at d/c from ED?: No Referrals: Roseann Veras MD [Primary Care Provider] - 1-2 days Hosea Langford MD [STAFF PHYSICIAN] - 1-2 days Time of Disposition: 16:52
[2024-09-15 13:27] LABS: Basophils # (A) 0.04 10*3/uL (0.00-0.10); Basophils % (A) 0.4 %; Eosinophils # (A) 0.02 10*3/uL (0.04-0.35); Eosinophils % (A) 0.2 %; HCT 39.7 % (37.2-46.3); HGB 13.8 g/dL (12.0-15.0); Lymphocytes # (A) 2.38 10*3/uL (0.90-5.00); Lymphocytes % (A) 25.5 %; MCH 28.6 pg (27.0-32.0); MCHC 34.8 g/dL (32.0-37.0); MCV 82.2 fL (80.0-97.0); Monocytes # (A) 0.69 10*3/uL (0.20-1.00); Monocytes % (A) 7.4 %; Neutrophils # (A) 6.15 10*3/uL (1.80-7.70); Neutrophils % (A) 66.1 %; Platelet Count 235 10*3/uL (140-440); RBC 4.83 10*6/uL (4.10-5.20); RDW 12.8 % (11.5-14.5); WBC 9.32 10*3/uL (4.50-10.00)
[2024-09-15 13:28] LABS: Bilirubin,Urine Negative (Negative); Blood,Urine Negative (Negative); Color,Urine Colorless; Glucose,Urine (UA) Negative (Negative); Ketones,Urine Negative (Negative); Leukocyte Esterase,Urine Negative (Negative); Nitrite,Urine Negative (Negative); PH, Urine 6.5 (5.0-8.0); Protein,Urine Negative (Negative); Specific Gravity,Urine 1.008 (1.001-1.035); Urobilinogen,Urine <2.0 mg/dL (<2.0)
[2024-09-15] MEDS: HYDROmorphone 0.5 MG/0.5 ML SYRINGE IVP STA (13:36)
[2024-09-15] MEDS: ONDANSETRON 4 MG/2 ML VIAL IVP STA (13:36)
[2024-09-15 13:48] LABS: ALT 36 U/L (4-34); AST 51 U/L (14-36); African American GFR (CKD) >90 (>60 ml/min/1.73 sqM); Albumin 4.6 g/dL (3.5-5.0); Alkaline Phosphatase 123 U/L (38-126); Anion Gap 6 mmol/L; Blood Urea Nitrogen 19 mg/dL (7-17); Calcium 9.1 mg/dL (8.4-10.2); Carbon Dioxide 37 mmol/L (22-30); Chloride 100 mmol/L (98-107); Glucose 90 mg/dL (74-99); Non-African American GFR(CKD) >90 (>60 ml/min/1.73 sqM); Potassium 3.7 mmol/L (3.5-5.1); Sodium 143 mmol/L (137-145); Total Protein 7.2 g/dL (6.3-8.2)
--- NOTE | 2024-09-15 15:55 | CT ---
EXAMINATION TYPE: CT abdomen pelvis w con DATE OF EXAM: 09/15/2024 COMPARISON: CT chest, abdomen and pelvis dated 01/19/2020 CLINICAL INDICATION: Female, 64 years old with history of RLQ ab pain; PHH, rlq pain TECHNIQUE: Performed without Oral Contrast and with IV Contrast, patient injected with 100 ml mL of Isovue 300. CT DLP: 877.[address] CTDI: mGy Automated exposure control for dose reduction was used. FINDINGS: The lung bases are clear. There are postsurgical changes involving the stomach and small bowel likely a gastric bypass surgery. There is surgical absence of the gallbladder. There is no biliary ductal dilatation. There is no focal mass or organomegaly involving the liver, pancreas, spleen or adrenal glands. There is no solid renal mass or hydronephrosis and there is homogeneous contrast enhancement of the r enal parenchyma. The caliber the abdominal aorta is normal is no retroperitoneal adenopathy or hemorr hemanth. The bowel loops are normal in caliber and there is no evidence of dilatation or obstruction. No infla mmatory changes are identified in the bowel wall or mesentery. There is no free intraperitoneal air or fluid. There is low density fluid within the uterine cavity and further evaluation is warranted in a patient of this age. The osseous structures and soft tissues are intact. IMPRESSION: 1. Probable gastric bypass surgery. 2. Mildly distended uterine cavity with hyperdense fluid and further evaluation is warranted with pel alec ultrasound or MRI of the pelvis. [facility], , 09/15/2024 3:53 PM
[2024-09-15] MEDS: KETOROLAC 15 MG/ML 1 ML VIAL IVP STA (16:22)
--- NOTE | 2024-09-15 16:38 | US ---
EXAMINATION TYPE: US pelvis complete transvag DATE OF EXAM: 09/15/2024 COMPARISON: CT 09/15/2024 CLINICAL INDICATION: Female, 64 years old with history of distended uterine cavity, r lower pain; TECHNIQUE: Transvaginal (TV) and Transabdominal (TA) . Transabdominal grayscale sonographic images of the pelvis were acquired. Transvaginal sonographic im ages were medically necessary to better assess the following anatomy: Ovaries Doppler imaging: Color Doppler Images were obtained. Spectral doppler images were obtained. FINDINGS: Date of LMP: At about age 42 EXAM MEASUREMENTS: Uterus: 6.6 x 3.3 x 4.8 cm Endometrial Stripe: 2.5 cm Right Ovary: 2.6 x 1.3 x 2.7 cm Left Ovary: 1.6 x 1.0 x 1.9 cm 1. Uterus: Anteverted wnl 2. Endometrium: Heterogenous and thickened 3. Right Ovary: wnl 4. Left Ovary: wnl Spectral, color and waveform doppler imaging shows good arterial and venous flow within the ovaries ; there is no evidence for ovarian torsion. 5. Bilateral Adnexa: wnl 6. Posterior cul-de-sac: wnl Hypoechoic lesion have patient's palpable abnormality is a 2.7 x 1.6 x 1.9 cm this is thought to be w ithin the rectus abdominis muscle on the right. IMPRESSION: 1. Thickened endometrium for a postmenopausal patient. Further workup recommended to exclude endomet rial carcinoma. 2. Indeterminate intramuscular hypoechoic lesion which could possibly represent hematoma. Correlate for recent history of trauma to the rectus abdominis. This is felt to be present on 09/15/2024 CT. If t here is a history of malignancy versus malignancy within the endometrium this could be metastatic dis ease. [facility], , 09/15/2024 4:35 PM
[2024-09-15 17:11] VITALS: BP 137/85; PULSE 68; RESP 17
== END 2024-09-15 17:05 | disposition home or self-care (01) ==
LOC: EC 11:44
DX: R93.89 Abnormal findings on diagnostic imaging of other specified body structures (principal); R10.31 Right lower quadrant pain; Z87.891 Personal history of nicotine dependence; Z88.1 Allergy status to other antibiotic agents
CPT/HCPCS: 36415; 80053; 83605; 85025; 81003; 93975; 76856; 76830; 74177; 99284; 96374; 96375 ×2; J2405; J1885; J1171; Q9967

== ENCOUNTER → 2024-09-24 | Outpatient (CLI) | payer MEDICARE, OTHER ==
--- NOTE | 2024-09-24 10:36 | MM ---
Reason for Exam: Screening (asymptomatic). Last mammogram was performed 1 year(s) and 7 month(s) ago. Patient History: Menarche at age 14. First Full-Term at age 21. Postmenopausal. Endometrial cancer. Patient used Hormonal Contraceptives for 14 years. Excisional Biopsy on the Right side. Maternal aunt had breast cancer, age 40. Mother had breast cancer. Risk Values: Elvira 5 year model risk: 3.4%. NCI Lifetime model risk: 14.6%. Prior Study Comparison: 02/01/2021 Bilateral Screening Mammogram, LOCATED WITHIN [facility]. 02/26/2022 Bilateral MG 3D screening mammo w/cad, LOCATED [facility]IN [facility]. 02/27/2023 Bilateral MG 3D screening mammo w/cad, LOCATED [facility]IN [facility]. Tissue Density: The breasts are heterogeneously dense, which may obscure small masses. Findings: Analyzed By CAD. There is no suspicious group of microcalcifications or new suspicious mass in either breast. Overall Assessment: Negative, BI-RAD 1 Management: Screening Mammogram of both breasts in 1 year. . Patient should continue monthly self-breast exams. A clinical breast exam by your physician is recommended on an annual basis. This exam should not preclude additional follow-up of suspicious palpable abnormalities. Note on Elvira scores and lifetime risk: 1. A Elvira score greater than 3% is considered moderate risk. If this is the case, consider specialist referral to assess eligibility for a risk reducing agent. 2. If overall lifetime risk for the development of breast cancer is 20% or higher, the patient may qualify for future screening with alternating mammogram and breast MRI. [facility], , 09/24/2024 10:04 AM. Electronically signed and approved by: Arik Ferreira M.D.
== END | disposition home or self-care (01) ==
LOC: RADMAMWWP 09:21
PROVIDERS: ATTEND Family Medicine
DX: Z12.31 Encounter for screening mammogram for malignant neoplasm of breast (principal); R92.333 Mammographic heterogeneous density, bilateral breasts; Z78.0 Asymptomatic menopausal state; Z92.0 Personal history of contraception; Z80.3 Family history of malignant neoplasm of breast
CPT/HCPCS: 77063; 77067